=== PATIENT | male | born 1935 | race Caucasian/White ===

== ENCOUNTER 2017-05-22 08:01 | Emergency (ER) | payer MEDICARE ==
[~2017-05-22] VITALS: Ht 180.3 cm; Wt 127.0 kg
[~2017-05-22 08:01] MED LIST: AMIO200T PO; ASPI81TA11 PO; ATOR40TA49 PO; CORE25TA PO; COUM1TAB PO; COZA100T PO; DIGO0.12 PO; LASI20TA PO; LEVEMIR SQ; LYRI100C PO; PRAS10TA PO; REPA.5 OR; VICTOZA SQ; ZETI10TA5 PO
[2017-05-22 08:03] VITALS: BP 171/105; PULSE 106; RESP 16; TEMP 98.2; O2SAT 98
--- NOTE | 2017-05-22 08:24 | PD ---
HPI Chief Complaint: Cardiac Complaint Time Seen by Provider: 08:19 Travel History International Travel<30 days: No Contact w/Intl Traveler<30days: No Traveled to known affect area: No History of Present Illness HPI A 81 male presents to the emergency department for trouble breathing. It has been happening for the past 4 weeks and has become owrse. It is much worse when he lies down and not as bad when he sits up. He has to sleep on 5 pillows. He also has been coughing and has to sit up when he coughs. He gets short of breath when he has to walk from the car to the house. He has not coughed up anything, he has no chest pain, no heart palpitations, no syncope, no dizziness, no N&V, no fevers. He has a hx of an CA 7 years ago and a hx of a fib. History Past Medical History Narrative Medical Hyperlipidemia, hypertension, CAD, diabetes, A fib, CHF Past Surgical History Narrative Surgical Heart stent in 2009 Social History Alcohol Use: No Tobacco Use: No Allergies-Medications (Allergen,Severity, Reaction): Coded Allergies: pioglitazone (Unverified Allergy, Severe, 05/22/17) Reported Meds & Prescriptions Reported Meds & Active Scripts Active Reported Warfarin 2.5 Mg Tab 2.5 Mg PO DAILY ONE 2.5 MG TAB Q SAT, MON, TUES, THURS Warfarin 5 Mg Tab 5 Mg PO DAILY ONE 5 MG TAB Q MON, WED, FRI Humulin R Inj (Insulin Human Regular) 1,000 Unit/10 Ml Vial 5-25 Units SQ ACHS Max dose at bedtime:( )units; sugars < 70,(0)units; sugars 150-199,(5)units; sugars 200-249,(10)units; sugars 250-299,(15)units; sugars 300-349,(20)units; sugars more than 349,(25)units. Atorvastatin (Atorvastatin Calcium) 40 Mg Tab 40 Mg PO HS Furosemide 40 Mg Tab 40 Mg PO DAILY Victoza Inj (Liraglutide Inj) 18 Mg/3 Ml Pen 1.8 Mg SQ DAILY Carvedilol 25 Mg Tab 25 Mg PO DAILY Lyrica (Pregabalin) 200 Mg Cap 200 Mg PO BID Physical Exam Narrative GENERAL: A WDWN male presenting in no acute respiratory distress SKIN: Warm and dry. HEAD: Atraumatic. Normocephalic. EYES: Pupils equal and round. No scleral icterus. No injection or drainage. ENT: No nasal bleeding or discharge. Mucous membranes pink and moist. NECK: Trachea midline. No JVD. CARDIOVASCULAR: Regular rate and rhythm. RESPIRATORY: No accessory muscle use. Breath sounds equal bilaterally. Faint crackles bilaterally in lower lobes. GASTROINTESTINAL: Abdomen soft, non-tender, nondistended. Hepatic and splenic margins not palpable. MUSCULOSKELETAL: Extremities without clubbing, or cyanosis. No obvious deformities. +1 B/L edema in lower extremities NEUROLOGICAL: Awake and alert. No obvious cranial nerve deficits. Motor grossly within normal limits. Five out of 5 muscle strength in the arms and legs. Normal speech. PSYCHIATRIC: Appropriate mood and affect; insight and judgment normal. Data Data Last Documented VS Vital Signs Date Time Temp Pulse Resp B/P (MAP) Pulse Ox O2 Delivery O2 Flow Rate FiO2 05/22/17 10:02 89 16 188/92 (124) 99 Room Air 05/22/17 08:03 98.2 Orders Orders Electrocardiogram (05/22/17 08:32) B-Type Natriuretic Peptide (05/22/17 08:32) Ckmb (Isoenzyme) Profile (05/22/17 08:32) Complete Blood Count With Diff (05/22/17 08:32) Comprehensive Metabolic Panel (05/22/17 08:32) Magnesium (Mg) (05/22/17 08:32) Prothrombin Time / Inr (Pt) (05/22/17 08:32) Act Partial Throm Time (Ptt) (05/22/17 08:32) Troponin I (05/22/17 08:32) Chest, Single Ap (05/22/17 08:32) Ecg Monitoring (05/22/17 08:32) Bilateral Bp Monitoring (05/22/17 08:32) Iv Access Insert/Monitor (05/22/17 08:32) Oximetry (05/22/17 08:32) Oxygen Administration (05/22/17 08:32) Sodium Chloride 0.9% Flush (Ns Flush) (05/22/17 08:45) Labs Laboratory Tests Test 05/22/17 08:35 White Blood Count 10.2 TH/MM3 Red Blood Count 4.49 MIL/MM3 Hemoglobin 14.3 GM/DL Hematocrit 41.8 % Mean Corpuscular Volume 93.0 FL Mean Corpuscular Hemoglobin 31.8 PG Mean Corpuscular Hemoglobin Concent 34.2 % Red Cell Distribution Width 14.8 % Platelet Count 176 TH/MM3 Mean Platelet Volume 9.7 FL Neutrophils (%) (Auto) 79.5 % Lymphocytes (%) (Auto) 10.9 % Monocytes (%) (Auto) 7.1 % Eosinophils (%) (Auto) 2.1 % Basophils (%) (Auto) 0.4 % Neutrophils # (Auto) 8.1 TH/MM3 Lymphocytes # (Auto) 1.1 TH/MM3 Monocytes # (Auto) 0.7 TH/MM3 Eosinophils # (Auto) 0.2 TH/MM3 Basophils # (Auto) 0.0 TH/MM3 CBC Comment DIFF FINAL Differential Comment Prothrombin Time 40.6 SEC Prothromb Time International Ratio 4.0 RATIO Activated Partial Thromboplast Time 41.3 SEC Blood Urea Nitrogen 23 MG/DL Creatinine 1.45 MG/DL Random Glucose 161 MG/DL Total Protein 7.0 GM/DL Albumin 3.3 GM/DL Calcium Level 8.5 MG/DL Magnesium Level 2.0 MG/DL Alkaline Phosphatase 79 U/L Aspartate Amino Transf (AST/SGOT) 22 U/L Alanine Aminotransferase (ALT/SGPT) 33 U/L Total Bilirubin 0.8 MG/DL Sodium Level 138 MEQ/L Potassium Level 4.3 MEQ/L Chloride Level 105 MEQ/L Carbon Dioxide Level 27.3 MEQ/L Anion Gap 6 MEQ/L Estimat Glomerular Filtration Rate 47 ML/MIN Total Creatine Kinase 79 U/L Troponin I LESS THAN 0.02 NG/ML B-Type Natriuretic Peptide 140 PG/ML MDM Medical Decision Making Medical Screen Exam Complete: Yes Emergency Medical Condition: Yes Differential Diagnosis ACS versus CHF versus COPD versus metabolic derangement. Narrative Course 81-year-old male with a history of hypertension, atrial fibrillation, questionable CHF, presents here today with complaints of shortness of breath with exertion and orthopnea. The patient denies any chest pain, chest pressure. He reports holding his Lasix 2 days and then restarted it with double the dose over the last 2 days. states that his lower extremities appear to be more swollen than previous. He has no calf tenderness or palpable cords in his popliteal area. Chest x-ray shows cardiomegaly. On exam he had fine crackles at the bases. The patient's cardiac enzymes are within normal limits. He does have some renal insufficiency. Case was discussed with Dr. Orellana, his community health coordinator, who recommended not changing any medications at this point. He states he would rather see him in the office and discuss possible ablation versus over therapy. The patient will be discharged told to continue his medications except to hold his Coumadin for 2 days since his INR was 4.0. They're instructed to call Dr. Nguyen' his office. He is instructed to return of he develops any worsening symptoms, chest pain, or any other reason the concerns him. Diagnosis Primary Impression: Dyspnea on exertion Additional Impressions: Orthopnea mild fluid retention over anticoagulated Additional Instructions: Hold Coumadin 2 days. I'll up with Dr. Nguyen. Call his office for an appointment. Return if worsening symptoms, chest pain, chest pressure, or any other reason the concerns her. Disposition: 01 DISCHARGE HOME Condition: Stable Rios Stallings MD May 22, 2017 08:24
[2017-05-22] MEDS ORDERED: SODIUM CHLORIDE 0.9% FLUSH 10 ML FLUSH IVF PRN (08:45)
[2017-05-22 08:46] LABS: AUTOMATED NEUTROPHIL # 8.1 TH/MM3 (1.8-7.7); BASOPHIL % 0.4 % (0.0-2.0); EOSINOPHIL # 0.2 TH/MM3 (0-0.4); EOSINOPHIL % 2.1 % (0.0-4.0); HEMATOCRIT 41.8 % (39.0-51.0); HEMOGLOBIN 14.3 GM/DL (13.0-17.0); LYMPH % 10.9 % (9.0-44.0); LYMPHOCYTE # 1.1 TH/MM3 (1.0-4.8); MEAN CORPUSCULAR HEMOGLOBIN 31.8 PG (27.0-34.0); MEAN CORPUSCULAR HGB CONC 34.2 % (32.0-36.0); MEAN PLATELET VOLUME 9.7 FL (7.0-11.0); MONO % 7.1 % (0.0-8.0); MONOCYTE # 0.7 TH/MM3 (0-0.9); NEUT % 79.5 % (16.0-70.0); PLATELET COUNT 176 TH/MM3 (150-450); RED BLOOD COUNT 4.49 MIL/MM3 (4.50-5.90); RED CELL DISTRIBUTION WIDTH 14.8 % (11.6-17.2); WHITE BLOOD COUNT 10.2 TH/MM3 (4.0-11.0)
[2017-05-22 08:50] VITALS: O2SAT 97
[2017-05-22 08:56] LABS: PROTHROMBIN TIME - PATIENT 40.6 SEC (9.8-11.6)
[2017-05-22 09:10] LABS: ALBUMIN 3.3 GM/DL (3.4-5.0); ALT (GPT) 33 U/L (12-78); AST (GOT) 22 U/L (15-37); BICARBONATE 27.3 MEQ/L (21.0-32.0); BLOOD UREA NITROGEN 23 MG/DL (7-18); CALCIUM 8.5 MG/DL (8.5-10.1); CHLORIDE 105 MEQ/L (98-107); CREATININE 1.45 MG/DL (0.60-1.30); GLOMERULAR FILTRATION RATE 47 ML/MIN (>89); GLUCOSE,RANDOM 161 MG/DL (74-106); SODIUM (NA) 138 MEQ/L (136-145)
[2017-05-22 09:14] LABS: ALKALINE PHOSPHATASE 79 U/L (45-117); TOTAL BILIRUBIN ADULT 0.8 MG/DL (0.2-1.0); TROPONIN I LESS THAN 0.02 NG/ML (0.02-0.05)
--- NOTE | 2017-05-22 09:24 | RADRPT ---
EXAM DATE/TIME: 05/22/2017 08:42 [facility] COMPARISON: CHEST SINGLE AP, June 11, 2012, 8:53. INDICATIONS : Chest discomfort. Palpitations. Cough when lying down. MEDICAL HISTORY : Cardiovascular disease. SURGICAL HISTORY : Caridac stent. ENCOUNTER: Initial ACUITY: 1 day PAIN SCORE: 1/10 LOCATION: Bilateral chest FINDINGS: No significant new focal pleural or parenchymal opacities. Cardiac silhouette remains mildly enlarged . Bony thorax is intact. CONCLUSION: 1. Stable mild cardiomegaly. 2. No significant interval change or acute abnormality. Tre Diaz MD on May 22, 2017 at 9:20 Board Certified Radiologist. This report was verified electronically.
[2017-05-22] MEDS ORDERED: CARV25TA PO (09:50)
[2017-05-22] MEDS ORDERED: LYRI200C PO (09:50)
[2017-05-22] MEDS ORDERED: WARF-23 PO (09:50)
[2017-05-22] MEDS ORDERED: FURO40TA PO (09:50)
[2017-05-22] MEDS ORDERED: WARF-18 PO (09:50)
[2017-05-22] MEDS ORDERED: ATOR40TA16 PO (09:50)
[2017-05-22] MEDS ORDERED: VICT18IN SQ (09:50)
[2017-05-22] MEDS ORDERED: INSU100V2 SQ (09:50)
[2017-05-22 10:02] VITALS: BP 188/92; PULSE 89; RESP 16; O2SAT 99
--- NOTE | 2017-05-22 19:12 | EKG ---
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
== END 2017-05-22 11:44 | disposition home or self-care (01) ==
LOC: NEPC 08:01
DX: R06.00 Dyspnea, unspecified (principal); R60.9 Edema, unspecified; I48.91 Unspecified atrial fibrillation; I25.2 Old myocardial infarction; R94.31 Abnormal electrocardiogram [ECG] [EKG]; I51.7 Cardiomegaly; I25.10 Atherosclerotic heart disease of native coronary artery without angina pectoris; I11.0 Hypertensive heart disease with heart failure; I50.9 Heart failure, unspecified
CPT/HCPCS: 71045; 80053; 82550; 83735; 83880; 84484; 85025; 85610; 85730; 93005; 99285

== ENCOUNTER 2017-06-05 14:56 | Day surgery (SDC) | payer MEDICARE ==
[~2017-06-05] VITALS: Ht 177.8 cm; Wt 131.8 kg
[~2017-06-05 14:56] MED LIST changes: -AMIO200T PO; -ASPI81TA11 PO; +ATOR40TA16 PO; -ATOR40TA49 PO; +CARV25TA PO; -CORE25TA PO; -COUM1TAB PO; -COZA100T PO; +DEXAMETHASONE SOD PHOS 4 MG/ML VIAL IV ONE; -DIGO0.12 PO; +ESMOLOL HCL 100 MG/10 ML VIAL IV ONE; +FURO40TA PO; +GLYCOPYRROLATE 1 MG/5 ML SYRINGE IV PUSH ONE; +INSU100V2 SQ; +LABETALOL HCL 100 MG/20 ML VIAL IV ONE; -LASI20TA PO; -LEVEMIR SQ; +LIDOCAINE HCL 1% PF 5 ML SYRINGE OTHER ONE; -LYRI100C PO; +LYRI200C PO; +NEOSTIGMINE 5 MG/5 ML SYRINGE IV PUSH ONE; +ONDANSETRON HCL 4 MG/2 ML VIAL IV ONE; +PHENYLEPH/NS 1000 MCG/10 ML SYR IV ONE; -PRAS10TA PO; +PROPOFOL 200 MG/20 ML AMP IV ONE; -REPA.5 OR; +ROCURONIUM INJ 50 MG/5 ML SYRINGE IV PUSH ONE; +VICT18IN SQ; -VICTOZA SQ; +WARF-18 PO; +WARF-23 PO; -ZETI10TA5 PO; +ePHEDrine/NS 25 MG/5 ML SYRINGE IV ONE; +hydrALAZINE HCL 20 MG/ML VIAL IV ONE
[2017-06-05] MEDS ORDERED: PROPOFOL 200 MG/20 ML AMP OTHER ONE (14:57)
[2017-06-05] MEDS ORDERED: ONDANSETRON HCL 4 MG/2 ML VIAL IV PUSH ONE (14:57)
[2017-06-05 15:40] VITALS: BP 149/123; PULSE 84; RESP 20; TEMP 98.2; O2SAT 97
[2017-06-05] MEDS ORDERED: LACTATED RINGER'S 1000 ML IV PRN (15:45)
[2017-06-05] MEDS ORDERED: SODIUM CHLORID 0.9% 500 ML IV PRN (15:45)
[2017-06-05] MEDS ORDERED: POVIDONE IODINE 5% (ANTISEPSIS KIT) 4 APPLICATIONS EACH NARE PRN (15:45)
[2017-06-05] MEDS ORDERED: SODIUM CHLORID 0.9% 500 ML INJ 500 ML IV SCH (15:45)
[2017-06-05] MEDS ORDERED: LORazepam 1 MG TAB SL SCH (15:45)
[2017-06-05] MEDS ORDERED: CHLORHEXIDINE GLUCONATE 2 % 1 PACK (2 CLOTHS) TOPICAL PRN (15:45)
[2017-06-05] MEDS ORDERED: METOPROLOL TARTRATE 25 MG TAB PO PRN (15:45)
[2017-06-05 16:23] LABS: AUTOMATED NEUTROPHIL # 5.5 TH/MM3 (1.8-7.7); BASOPHIL % 0.4 % (0.0-2.0); EOSINOPHIL # 0.2 TH/MM3 (0-0.4); HEMATOCRIT 41.4 % (39.0-51.0); HEMOGLOBIN 13.8 GM/DL (13.0-17.0); LYMPH % 18.6 % (9.0-44.0); LYMPHOCYTE # 1.5 TH/MM3 (1.0-4.8); MEAN CELL VOLUME 93.9 FL (80.0-100.0); MEAN CORPUSCULAR HEMOGLOBIN 31.4 PG (27.0-34.0); MEAN CORPUSCULAR HGB CONC 33.4 % (32.0-36.0); MEAN PLATELET VOLUME 9.5 FL (7.0-11.0); MONO % 8.8 % (0.0-8.0); MONOCYTE # 0.7 TH/MM3 (0-0.9); NEUT % 69.2 % (16.0-70.0); PLATELET COUNT 187 TH/MM3 (150-450); RED BLOOD COUNT 4.41 MIL/MM3 (4.50-5.90); RED CELL DISTRIBUTION WIDTH 14.5 % (11.6-17.2)
[2017-06-05] MEDS ORDERED: HEPARIN-NS/PF INJ 2,000 ML ONE (16:36)
[2017-06-05 16:42] LABS: INTERNATIONAL NORMALIZED RATIO 2.5 RATIO; PROTHROMBIN TIME - PATIENT 24.8 SEC (9.8-11.6)
[2017-06-05] MEDS ORDERED: HEPARIN-D5W 25,000 U/250 ML 250 ML ONE (16:46)
[2017-06-05] MEDS ORDERED: PROTAMINE SULFATE 50 MG/5 ML VIAL ONE (16:46)
[2017-06-05] MEDS ORDERED: ISOPROTERENOL HCL 1 MG/5 ML AMP ONE ×2 (16:47→16:50)
[2017-06-05] MEDS ORDERED: HEPARIN SODIUM - IV 10,000 UNITS/10 ML VIAL ONE (16:47)
[2017-06-05] MEDS ORDERED: LEVOFLOXACIN 500 MG PREMIX INJ 100 ML IV ONE (16:55)
[2017-06-05 16:58] LABS: BICARBONATE 27.9 MEQ/L (21.0-32.0); CALCIUM 8.7 MG/DL (8.5-10.1); CREATININE 1.42 MG/DL (0.60-1.30)
[2017-06-05] MEDS ORDERED: FUROSEMIDE 40 MG/4 ML VIAL ONE (19:23)
[2017-06-05] MEDS ORDERED: BACITRACIN OINT 0.9 GM PKT TOP ONE (19:30)
[2017-06-05] MEDS ORDERED: oxyCODONE/ACETAMINOPHEN 5 MG/325 MG TAB PO PRN ×2 (19:30)
[2017-06-05] MEDS ORDERED: SODIUM CHLOR 0.9% 250 ML INJ 250 ML IV PRN (19:30)
[2017-06-05] MEDS ORDERED: ATROPINE SULFATE 1 MG/ML VIAL IV PUSH PRN (19:30)
[2017-06-05] MEDS ORDERED: LIDOCAINE HCL 1% 50 ML VIAL INFIL PRN (19:30)
[2017-06-05] MEDS ORDERED: LORazepam 2 MG/ML VIAL IV PUSH PRN (19:30)
[2017-06-05] MEDS ORDERED: ONDANSETRON HCL 4 MG/2 ML VIAL IV PUSH PRN (19:30)
[2017-06-05] MEDS ORDERED: SUGAMMADEX SODIUM 200 MG/2 ML VIAL IV PUSH ONE (19:38)
--- NOTE | 2017-06-05 19:52 | CATHPROC ---
Patient Name: ELIECER GORDON Study #: [id number] Initial MD: Natalie Washburn Date of : 1935 Study Date: 06/05/2017 Cardiac Catheterization Report 06/05/2017 7:52:16 PM Financial #: [id number] 1 of 11 Patient Name: ELIECER GORDON Study #: [id number] Initial MD: Natalie Washburn Date of : 1935 Study Date: 06/05/2017 Entire Case Report Patient Information Patient Name ELIECER GORDON Date of 1935 Age 81 years Financial # [id number] Gender M AlternateID Lab Number 2 Room Number DC06 Height (in) 70.0 Height (cm) 177.8 BSA 2.43 Weight (lbs) 286.7 Weight (kg) 130.3 Patient Address/Phone Number Home Address [facility] Home Phone Number [phone] [facility] [address] Study Information Study Number Admission Scheduled Start Study Start [id number] Jun 05 2017 2:56PM 06/05/2017 Jun 05 2017 4:30PM [place] Electrophysiology Study Admit Source Facility Department Other [facility] Physician and Clinical Staff Initial Natalie Weiss Small Stock Facer Shawn Mancia,RT(R) Other Anesthesia, MANUFACTURING ENGINEERING TECHNICIAN Recorder Heavenly Sy,ANTOINETTE Scrub Luciana Waldrop RCIS Procedures Performed Procedure Location (Site) Vessel Name Ablation Procedure Cardioversion ICE CATHETER INSERT RA Atruim RF Ablation LT. ATRIUM LT. ATRIUM 06/05/2017 7:52:16 PM Financial #: [id number] 2 of 11 Patient Name: ELIECER GORDON Study #: [id number] Initial MD: Natalie Washburn Date of : 1935 Study Date: 06/05/2017 Equipment Time Film Or Tape Librarian Description Size Mfg Part Number Used/Scraped NEEDLE, TRANSSEPTAL NRG 98 [id number] 16:34 [facility] Used C1 *[id number] [employer]/ EP [id number] 16:34 KIT, TRANSDUCER / AFIB Used PACER *[id number]- CATHETER, TACTICATH ABLAT BUNDLE 16:34 [employer] [facility] Used 65 BUNDLE *[id number]- BUNDLE [id number] CATHETER, FR7 OPTIMA SPIRAL 16:34 [employer] FR7 *[id number]- Used BUNDLE BUNDLE [id number] 16:34 [employer] CATHETER, JSN, QUAD BUNDLE FR 5 *[id number]- Used BUNDLE [id number] 16:34 [employer] CATHETER, JSN, QUAD BUNDLE FR 5 *[id number]- Used BUNDLE 46410-[id number] SET, COOL POINT TUBING 16:34 [employer]UND[employer] *[id number]- Used BUNDLE BUNDLE SHEATH, FR8.5 STEERABLE SM 16:34 [employer]UN[facility] 71CM [id number] Used 71CM BUNDLE COVER, TRANSDUCER CABLE 612-113 16:34 [employer] Used ACUNAV *[id number] 16:34 CORDIS/PACER SHEATH, FR10 BRANDAN 11CM FR 10 Used *[id number] 16:34 CORDIS/PACER SHEATH, FR9 BRANDAN 11CM FR 9 [id number] Used [id number] 16:34 [employer] PACK, CCL CUSTOM * Used *[id number] 16:34 [employer] PACER CHU, LIMB * 2530 *[id number] Used [id number] 16:34 [employer] MEDICAL SHEATH, FR4.5 PRELUDE 11CM FR 4.5 Used [id number] [id number] 16:34 NAMIC TUBING, HIGH PRESSURE 48" 48" Used *[id number] 16:34 NAMIC TUBING, HIGH PRESSURE 48" 48" Used *[id number] [id number] 16:34 [employer] BLANKET,WARM AIR CCL * Used *[id number] [id number] 16:34 [facility] MEDICAL ELECTRODE KIT, RICCO X SURFACE * Used *[id number] 187780 16:34 [facility] MEDICAL SHEATH, EPS, FR6 FAST CATH FR 6 Used *[id number] 16:34 [facility] MEDICAL SHEATH, EPS, FR7 FAST CATH FR 7 [id number] Used 667772 16:34 [facility] MEDICAL SHEATH, EPS, FR8 FAST CATH FR 8 Used *[id number] [facility] PAD, ELECTROSURGICAL 16:34 * [id number] *[id number] Used SURGICAL GROUNDING (BLUE) 06/05/2017 7:52:16 PM Financial #: [id number] 3 of 11 Patient Name: ELIECER GORDON Study #: [id number] Initial MD: Natalie Washburn Date of : 1935 Study Date: 06/05/2017 Insurance Information Insurance Payor Medicare Third Constitution Party Third Constitution Party Number MEDICARE A B MCRAB History: Allergies Allergy Reaction pioglitazone History: Risk Factors Hypertension Dyslipidemia Previous Heart Failure Yes Yes Yes Diabetes Labs Hgb (g/dl) Hct (%) RBC (MIL/MM3) WBC (l/cumm) Platelets (thousands) 11.60-17.00 35.00-51.00 4.00-5.90 4.00-11.00 150.00-450.00 15.0 44 5 10 184 Glucose (mg/dl) BUN (mg/dl) Creatinine (mg/dl) BUN:Creatinine (1:x) 74.00-106.00 7.00-18.00 0.50-1.30 10.00-20.00 122 17 0.9 18.9 Na (meq/l) K (meq/l) 136.00-145.00 3.50-5.10 142 4 INR (PTT:PT) 0.90-1.10 1 Medication Medication Total Dose (Bolus/Oral) Medication Total Dosage/Unit 1% XYLOCAINE 40 mL HEPARIN 32376 units LASIX 40 mg PROTAMINE 40 mg 06/05/2017 7:52:16 PM Financial #: [id number] 4 of 11 Patient Name: ELIECER GORDON Study #: [id number] Initial MD: Natalie Washburn Date of : 1935 Study Date: 06/05/2017 Medications (Bolus/Oral) Medication Time Given Dosage/Unit Administered By Reason 1% XYLOCAINE 06/05/2017 5:25:10 PM 20 mL Natalie Washburn 20 mL 1% XYLOCAINE given in lab by Natalie Washburn in Left Groin via Subcutaneous. 1% XYLOCAINE 06/05/2017 5:29:54 PM 20 mL Natalie Washburn 20 mL 1% XYLOCAINE given in lab by Natalie Washburn in Right Groin via Subcutaneous. HEPARIN 06/05/2017 5:39:54 PM 19896 units Anesthesia, MANUFACTURING ENGINEERING TECHNICIAN As per physicians v erbal order 71892 units HEPARIN given in lab by Anesthesia, MANUFACTURING ENGINEERING TECHNICIAN via Peripheral IV. Ordered by Natalie Washburn. Debora son: As per physicians verbal order. PROTAMINE 06/05/2017 7:20:57 PM 40 mg Anesthesia, MANUFACTURING ENGINEERING TECHNICIAN As per physicians yolie bal order 40 mg PROTAMINE given in lab by Anesthesia, MANUFACTURING ENGINEERING TECHNICIAN via Peripheral IV. Ordered by Natalie Washburn. Reason: As per physicians verbal order. LASIX 06/05/2017 7:23:15 PM 40 mg Anesthesia, MANUFACTURING ENGINEERING TECHNICIAN As per physicians verba l order 40 mg LASIX given in lab by Anesthesia, MANUFACTURING ENGINEERING TECHNICIAN via Peripheral IV. Ordered by Natalie Washburn. Reason: As per physicians verbal order. Medication (Drip) Medication Time Given Dosage/Unit Concentration/Unit Diluent (ml) Solution HEPARIN DRIP 06/05/2017 5:57:44 PM 1000 units/hr 77352 units 250 D5W 1000 units/hr HEPARIN DRIP given in lab by Anesthesia, MANUFACTURING ENGINEERING TECHNICIAN via Peripheral IV. Pump/Drip Flow = 10 ml /hr [place] D5[place] [address] units in 250 ml. Ordered by Natalie Washburn. Reason: As per physicians verbal order. ISUPREL 06/05/2017 7:03:38 PM 10 mcg/min 1 mg 250 NaCl .9 10 mcg/min ISUPREL given in lab by Anesthesia, MANUFACTURING ENGINEERING TECHNICIAN via Peripheral IV. Pump/Drip Flow = 150 ml/hr usi ng NaCl .9 with a concentration of 1 mg in 250 ml. Ordered by Natalie Washburn. Reason: As per physicians verbal order. LEVAQUIN 06/05/2017 5:17:52 PM 100 mL/hr 500 100 NaCl .9 100 mL/hr LEVAQUIN given in lab by Anesthesia, MANUFACTURING ENGINEERING TECHNICIAN via Peripheral IV. Pump/Drip Flow = 0 ml/hr using NaCl .9 with a concentration of 500 in 100 ml. Ordered by Natalie Washburn. Reason: As per physicians verbal order. 06/05/2017 7:52:16 PM Financial #: [id number] 5 of 11 Patient Name: ELIECER GORDON Study #: [id number] Initial MD: Natalie Washburn Date of : 1935 Study Date: 06/05/2017 Initial Case Assessment Cardiovascular HR Rhythm NIBP Chest Pain 117 af 206/101 0 Edema Present Skin color Skin None Normal Warm Dry Circulatory - Right Pulses Dorsalis Pedis 2 Scale (0,1,2,3,4,d) Circulatory - Left Pulses Dorsalis Pedis 2 Scale (0,1,2,3,4,d) Circulatory - Lower Extremities Color Lower Right Color Lower Left Normal Normal Neurological State Oriented to time-place- Alert Moves all extremities person Respiration - General Respiration Rate SpO2 (%) (B/min) 20 94 06/05/2017 7:52:16 PM Financial #: [id number] 6 of 11 Patient Name: ELIECER GORDON Study #: [id number] Initial MD: Natalie Washburn Date of : 1935 Study Date: 06/05/2017 Final Case Assessment Cardiovascular HR Rhythm NIBP Chest Pain 81 sr 97/54 0 Edema Present Skin color Skin None Normal Warm Dry Circulatory - Right Pulses Dorsalis Pedis 2 Scale (0,1,2,3,4,d) Circulatory - Left Pulses Dorsalis Pedis 2 Scale (0,1,2,3,4,d) Circulatory - Lower Extremities Color Lower Right Color Lower Left Normal Normal Neurological State Unresponsive Comment: under anesthesia Respiration - General Respiration Rate SpO2 (%) (B/min) 14 92 Respiration - Ventilator Type Intubation Type ET(oral) Respiration - Ventilator Settings FIO2 (%) 50 Chronological Log Time Study Chronological Log 16:43:59 Patient arrived via Bed. 16:44:00 Patient Name, D.O.B, / Armband Verified By R.N. 16:44:01 Consent signed by the physician and the patient and verified by the Suspender Cutter staff. 06/05/2017 7:52:16 PM Financial #: [id number] 7 of 11 Patient Name: ELIECER GORDON Study #: [id number] Initial MD: Natalie Washburn Date of : 1935 Study Date: 06/05/2017 16:44:02 Pre-op and post- op instructions given; patient acknowledges understanding of instructions. 16:44:04 History and physical on the chart. 16:44:04 Verbal Stimulation=2 Physical Stimulation=2 Airway=2 Respiration=2 TOTAL=8. (0=absent, 1=li mited, 2=present) 16:44:12 Anesthesia at bedside. Assumes care of patient. Josue 16:44:14 Patient has been NPO for More than 6Hrs. 16:44:16 Skin Breakdown- skin cancer left nare, generalizd scabs and bruised areas. 16:44:41 A # 20 IV was noted in the Hand (right). Grade = 0 0.9%NaCl @ KVO 16:44:42 A # 20 IV was noted in the Forearm (left). Grade = 0 0.9%NaCl @ KVO 16:46:21 Patient Warmer Placed on the Table. 16:46:36 Disposable Defibrillator Pads Placed On Patient. 16:47:34 Rut Prominences Protected 16:53:38 Table restraints applied according to hospital policy Assessment: Initial Case, LC=226 BPM, Rhythm=af, CARW=558/101 mmhg, Chest Pain=0, Edema=None, Color=Normal, Skin = Warm, Dry Right Pulses: Sebastian Ped=2 Left Pulses: Sebastian Ped=2 16:55:00 Lower Right Extremities: Color=Normal Lower Left Extremities: Color=Normal Neurological: State=Alert, Ox3, BELLO Respiration: Resp=20 B/min, SpO2=94 % 17:00:35 Anesthesiologist present for intubation. 14 fr Hall inserted w/o difficulty. Clear yellow urine obtained. 17:07:35 Right groin prepped with 2% chlorhexidine, and draped after a 3 min. waiting time. 17:14:23 MD paged Time Out. Correct patient, procedure, procedure equipment, site and side verified with physicia n present. Time 17:17:00 concurred by MD, individual staff and MANUFACTURING ENGINEERING TECHNICIAN. Time Out #2 - Consents verified, patient in correct position, all results are labled and displa yed, safety precautions 17:17:20 taken, antibiotics administered. Time out concurred by MD, individual staff and MANUFACTURING ENGINEERING TECHNICIAN in procedu re 17:17:23 MD arrived. 100 mL/hr LEVAQUIN given in lab by Anesthesia, MANUFACTURING ENGINEERING TECHNICIAN via Peripheral IV. Pump/Drip Flow = 0 ml/hr using NaCl .9 with 17:17:52 a concentration of 500 in 100 ml. Ordered by Natalie Washburn. Reason: As per physicians verbal or mar. 17:17:55 Case Start 17:17:59 Eladio in progress. 17:24:38 Eladio complete 17:25:10 20 mL 1% XYLOCAINE given in lab by Natalie Washburn in Left Groin via Subcutaneous. 17:25:56 Vascular access was obtained in the Fem Vein (left). 17:26:01 Vascular access was obtained in the Fem Vein (left). 17:26:08 Vascular access was obtained in the Fem Vein (left). 17:26:16 Vascular access was obtained in the Fem Art (left). A SHEATH, FR4.5 PRELUDE 11CM FR 4.5 was advanced into the Fem Art (left) using the Modified Megan abi technique. 17:27:57 0.9ns pressure bag connected for anesthesia A SHEATH, EPS, FR6 FAST CATH FR 6 was advanced into the Fem Vein (left) using the Modified Seld zuly technique. 17:28:30 0.9ns pressure bag connected for ACT draws. 17:28:42 A SHEATH, EPS, FR7 FAST CATH FR 7 was advanced into the Fem Vein (left) using the Modified Seldinger technique. 06/05/2017 7:52:16 PM Financial #: [id number] 8 of 11 Patient Name: ELIECER GORDON Study #: [id number] Initial MD: Natalie Washburn Date of : 1935 Study Date: 06/05/2017 17:28:54 A SHEATH, FR10 BRANDAN 11CM FR 10 was advanced into the Fem Vein (left) using the Modified S eldinger technique. 17:29:54 20 mL 1% XYLOCAINE given in lab by Natalie Washburn in Right Groin via Subcutaneous. 17:31:07 Vascular access was obtained in the Fem Vein (right). 17:31:30 A SHEATH, EPS, FR8 FAST CATH FR 8 was advanced into the Fem Vein (right) using the Modified Seldinger technique. A CATHETER, JSN, QUAD BUNDLE FR 5 was advanced vis Fem Vein (left) and placed in the CS. Placem ent was visually 17:32:28 confirmed under fluoroscopy. A CATHETER, JSN, QUAD BUNDLE FR 5 was advanced vis Fem Vein (left) and placed in the HIS. Place ment was 17:32:54 visually confirmed under fluoroscopy. 17:35:33 ice catheter Was Postioned. A SHEATH, FR8.5 STEERABLE SM 71CM BUNDLE 71CM was exchanged in the Fem Vein (right). This was n ecessary in 17:37:17 order for catheter support. 17:37:58 [place] [address] units HEPARIN given in lab by Anesthesia, MANUFACTURING ENGINEERING TECHNICIAN via Peripheral IV. Ordered by Willi Washburn Reason: As per 17:39:54 physicians verbal order. 17:41:00 A eps was advanced to the right atrium and passed through the septal wall to the left atriu m. 17:41:13 [place] out A CATHETER, FR7 OPTIMA SPIRAL BUNDLE FR7 was advanced vis Fem Vein (right) and placed in the LA . Placement 17:41:44 was visually confirmed under fluoroscopy. Mapping in progress. 17:44:44 Reference ECG taken 17:45:16 Activated Clotting Time Drawn 17:48:00 Mapping complete. Catheter was removed A CATHETER, TACTICATH ABLAT 65 BUNDLE was advanced vis Fem Vein (right) and placed in the LA. P lacement was 17:50:00 visually confirmed under fluoroscopy. 17:54:13 ACT (Normal Range 90-180) = 391 1000 units/hr HEPARIN DRIP given in lab by Anesthesia, MANUFACTURING ENGINEERING TECHNICIAN via Peripheral IV. Pump/Drip Flow = 10 ml/hr using 17:57:44 D5[place] [address] units in 250 ml. Ordered by Hanscy. Wu Reason: As per kanika paredes verbal order. 17:58:06 RF Ablation of the LT. ATRIUM with a CATHETER, TACTICATH ABLAT 65 BUNDLE. 18:30:09 Activated Clotting Time Drawn. Ablation continues. 18:37:47 ACT (Normal Range 90-180) = 376 18:52:00 Ablation Catheter was removed A CATHETER, FR7 OPTIMA SPIRAL BUNDLE FR7 was advanced vis Fem Vein (right) and placed in the LA . Placement 18:52:13 was visually confirmed under fluoroscopy. 18:55:59 Mapping Catheter was removed A CATHETER, TACTICATH ABLAT 65 BUNDLE was advanced vis Fem Vein (right) and placed in the LA. P lacement was 18:56:15 visually confirmed under fluoroscopy. 18:56:28 RF Ablation of the LT. ATRIUM with a eps. 18:59:36 Ablation Catheter was removed 19:00:59 ECG rhythm of AF noted. Patient cardioverted at 200 joules. Success synch 19:01:50 EPS in progress. 10 mcg/min ISUPREL given in lab by Anesthesia, MANUFACTURING ENGINEERING TECHNICIAN via Peripheral IV. Pump/Drip Flow = 150 ml/ hr using NaCl .9 19:03:38 with a concentration of 1 mg in 250 ml. Ordered by Natalie Washburn. Reason: As per physicians yolie bal order. 19:05:45 Sheath(s) left in place, sutured, 0.9ns will be connected and will be removed in Holding Ar ea 19:13:30 Isuprel off. 19:15:48 All Catheter(s) removed without difficulty. 06/05/2017 7:52:16 PM Financial #: [id number] Patient Name: ELIECER GORDON Study #: [id number] Initial MD: Natalie Washburn Date of : 1935 Study Date: 06/05/2017 19:16:06 Ablation procedure performed: AFIB. 19:16:14 EP Procedure was performed. 19:18:41 Sterile dressing applied to site Assessment: Final Case, HR=81 BPM, Rhythm=sr, NIBP=97/54 mmhg, Chest Pain=0, Edema=None, Color =Normal, Skin = Warm, Dry Right Pulses: Sebastian Ped=2 Left Pulses: Sebastian Ped=2 19:18:48 Lower Right Extremities: Color=Normal Lower Left Extremities: Color=Normal Neurological: State=Unresponsive, Comment=under anesthesia Respiration: Resp=14 B/min, SpO2=92 %, Type=ET(Oral), FIO2=50 % 40 mg PROTAMINE given in lab by Anesthesia, MANUFACTURING ENGINEERING TECHNICIAN via Peripheral IV. Ordered by Natalie Washburn. Reason: As per 19:20:57 physicians verbal order. 19:23:09 PACU called. Spoke to Evan 40 mg LASIX given in lab by Anesthesia, MANUFACTURING ENGINEERING TECHNICIAN via Peripheral IV. Ordered by Natalie Washburn. Reas on: As per physicians 19:23:15 verbal order. 19:23:18 Bedside Report will be given. 19:30:04 Case End 19:40:06 Pt waking up from anesthesia pushing against arm guards, bending knees, biting ett, non co mpliant. 19:42:38 Activated Clotting Time Drawn 19:43:42 ACT (Normal Range 90-180) = 144 19:46:10 Portia Palma and cristina Russo notified of ACT result. 19:48:38 Patient moved to stretcher 19:50:56 Defibrillator and ground pads removed. Skin intact. 19:51:47 Pt to pacu w anesthesia, monitor, o2. End Study - Contrast Media Used In Study Contrast Total Opened (mL) Total Used (mL) Total Wasted (mL) Unspecified 0 0 0 End Study - Maximum Contrast Load Max Contrast Load (mL) 724.0 End Study - Radiation Exposure Fluoro Time (minutes) 1.7 06/05/2017 7:52:16 PM Financial #: [id number] Patient Name: ELIECER GORDON Study #: [id number] Initial MD: Natalie Washburn Date of : 1935 Study Date: 06/05/2017 End Study - Patient Disposition Complications Transferred To Interventional Outcome No Telemetry Bed successful 06/05/2017 7:52:16 PM Financial #: [id number]
[2017-06-05] MEDS ORDERED: *RESP: ALBUTEROL 2.5 MG/3 ML NEB (PRN) PERIprocedural Use ONLY NEB ONE (20:57)
[2017-06-05] MEDS ORDERED: DO NOT ADM ANY ANTICOAGULANT DRUGS PRN (21:00)
[2017-06-05] MEDS ORDERED: ATORVASTATIN 40 MG TAB PO SCH (21:00)
[2017-06-05 22:00] VITALS: BP 145/65; PULSE 89; PULSE 91; RESP 20; TEMP 97.5; O2SAT 96
[2017-06-05] MEDS: PREGABALIN 100 MG CAP PO SCH (22:54)
[2017-06-05 23:00] VITALS: PULSE 95
[2017-06-05 23:30] VITALS: BP 158/68; PULSE 93; RESP 20; TEMP 97.9; O2SAT 95
[2017-06-05] MEDS ORDERED: GLUCAGON 1 MG/ML VIAL OTHER PRN (23:45)
[2017-06-05] MEDS ORDERED: DEXTROSE 50% IN WATER 50 ML VIAL(D50) IV PUSH PRN (23:45)
[2017-06-06] VITALS (18 sets, daily range): BP systolic 132–150; BP diastolic 61–67; PULSE 74–95; RESP 18–20; TEMP 97.6–98.4; O2SAT 92–98
[2017-06-06] MEDS ORDERED: MEDIUM DOSE INSULIN NOVOLIN REGULAR SUPPLEMENTAL SCALE SQ SCH (00:15)
[2017-06-06 04:35] LABS: PROTHROMBIN TIME - PATIENT 30.2 SEC (9.8-11.6)
[2017-06-06] MEDS: MEDIUM DOSE INSULIN NOVOLIN REGULAR SUPPLEMENTAL SCALE SQ SCH ×2 (08:00→12:00)
[2017-06-06] MEDS: PREGABALIN 100 MG CAP PO SCH (08:09)
[2017-06-06] MEDS ORDERED: NON-FORMULARY DRUG (Liraglutide Inj (Victoza Inj) 1.8 MG) SQ SCH (09:00)
[2017-06-06] MEDS ORDERED: FUROSEMIDE 40 MG TAB PO SCH (09:00)
[2017-06-06] MEDS ORDERED: LIRAGLUTIDE SQ SCH (09:00)
[2017-06-06] MEDS ORDERED: CARVEDILOL 12.5 MG TAB PO SCH (09:00)
--- NOTE | 2017-06-06 14:14 | PD.CARD ---
Atrial Fibrillation Ablation PROCEDURE DATE: Jun 06, 2017 PROCEDURES PERFORMED: 1. Electrophysiology study on Isuprel infusion 2. CS cannulation 3. 3-D mapping 4. Transseptal approach 5. Right and left heart catheterization 6. Intracardiac echo 7. Radiofrequency ablation of atrial fibrillation 8. Pulmonary vein isolation 9. Posterior wall ablation 10. Mitral valve isolation 11. Mitral line creation 12. Left atrial tachycardia ablation 13. Roof line creation 14. Floor line creation 15. Anterior wall ablation 16. Cardioversion INDICATIONS FOR THE PROCEDURE Mr. Puenet is a 81-year-old male with atrial fibrillation, very symptomatic, on anticoagulation referred for electrophysiology study and ablation. The risks, the nature and the benefits of the procedure were clearly stated to him. The risks include pneumothorax, cardiac perforation, stroke, need for open heart surgery and even . The patient understood and agreed to proceed. DESCRIPTION OF THE PROCEDURE IN DETAIL As written informed consent was obtained prior to esophageal echocardiogram, the patient was kept on the table where he was prepped and draped in the usual sterile fashion. Conscious sedation was initiated and maintained throughout the procedure by the anesthesiologist. Once sedation was verified, the right and left inguinal areas were anesthetized with 2% Xylocaine. Using modified Seldinger technique, the left femoral vein was cannulated on three occasions, three guidewires were advanced. Over the wire a 6, 7 and a 10-Mosotho Hemaquet were advanced. Then the left femoral artery was cannulated on one occasion, one guidewire was advanced. Over the wire a 4-Mosotho Hemaquet was advanced. Then the right femoral vein was cannulated on one occasion, one guidewire was advanced. Over the wire a 8-Mosotho Hemaquet was advanced. Then under fluoroscopic guidance through the 6 and 7-Mosotho Hemaquet, two 5-Mosotho Lisa curved quadripolar electrophysiology catheters were advanced and placed around the His as well as coronary sinus. Basic interval was measured. The patient was in atrial fibrillation. Through the 10-Mosotho Hemaquet, a Cordis Thompson AcuNav intracardiac echo catheter was advanced and placed at the right atrium. Multiple view was obtained. There was no pericardial effusion, pulmonary vein was seen, atrial septal was visualized. Then the 8-Mosotho Hemaquet in the right femoral vein was exchanged for Agilis transseptal sheath that was placed all the way to the superior vena cava. Through the sheath a Wanda needle was advanced, then the sheath, the dilator and the needle were progressed until foci engaged. Once engaged, the needle was advanced. RF was delivered for 2 seconds. I was able to cross into the left atrium. Once the needle crossed, the dilator was advanced. Once the dilator crossed, the sheath was advanced. Once the sheath crossed, the dilator and the needle were removed. At this point I did flood the system and fluid movement was seen in the left atrium the indicates the sheath is in good position. The patient already received 10,000 units of heparin. The goal is to keep an ACT around 350 during ablation. Then through the sheath a [place]. Rhett 20 pulse circumferential catheter was advanced. Using The Skimm endocardial solution mapping system, a two-dimensional configuration of the left atrium was obtained. Points were taken at the left superior and inferior veins, right superior and inferior veins, mitral valve, and appendages. Then through the sheath a [employer]. Rhett TactiCath 65cm 3.5mm irrigated tipped mapping and radiofrequency ablation catheter was advanced. Esophageal probe was placed temperature monitoring during ablation. When it increased to 0.5 degrees Celsius above baseline, I moved to a different area of the atrium. First I did isolate the left superior and inferior vein. I did make a [place] around the veins. Posterior was ablated. Then a roof line was created, a floor line was created, a mitral line was isolated, then the mitral valve was isolated. At that point the patient was in left atrial tachycardia. Left atrial tach was mapped. Anterior wall was ablated. I did create a line from the floor to the roof area, passing by the left atrial appendage. Then the right superior and inferior veins were isolated. I did remap the atrium. I did ablated around the left atrial appendage. At this point I decided to proceed with cardioversion. A 200 sync biphasic joule was delivered that converted the patient into sinus rhythm. At that point I did advance the circumferential catheter again into the vein. There was no signal into the vein, pacing from the vein showed no conduction to the atrium. Isuprel infusion was initiated at 10 mcg for over 10 minutes. No tachyarrhythmia was induced, post Isuprel no tachyarrhythmia was induced. At that point the procedure was complete. All catheters were removed, atrial septal sheath was exchanged for 9-Mosotho Hemaquet, intracardiac echo showed no pericardial effusion. There is still good flow in the pulmonary vein. The patient is going to be transferred to the recovery room. No incident report. The patient tolerated the procedure. Blood loss was minimal. FINDINGS 1. Electrocardiogram: At baseline the patient was in atrial fibrillation, post procedure the patient was in sinus rhythm. 2. Basic interval: Base cycle length was around 480. Post ablation she was around 980 milliseconds. AH at 78 and HV at 62 milliseconds. 3. Tachyarrhythmia: Atrial fibrillation was mapped and ablated. Atrial tachycardia was ablated. The ablation was successful. CONCLUSION Successful electrophysiology study, mapping, radiofrequency ablation of atrial fibrillation, left atrial tachycardia, pulmonary vein isolation, posterior ablation, mitral valve isolation, mitral line creation, roof line creation, floor line creation, left atrial tachycardia,left atrial appendage ablation and cardioversion. COMMENTS AND RECOMMENDATIONS The patient is going to be transferred to the telemetry unit. Will be observed and when stable can be discharged home. Natalie Washburn MD Jun 06, 2017 14:14
--- NOTE | 2017-06-06 14:20 | HHI.PR ---
Subjective Remarks Feeling better Objective Vital Signs Date Time Temp Pulse Resp B/P (MAP) Pulse Ox O2 Delivery O2 Flow Rate FiO2 06/06/17 12:01 81 06/06/17 11:01 97.7 79 18 134/61 (85) 94 06/06/17 11:01 75 06/06/17 11:01 94 Room Air 06/06/17 10:00 82 06/06/17 09:00 84 06/06/17 08:56 92 21 06/06/17 08:01 97.6 89 18 132/63 (86) 96 06/06/17 08:01 96 Nasal Cannula 2.00 06/06/17 08:00 80 06/06/17 07:01 84 06/06/17 06:00 84 06/06/17 05:00 84 06/06/17 04:00 90 06/06/17 03:25 93 Nasal Cannula 2.00 06/06/17 03:20 88 Room Air 06/06/17 03:10 95 Nasal Cannula 3.00 06/06/17 03:00 85 06/06/17 03:00 98 Nasal Cannula 4.00 06/06/17 03:00 98.4 95 20 150/67 (94) 98 06/06/17 02:00 92 06/06/17 01:00 94 06/06/17 00:00 91 06/05/17 23:30 97.9 93 20 158/68 (98) 95 06/05/17 23:30 95 Nasal Cannula 4.00 06/05/17 23:00 95 06/05/17 22:20 Nasal Cannula 4.00 06/05/17 22:00 89 06/05/17 22:00 97.5 91 20 145/65 (91) 96 06/05/17 22:00 96 Nasal Cannula 4.00 06/05/17 22:00 96 Nasal Cannula 4.00 06/05/17 21:45 98.0 88 21 148/65 (92) 93 Nasal Cannula 4 06/05/17 21:30 88 22 137/63 (87) 92 Nasal Cannula 4 06/05/17 21:15 88 21 145/65 (91) 93 Nasal Cannula 4 06/05/17 21:00 86 22 139/63 (88) 93 Nasal Cannula 4 06/05/17 20:45 87 25 150/58 (88) 94 Simple Mask 8 06/05/17 20:30 90 23 151/71 (97) 95 Simple Mask 8 06/05/17 20:15 87 22 146/74 (98) 94 Simple Mask 8 06/05/17 20:00 91 22 141/76 (97) 92 Simple Mask 8 06/05/17 19:59 97.6 91 22 136/68 (90) 92 Simple Mask 8 06/05/17 15:40 98.2 84 20 149/123 (132) 97 I/O 06/05/17 06/05/17 06/05/17 06/06/17 06/06/17 06/06/17 06:59 14:59 22:59 06:59 14:59 22:59 Intake Total 100 ml 720 ml Output Total 950 ml 300 ml Balance -850 ml 420 ml Intake Oral 100 ml 720 ml Output Urine Total 950 ml 300 ml # Voids 0 # Bowel Movements 0 Result Diagram: 06/05/17 1550 06/05/17 1550 Imaging Alert, fully oriented lungs: ventilated Heart: S1, S2 regular Abdomen: soft, no mass Ext: no edema Current Medications Medications (Trade) Dose Ordered Sig/Chato Route Start Time Stop Time Status Last Admin Sodium Chloride 500 ml @ 30 mls/hr [id number] IV 06/05/17 15:45 (Ativan) 1 mg JOY OPERATOR HELPER SL 06/05/17 15:45 06/08/17 15:44 Lactated Ringer's 1,000 ml @ 30 mls/hr Q24H PRN IV 06/05/17 15:45 06/08/17 15:44 Sodium Chloride 500 ml @ 30 mls/hr [id number] PRN IV 06/05/17 15:45 06/08/17 15:44 (Lopressor) 25 mg JOY OPERATOR HELPER PRN PO 06/05/17 15:45 06/08/17 15:44 (Betadine 5% Antisepsis Kit) 1 applic JOY OPERATOR HELPER PRN EACH NARE 06/05/17 15:45 06/08/17 15:44 (Chlorhexidine 2% Cloth) 3 pack JOY OPERATOR HELPER PRN TOPICAL 06/05/17 15:45 06/08/17 15:44 (Percocet 5-325 Mg) 1 tab Q4H PRN PO 06/05/17 19:30 (Percocet 5-325 Mg) 2 tab Q4H PRN PO 06/05/17 19:30 (Ativan Inj) 0.5 mg UNSCH PRN IV PUSH 06/05/17 19:30 06/06/17 19:29 (Atropine Inj) 0.5 mg UNSCH PRN IV PUSH 06/05/17 19:30 Sodium Chloride 250 ml @ 500 mls/hr ONCE PRN IV 06/05/17 19:30 06/06/17 19:29 (Zofran Inj) 4 mg Q4H PRN IV PUSH 06/05/17 19:30 (Xylocaine 1% Inj (50 ml)) 10 ml UNSCH PRN INFIL 06/05/17 19:30 06/06/17 19:29 (Lipitor) 40 mg HS PO 06/05/17 21:00 06/05/17 22:53 (Coreg) 25 mg DAILY PO 06/06/17 09:00 06/06/17 08:08 (Lasix) 40 mg DAILY PO 06/06/17 09:00 06/06/17 08:09 (Lyrica) 200 mg BID PO 06/05/17 21:00 06/06/17 08:09 (Coumadin) 2.5 mg DAILY@1600 PO 06/06/17 16:00 Future Hold (Coumadin) 5 mg DAILY@1600 PO 06/06/17 16:00 Future Hold Patient Own Medication PT OWN MED: VICOTZA(LIRAGLUTIDE) 1.8 MG SQ DAILY DAILY SQ 06/06/17 09:00 Future Hold Miscellaneous Information ALL NURSING DEPARTME... UNSCH PRN .XX 06/05/17 21:00 06/06/17 20:59 (D50w (Vial) Inj) 50 ml UNSCH PRN IV PUSH 06/05/17 23:45 (Glucagon Inj) 1 mg UNSCH PRN OTHER 06/05/17 23:45 (NovoLIN R SUPPLEMENTAL SCALE) 1 ACHS SLIDING SCALE SQ 06/06/17 08:00 06/06/17 12:00 Assessment and Plan Problem List: (1) Atrial fibrillation ICD Codes: I48.91 - Unspecified atrial fibrillation Plan: In sinus rhythm SP ablation Feeling better (2) Palpitations ICD Codes: R00.2 - Palpitations Plan: No episode reported since ablation (3) Shortness of breath ICD Codes: R06.02 - Shortness of breath Plan: Feeling better Natalie Washburn MD Jun 06, 2017 14:20
[2017-06-06] MEDS ORDERED: WARFARIN SOD 5 MG TAB PO SCH (16:00)
[2017-06-06] MEDS ORDERED: WARFARIN SOD 2.5 MG TAB PO SCH (16:00)
--- NOTE | 2017-06-06 17:36 | EKG ---
Date Performed: 06/05/2017 Time Performed: 20:47:45 PTAGE: 81 years EKG: Sinus rhythm WITH FIRST DEGREE AV BLOCK LOW QRS VOLTAGE IN EXTREMITY LEADS ABNORMAL ECG PREVIOUS TRACING : 06/05/2017 16.30 DOCTOR: Natalie Washburn Interpretating Date/Time 06/06/2017 17:28:48
--- NOTE | 2017-06-06 17:41 | EKG ---
Date Performed: 06/05/2017 Time Performed: 16:30:12 PTAGE: 81 years EKG: Atrial fibrillation. Low QRS voltages in limb leads Abnormal ECG NO PREVIOUS TRACING DOCTOR: Natalie Washburn Interpretating Date/Time 06/06/2017 17:34:09
== END 2017-06-06 15:50 | disposition home or self-care (01) ==
LOC: HCAT 14:56 → HDIC 14:57 → HCPC 22:00 → HCAT 06-06 15:50
PROVIDERS: ATTEND Internal Medicine Interventional Cardiology
DX: I48.0 Paroxysmal atrial fibrillation (principal); I47.1 Supraventricular tachycardia; I25.10 Atherosclerotic heart disease of native coronary artery without angina pectoris; I10 Essential (primary) hypertension; I50.9 Heart failure, unspecified; E78.5 Hyperlipidemia, unspecified; E11.9 Type 2 diabetes mellitus without complications; Z79.4 Long term (current) use of insulin; Z95.1 Presence of aortocoronary bypass graft; Z79.01 Long term (current) use of anticoagulants
CPT/HCPCS: 00537; 80048; 82948; 85002; 85025; 85610; 85730; 86850; 86900; 86901; 88300; 92960; 93005; 93312; 93320; 93325; 93613; 93623; 93656; 93662; 94664; C1730; C1731; C1732; C1759; C1766; C2630; J0360; J1100; J1644; J1940; J1956; J2370; J2405; J2710; J2720; J3010; J7613

== ENCOUNTER 2017-06-07 23:25 | Inpatient (IN) | payer MEDICARE ==
[~2017-06-07] VITALS: Ht 177.8 cm; Wt 130.2 kg
[~2017-06-07 23:25] MED LIST changes: -DEXAMETHASONE SOD PHOS 4 MG/ML VIAL IV ONE; -ESMOLOL HCL 100 MG/10 ML VIAL IV ONE; -GLYCOPYRROLATE 1 MG/5 ML SYRINGE IV PUSH ONE; -LABETALOL HCL 100 MG/20 ML VIAL IV ONE; -LIDOCAINE HCL 1% PF 5 ML SYRINGE OTHER ONE; -NEOSTIGMINE 5 MG/5 ML SYRINGE IV PUSH ONE; -ONDANSETRON HCL 4 MG/2 ML VIAL IV ONE; -PHENYLEPH/NS 1000 MCG/10 ML SYR IV ONE; -PROPOFOL 200 MG/20 ML AMP IV ONE; -ROCURONIUM INJ 50 MG/5 ML SYRINGE IV PUSH ONE; -ePHEDrine/NS 25 MG/5 ML SYRINGE IV ONE; -hydrALAZINE HCL 20 MG/ML VIAL IV ONE
[2017-06-07 23:27] VITALS: BP 186/79; PULSE 92; RESP 28; TEMP 98.4; O2SAT 89
[2017-06-07 23:40] VITALS: BP 191/78; PULSE 89; RESP 30; O2SAT 96
[2017-06-07 23:44] VITALS: BP_SYST 155; BP_SYST 191; BP_DIAS 70; BP_DIAS 78; PULSE 84; O2SAT 98
[2017-06-07] MEDS ORDERED: SODIUM CHLORIDE 0.9% FLUSH 10 ML FLUSH IVF PRN (23:45)
[2017-06-07] MEDS ORDERED: FUROSEMIDE 40 MG/4 ML VIAL IV PUSH ONE (23:45)
[2017-06-07] MEDS ORDERED: NITROGLYCERIN 2% OINT 1 GM PACKET TOP ONE (23:45)
[2017-06-07 23:52] LABS: AUTOMATED NEUTROPHIL # 10.4 TH/MM3 (1.8-7.7); BASOPHIL % 0.3 % (0.0-2.0); EOSINOPHIL # 0.1 TH/MM3 (0-0.4); EOSINOPHIL % 0.6 % (0.0-4.0); HEMATOCRIT 36.3 % (39.0-51.0); HEMOGLOBIN 12.5 GM/DL (13.0-17.0); LYMPH % 8.1 % (9.0-44.0); MEAN CELL VOLUME 92.6 FL (80.0-100.0); MEAN CORPUSCULAR HGB CONC 34.5 % (32.0-36.0); MONO % 7.9 % (0.0-8.0); NEUT % 83.1 % (16.0-70.0); PLATELET COUNT 160 TH/MM3 (150-450); RED BLOOD COUNT 3.92 MIL/MM3 (4.50-5.90); RED CELL DISTRIBUTION WIDTH 14.8 % (11.6-17.2); WHITE BLOOD COUNT 12.5 TH/MM3 (4.0-11.0)
[2017-06-08] VITALS (13 sets, daily range): BP systolic 105–161; BP diastolic 60–87; PULSE 80–102; RESP 16–27; TEMP 96.5–97; O2SAT 94–99
[2017-06-08 00:04] LABS: INTERNATIONAL NORMALIZED RATIO 2.4 RATIO; PROTHROMBIN TIME - PATIENT 23.8 SEC (9.8-11.6)
[2017-06-08 00:14] LABS: ALBUMIN 3.1 GM/DL (3.4-5.0); ALKALINE PHOSPHATASE 109 U/L (45-117); ALT (GPT) 40 U/L (12-78); AST (GOT) 28 U/L (15-37); BICARBONATE 25.5 MEQ/L (21.0-32.0); BLOOD UREA NITROGEN 55 MG/DL (7-18); CALCIUM 7.7 MG/DL (8.5-10.1); CHLORIDE 102 MEQ/L (98-107); CREATININE 1.94 MG/DL (0.60-1.30); GLOMERULAR FILTRATION RATE 33 ML/MIN (>89); GLUCOSE,RANDOM 264 MG/DL (74-106); MAGNESIUM 2.1 MG/DL (1.5-2.5); SODIUM (NA) 136 MEQ/L (136-145); TOTAL BILIRUBIN ADULT 0.6 MG/DL (0.2-1.0); TOTAL PROTEIN 6.5 GM/DL (6.4-8.2)
[2017-06-08 00:18] LABS: TROPONIN I 1.62 NG/ML (0.02-0.05)
--- NOTE | 2017-06-08 00:23 | RADRPT ---
EXAM DATE/TIME: 06/07/2017 23:46 [facility] COMPARISON: CHEST SINGLE AP, May 22, 2017, 8:42. INDICATIONS : Shortness of breath, difficulty breathing MEDICAL HISTORY : Cardiovascular disease SURGICAL HISTORY : Caridac stent. ENCOUNTER: Initial ACUITY: 1 day PAIN SCORE: 0/10 LOCATION: Bilateral chest FINDINGS: Interval development of fullness and indistinctness of the central bronchopulmonary markings bilatera lly and partially consolidated infiltrate of the left lung base. Portions of both hemidiaphragms are still discernible. There is thickening of the lateral pleura on the right side suggesting coexisten t pleural effusion. The heart is enlarged, similar to prior. CONCLUSION: Interval development of fullness and indistinctness of the central bronchopulmonary markings, right p leural effusion, and patchy infiltrates in the left lower lobe. Mckinley Villegas MD on June 08, 2017 at 0:21 Board Certified Radiologist. This report was verified electronically.
[2017-06-08] MEDS ORDERED: PIPERACIL-TAZO 3.375 GM PREMIX 50 ML IV ONE (00:45)
[2017-06-08] MEDS ORDERED: VANCOMYCIN 1 GM/200 ML INJ 200 ML IV ONE (03:45)
--- NOTE | 2017-06-08 04:28 | PD ---
HPI . Acute respiratory distress Chief Complaint: Respiratory Distress Time Seen by Provider: 23:36 Travel History International Travel<30 days: No Contact w/Intl Traveler<30days: No Traveled to known affect area: No History of Present Illness HPI 81-year-old male status post cardiac radioablation via right femoral approach 2 days ago, presents with having relatively sudden onset shortness of breath and orthopnea this evening. Patient denies having fever chills sweats, cough, chest pain. PFSH Past Medical History Narrative Medical Past medical history reviewed Autoimmune Disease: No Heart Rhythm Problems: Yes Cancer: No Cardiac Catheterization: Yes (stents) Cardiovascular Problems: Yes High Cholesterol: Yes Chest Pain: Yes Congestive Heart Failure: Yes Diabetes: Yes Patient Takes Glucophage: No Diminished Hearing: No Endocrine: No Hypertension: Yes Immune Disorder: No Musculoskeletal: No Neurologic: No Respiratory: No Past Surgical History Abdominal Surgery: No Cardiac Surgery: Yes Ear Surgery: No Endocrine Surgery: No Eye Surgery: Yes (cataracts) Genitourinary Surgery: No Oral Surgery: No Thoracic Surgery: No Other Surgery: Yes (hemorrhoidectomy) Social History Alcohol Use: No Tobacco Use: No Substance Use: No Allergies-Medications (Allergen,Severity, Reaction): Coded Allergies: pioglitazone (Unverified Allergy, Severe, 06/07/17) Reported Meds & Prescriptions Reported Meds & Active Scripts Active Reported Warfarin 2.5 Mg Tab 2.5 Mg PO DAILY ONE 2.5 MG TAB Q SAT, SUN, TUES, THURS Warfarin 5 Mg Tab 5 Mg PO DAILY ONE 5 MG TAB Q MON, WED, FRI Humulin R Inj (Insulin Human Regular) 1,000 Unit/10 Ml Vial 5-25 Units SQ ACHS Max dose at bedtime:( )units; sugars < 70,(0)units; sugars 150-199,(5)units; sugars 200-249,(10)units; sugars 250-299,(15)units; sugars 300-349,(20)units; sugars more than 349,(25)units. Atorvastatin (Atorvastatin Calcium) 40 Mg Tab 40 Mg PO HS Furosemide 40 Mg Tab 40 Mg PO DAILY Victoza Inj (Liraglutide Inj) 18 Mg/3 Ml Pen 1.8 Mg SQ DAILY Carvedilol 25 Mg Tab 25 Mg PO DAILY Lyrica (Pregabalin) 200 Mg Cap 200 Mg PO BID Narrative Medication Allergies and medications reviewed Review of Systems Except as stated in HPI: all other systems reviewed are Neg General / Constitutional: No: Fever Eyes: No: Visual changes HENT: No: Headaches Cardiovascular: Positive: Dyspnea on exertion, No: Chest Pain or Discomfort, Syncope Respiratory: Positive: Shortness of Breath, Orthopnea, No: Hemoptysis, Stridor , Night Sweats, Pleuritic Pain Gastrointestinal: No: Abdominal Pain Genitourinary: No: Dysuria Musculoskeletal: No: Pain Skin: No Rash Neurologic: No: Weakness Psychiatric: No: Depression Endocrine: No: Polydipsia Hematologic/Lymphatic: No: Easy Bruising Physical Exam Narrative GENERAL: Awake and alert, in acute respiratory distress. Patient is to keep neck with labored breathing SKIN: Diaphoretic, cool, slightly pale HEAD: Atraumatic. Normocephalic. EYES: Pupils equal and round. No scleral icterus. No injection or drainage. ENT: No nasal bleeding or discharge. Mucous membranes pink and moist. NECK: Trachea midline. No JVD. Supple CARDIOVASCULAR: Regular rate and rhythm. S1-S2 no murmurs rubs gallop RESPIRATORY: No accessory muscle use. Clear to auscultation. Breath sounds equal bilaterally. GASTROINTESTINAL: Abdomen soft, non-tender, nondistended. Hepatic and splenic margins not palpable. MUSCULOSKELETAL: Right lower extremity edema, right groin. Right upper extremity ecchymosis from prior IV insertion site NEUROLOGICAL: Awake and alert. No obvious cranial nerve deficits. Motor grossly within normal limits. Five out of 5 muscle strength in the arms and legs. Normal speech. PSYCHIATRIC: Appropriate mood and affect; insight and judgment normal. Data Data Last Documented VS Vital Signs Date Time Temp Pulse Resp B/P (MAP) Pulse Ox O2 Delivery O2 Flow Rate FiO2 06/08/17 01:25 99 Nasal Cannula 3.00 06/07/17 23:44 40 06/07/17 23:44 84 191/78 (115) 155/70 (98) 06/07/17 23:44 30 06/07/17 23:27 98.4 Orders Orders Electrocardiogram (06/07/17 23:36) B-Type Natriuretic Peptide (06/07/17 23:36) Ckmb (Isoenzyme) Profile (06/07/17 23:36) Complete Blood Count With Diff (06/07/17 23:36) Comprehensive Metabolic Panel (06/07/17 23:36) Magnesium (Mg) (06/07/17 23:36) Prothrombin Time / Inr (Pt) (06/07/17 23:36) Act Partial Throm Time (Ptt) (06/07/17 23:36) Troponin I (06/07/17 23:36) Chest, Single Ap (06/07/17 23:36) Ecg Monitoring (06/07/17 23:36) Bilateral Bp Monitoring (06/07/17 23:36) Iv Access Insert/Monitor (06/07/17 23:36) Oximetry (06/07/17 23:36) Oxygen Administration (06/07/17 23:36) Nitroglycerin 2% Oint (Nitroglycerin 2% (06/07/17 23:45) Sodium Chloride 0.9% Flush (Ns Flush) (06/07/17 23:45) Furosemide Inj (Lasix Inj) (06/07/17 23:45) CKMB (06/07/17 23:41) CKMB% (06/07/17 23:41) Piperacil-Tazo 3.375 Gm Premix (Zosyn 3. (06/08/17 00:45) Blood Culture (06/08/17 00:42) Troponin I (06/08/17 02:07) Vancomycin Inj (Vancomycin Inj) (06/08/17 03:45) Admit Order (Ed Use Only) (06/08/17 03:44) Labs Laboratory Tests Test 06/07/17 23:41 06/08/17 02:40 White Blood Count 12.5 TH/MM3 Red Blood Count 3.92 MIL/MM3 Hemoglobin 12.5 GM/DL Hematocrit 36.3 % Mean Corpuscular Volume 92.6 FL Mean Corpuscular Hemoglobin 32.0 PG Mean Corpuscular Hemoglobin Concent 34.5 % Red Cell Distribution Width 14.8 % Platelet Count 160 TH/MM3 Mean Platelet Volume 9.0 FL Neutrophils (%) (Auto) 83.1 % Lymphocytes (%) (Auto) 8.1 % Monocytes (%) (Auto) 7.9 % Eosinophils (%) (Auto) 0.6 % Basophils (%) (Auto) 0.3 % Neutrophils # (Auto) 10.4 TH/MM3 Lymphocytes # (Auto) 1.0 TH/MM3 Monocytes # (Auto) 1.0 TH/MM3 Eosinophils # (Auto) 0.1 TH/MM3 Basophils # (Auto) 0.0 TH/MM3 CBC Comment DIFF FINAL Differential Comment Prothrombin Time 23.8 SEC Prothromb Time International Ratio 2.4 RATIO Activated Partial Thromboplast Time 35.2 SEC Blood Urea Nitrogen 55 MG/DL Creatinine 1.94 MG/DL Random Glucose 264 MG/DL Total Protein 6.5 GM/DL Albumin 3.1 GM/DL Calcium Level 7.7 MG/DL Magnesium Level 2.1 MG/DL Alkaline Phosphatase 109 U/L Aspartate Amino Transf (AST/SGOT) 28 U/L Alanine Aminotransferase (ALT/SGPT) 40 U/L Total Bilirubin 0.6 MG/DL Sodium Level 136 MEQ/L Potassium Level 4.0 MEQ/L Chloride Level 102 MEQ/L Carbon Dioxide Level 25.5 MEQ/L Anion Gap 9 MEQ/L Estimat Glomerular Filtration Rate 33 ML/MIN Total Creatine Kinase 162 U/L Creatine Kinase MB 3.5 NG/ML Troponin I 1.62 NG/ML 1.33 NG/ML B-Type Natriuretic Peptide 50 PG/ML MDM Medical Decision Making Medical Screen Exam Complete: Yes Emergency Medical Condition: Yes Medical Record Reviewed: Yes Differential Diagnosis Acute pulmonary edema, acute myocardial infarction, pneumonia Narrative Course Patient improved dramatically with CPAP, nitroglycerin topically and Lasix IV. Chest x-ray reviewed, acute primary edema with cardiomegaly, as well as possible underlying patchy infiltrate Laboratory examinations reviewed, patient is mildly elevated white blood cell count, elevated troponin, trending down from 1.6-1.33 after 3 hours. EKG normal sinus rhythm at 90 bpm, no ischemic changes Case discussed with Dr. Brown from hospital service, admitted Diagnosis Primary Impression: Congestive heart failure Qualified Codes: I50.9 - Heart failure, unspecified Additional Impression: Pneumonia Qualified Codes: J18.9 - Pneumonia, unspecified organism Admitting Information Admitting Physician Requests: Admit Markus Greene MD Jun 08, 2017 04:28
--- NOTE | 2017-06-08 04:52 | HHI.HP ---
[facility] Admission Diagnosis Pneumonia, CHF Diagnoses: Travel History International Travel<30 Days: No Contact w/Intl Traveler <30 Da: No Traveled to Known Affected Are: No History of Present Illness 81-year-old male with a past medical history significant for CAD, CHF (no previous echo for comparison), diabetes mellitus, hyperlipidemia, neuropathy and a history of atrial fibrillation status post ablation on Monday currently anticoagulated on warfarin presents to the emergency department for evaluation of progressively worsening shortness of breath. The patient reports that the shortness of breath began around the time of his ablation and has persisted for the past 4 days. He endorses a cough that is nonproductive for the past 3 days. Denies fever/chills. Vital signs: Temperature 98.4, pulse 92, respiratory rate 28, BP 186/79, pulse ox 89% on room air. Review of Systems Denies fever or chills Denies blurry vision, otorrhea, rhinorrhea Denies sore throat, positive nonproductive cough No chest pain, palpitations Positive shortness of breath, No wheezing No abdominal pain Denies constipation/diarrhea/nausea/vomiting Denies muscle pain Denies focal weakness No rashes Past Family Social History Past Medical History CAD status post stent placement 1 Diabetes mellitus Hyperlipidemia Neuropathy History of atrial fibrillation anticoagulated on warfarin status post ablation on Monday Past Surgical History Cardiac catheterization 4 years ago Ablation 06/05/17 Hemorrhoidectomy Reported Medications Reported Meds & Active Scripts Active Reported Warfarin 2.5 Mg Tab 2.5 Mg PO DAILY ONE 2.5 MG TAB Q MON, MON, , TH Warfarin 5 Mg Tab 5 Mg PO DAILY ONE 5 MG TAB Q MON, WED, MON Humulin R Inj (Insulin Human Regular) 1,000 Unit/10 Ml Vial 5-25 Units SQ ACHS Max dose at bedtime:( )units; sugars < 70,(0)units; sugars 150-199,(5)units; sugars 200-249,(10)units; sugars 250-299,(15)units; sugars 300-349,(20)units; sugars more than 349,(25)units. Atorvastatin (Atorvastatin Calcium) 40 Mg Tab 40 Mg PO HS Furosemide 40 Mg Tab 40 Mg PO DAILY Victoza Inj (Liraglutide Inj) 18 Mg/3 Ml Pen 1.8 Mg SQ DAILY Carvedilol 25 Mg Tab 25 Mg PO DAILY Lyrica (Pregabalin) 200 Mg Cap 200 Mg PO BID Allergies: Coded Allergies: pioglitazone (Unverified Allergy, Severe, 06/07/17) Family History Patient does not know Social History Quit smoking and alcohol 35 years ago. Denies illicit drugs. Physical Exam Vital Signs Vital Signs Date Time Temp Pulse Resp B/P (MAP) Pulse Ox O2 Delivery O2 Flow Rate FiO2 06/08/17 01:25 99 Nasal Cannula 3.00 06/07/17 23:44 98 40 06/07/17 23:44 84 191/78 (115) 155/70 (98) 06/07/17 23:44 80 30 96 Nasal Cannula 5.00 06/07/17 23:40 89 30 191/78 (115) 96 06/07/17 23:27 98.4 92 28 186/79 (114) 89 Room Air Physical Exam GENERAL: Obese, male sitting up in bed in moderate distress SKIN: No rashes, ecchymoses or lesions. Cool and dry. HEAD: Atraumatic. Normocephalic. No temporal or scalp tenderness. EYES: Pupils equal round and reactive. Extraocular motions intact. No scleral icterus. No injection or drainage. ENT: Nose without bleeding, purulent drainage or septal hematoma. Throat without erythema, tonsillar hypertrophy or exudate. Uvula midline. Airway patent. NECK: Trachea midline. No JVD or lymphadenopathy. Supple, nontender, no meningeal signs. CARDIOVASCULAR: Regular rate and rhythm without murmurs, gallops, or rubs. RESPIRATORY: Clear to auscultation. Breath sounds equal bilaterally. No wheezes , rales, or rhonchi. Use of accessory muscles. GASTROINTESTINAL: Abdomen soft, non-tender, nondistended. No hepato-splenomegaly , or palpable masses. No guarding. MUSCULOSKELETAL: 2+ pitting edema to the knees NEUROLOGICAL: Awake and alert. Cranial nerves II through XII intact. Motor and sensory grossly within normal limits. Five out of 5 muscle strength in all muscle groups. Normal speech. Laboratory Laboratory Tests Test 06/07/17 23:41 06/08/17 02:40 White Blood Count 12.5 Red Blood Count 3.92 Hemoglobin 12.5 Hematocrit 36.3 Mean Corpuscular Volume 92.6 Mean Corpuscular Hemoglobin 32.0 Mean Corpuscular Hemoglobin Concent 34.5 Red Cell Distribution Width 14.8 Platelet Count 160 Mean Platelet Volume 9.0 Neutrophils (%) (Auto) 83.1 Lymphocytes (%) (Auto) 8.1 Monocytes (%) (Auto) 7.9 Eosinophils (%) (Auto) 0.6 Basophils (%) (Auto) 0.3 Neutrophils # (Auto) 10.4 Lymphocytes # (Auto) 1.0 Monocytes # (Auto) 1.0 Eosinophils # (Auto) 0.1 Basophils # (Auto) 0.0 CBC Comment DIFF FINAL Differential Comment Prothrombin Time 23.8 Prothromb Time International Ratio 2.4 Activated Partial Thromboplast Time 35.2 Blood Urea Nitrogen 55 Creatinine 1.94 Random Glucose 264 Total Protein 6.5 Albumin 3.1 Calcium Level 7.7 Magnesium Level 2.1 Alkaline Phosphatase 109 Aspartate Amino Transf (AST/SGOT) 28 Alanine Aminotransferase (ALT/SGPT) 40 Total Bilirubin 0.6 Sodium Level 136 Potassium Level 4.0 Chloride Level 102 Carbon Dioxide Level 25.5 Anion Gap 9 Estimat Glomerular Filtration Rate 33 Total Creatine Kinase 162 Creatine Kinase MB 3.5 Troponin I 1.62 1.33 B-Type Natriuretic Peptide 50 Date/Time Source Procedure Growth Status 06/08/17 01:10 Blood Peripheral Aerobic Blood Culture Pending Received 06/08/17 01:10 Blood Peripheral Anaerobic Blood Culture Pending Received Result Diagram: 06/07/17 2341 06/07/17 2341 Caprini VTE Risk Assessment Caprini VTE Risk Assessment: Mod/High Risk (score >= 2) Caprini Risk Assessment Model Point Value = 1 Point Value = 2 Point Value = 3 Point Value = 5 Age 41-60 Minor surgery BMI > 25 kg/m2 Swollen legs Varicose veins or History of unexplained or recurrent spontaneous Oral contraceptives or hormone replacement Sepsis (< 1 month) Serious lung disease, including pneumonia (< 1 month) Abnormal pulmonary function Acute myocardial infarction Congestive heart failure (< 1 month) History of inflammatory bowel disease Medical patient at bed rest Age 61-74 Arthroscopic surgery Major open surgery (> 45 min) Laparoscopic surgery (> 45 min) Malignancy Confined to bed (> 72 hours) Immobilizing plaster cast Central venous access Age >= 75 History of VTE Family history of VTE Factor V Leiden Prothrombin [id number] Lupus anticoagulant Anticardiolipin antibodies Elevated serum homocysteine Heparin-induced thrombocytopenia Other congenital or acquired thrombophilia Stroke (< 1 month) Elective arthroplasty Hip, pelvis, or leg fracture Acute spinal cord injury (< 1 month) Prophylaxis Regimen Total Risk Factor Score Risk Level Prophylaxis Regimen 0-1 Low Early ambulation 2 Moderate Order ONE of the following: *Sequential Compression Device (SCD) *Heparin 5000 units SQ BID 3-4 Higher Order ONE of the following medications: *Heparin 5000 units SQ TID *Enoxaparin/Lovenox 40 mg SQ daily (WT < 150 kg, CrCl > 30 mL/min) *Enoxaparin/Lovenox 30 mg SQ daily (WT < 150 kg, CrCl > 10-29 mL/min) *Enoxaparin/Lovenox 30 mg SQ BID (WT < 150 kg, CrCl > 30 mL/min) AND/OR *Sequential Compression Device (SCD) 5 or more Highest Order ONE of the following medications: *Heparin 5000 units SQ TID (Preferred with Epidurals) *Enoxaparin/Lovenox 40 mg SQ daily (WT < 150 kg, CrCl > 30 mL/min) *Enoxaparin/Lovenox 30 mg SQ daily (WT < 150 kg, CrCl > 10-29 mL/min) *Enoxaparin/Lovenox 30 mg SQ BID (WT < 150 kg, CrCl > 30 mL/min) AND *Sequential Compression Device (SCD) Assessment and Plan Assessment and Plan Assessment/plan: 1. Hospital-acquired pneumonia Chest x-ray significant for patchy infiltrates in the left lower lobe, personally reviewed Patient with leukocytosis and left shift, nonproductive cough, hypoxia Discharged from [facility] 06/05/17 Vancomycin/Zosyn Supplemental oxygen as needed Duo nebs 2. CHF exacerbation Chest x-ray shows pulmonary edema and right pleural effusion, personally reviewed IV Lasix 3. Acute on chronic renal insufficiency Creatinine 1.94, was 1.42 06/05/17 Monitor renal function Renally dose medications 4. Atrial fibrillation Currently on Coumadin, INR therapeutic at 2.4 Status post ablation on Monday EKG significant for NSR, HR 90, no ST segment elevations or depressions Sample Maker is Dr. Nguyen 5. Elevated troponin Initial troponin 1.62, repeat 1.33 Patient denies any chest pain, epigastric pain or nausea/vomiting Likely secondary to elevated creatinine and recent ablation Repeat if patient develops signs/symptoms ACS 6. Diabetes mellitus SSI Monitor BG 7. CAD Continue Coreg 8. Diabetic neuropathy Continue Lyrica FEN Heart healthy diet Electrolytes: monitor and replete prn Coumadin Physician Certification 2 Midnight Certification Type: Admission for Inpatient Services Order for Inpatient Services The services are ordered in accordance with Medicare regulations or non- Medicare payer requirements, as applicable. In the case of services not specified as inpatient-only, they are appropriately provided as inpatient services in accordance with the 2-midnight benchmark. Estimated LOS (days): 2 2 days is the estimated time the patient will need to remain in the hospital, assuming treatment plan goals are met and no additional complications. Post-Hospital Plan: Not yet determined Sherri Brown MD Jun 08, 2017 04:52
[2017-06-08] MEDS ORDERED: GLUCAGON 1 MG/ML VIAL OTHER PRN (05:00)
[2017-06-08] MEDS ORDERED: ACETAMINOPHEN 325 MG TAB PO PRN (05:00)
[2017-06-08] MEDS ORDERED: SODIUM CHLORIDE 0.9% FLUSH 10 ML FLUSH IV FLUSH PRN (05:00)
[2017-06-08] MEDS ORDERED: ONDANSETRON HCL 4 MG/2 ML VIAL IV PUSH PRN (05:00)
[2017-06-08] MEDS ORDERED: DEXTROSE 50% IN WATER 50 ML VIAL(D50) IV PUSH PRN (05:00)
[2017-06-08] MEDS ORDERED: Vancomycin Consult Pharmacy 1 EA OTHER SCH (05:00)
[2017-06-08] MEDS ORDERED: VANCOMYCIN INJ 1,800 MG in SODIUM CHLORID 0.9% 500 ML INJ 500 ML IV SCH (06:00)
[2017-06-08] MEDS ORDERED: VANCOMYCIN INJ 1,800 MG in SODIUM CHLORID 0.9% 500 ML INJ 500 ML IV ONE (06:00)
[2017-06-08] MEDS ORDERED: PIPERACIL-TAZO 4.5 GM PREMIX 100 ML IV SCH (07:00)
--- NOTE | 2017-06-08 08:01 | HHI.PR ---
Subjective Remarks in no acute distress. but on oxygen via N/C. has occasional cough. no fever or chest pain. Objective Vitals Vital Signs Date Time Temp Pulse Resp B/P (MAP) Pulse Ox O2 Delivery O2 Flow Rate FiO2 06/08/17 07:37 06/08/17 05:00 82 24 132/65 (87) 95 Nasal Cannula 3.00 06/08/17 04:00 82 24 133/62 (85) 94 Nasal Cannula 3.00 06/08/17 03:00 88 26 143/67 (92) 94 Nasal Cannula 3.00 06/08/17 02:00 80 27 156/65 (95) 94 Nasal Cannula 4.00 06/08/17 01:25 99 Nasal Cannula 3.00 06/08/17 01:00 80 25 161/65 (97) 99 BiPAP 40 06/08/17 00:00 80 24 157/75 (102) 99 BiPAP 40 06/07/17 23:44 98 40 06/07/17 23:44 84 191/78 (115) 155/70 (98) 06/07/17 23:44 80 30 96 Nasal Cannula 5.00 06/07/17 23:40 89 30 191/78 (115) 96 06/07/17 23:27 98.4 92 28 186/79 (114) 89 Room Air I/O 06/07/17 06/07/17 06/07/17 06/08/17 06/08/17 06/08/17 07:00 15:00 23:00 07:00 15:00 23:00 Intake Total 50 ml Output Total 1000 ml Balance -950 ml Intake IV Total 50 ml Output Urine Total 1000 ml Result Diagram: 06/07/17 2341 06/07/17 2341 Imaging Last Impressions Chest X-Ray 06/07/17 2336 Signed Impressions: Service Date/Time: Wednesday, June 07, 2017 23:46 - CONCLUSION: Interval development of fullness and indistinctness of the central bronchopulmonary markings, right pleural effusion, and patchy infiltrates in the left lower lobe. Mckinley Villegas MD Objective Remarks GENERAL: with some sob. CARDIOVASCULAR: Regular rate and regular rhythm without murmurs, gallops, or rubs. RESPIRATORY: Clear to auscultation. Breath sounds equal bilaterally. No wheezes , rales, or rhonchi. GASTROINTESTINAL: Abdomen soft, non-tender, nondistended. Normal, active bowel sounds MUSCULOSKELETAL: Extremities with bilateral pedal edema NEURO: Alert & Oriented x4 to person, place, time, situation. Moves all ext x4 Medications and IVs Inpatient Medications Acetaminophen (Tylenol) 650 mg Q4H PRN PO TEMPERATURE > 101 F; Start 06/08/17 at 05:00 Albuterol/ Ipratropium (Duoneb Neb) 1 ampule Q4HR NEB PRN INH SHORTNESS OF BREATH; Start 06/08/17 at 05:00 Atorvastatin Calcium (Lipitor) 40 mg HS PO ; Start 06/08/17 at 21:00 Carvedilol (Coreg) 25 mg DAILY PO ; Start 06/08/17 at 09:00 Dextrose (D50w (Vial) Inj) 50 ml UNSCH PRN IV PUSH HYPOGLYCEMIA-SEE COMMENTS; Start 06/08/17 at 05:00 Furosemide (Lasix Inj) 40 mg BID@09,18 IV PUSH ; Start 06/08/17 at 09:00 Glucagon (Glucagon Inj) 1 mg UNSCH PRN OTHER HYPOGLYCEMIA-SEE COMMENTS; Start 06/08/17 at 05:00 Insulin Aspart (NovoLOG SUPPLEMENTAL SCALE) 1 ACHS SLIDING SCALE SQ ; Start at 08:00 Nitroglycerin (Nitroglycerin 2% Oint) 1 inch ONCE ONCE TOP Last administered on 06/07/17at 23:58; Start 06/07/17 at 23:45; Stop 06/07/17 at 23:46; Status DC Ondansetron HCl (Zofran Inj) 4 mg Q6H PRN IV PUSH NAUSEA; Start 06/08/17 at 05: 00 Pharmacy Profile Note 0 ml @ 0 mls/hr UNSCH OTHER ; Start 06/08/17 at 05:00 Piperacillin Sod/ Tazobactam Sod 50 ml @ 100 mls/hr Q6H IV ; Start 06/08/17 at 08:00 Pregabalin (Lyrica) 200 mg BID PO ; Start 06/08/17 at 09:00 Sodium Chloride (NS Flush) 2 ml BID IV FLUSH ; Start 06/08/17 at 09:00 Vancomycin HCl 1800 mg/Sodium Chloride 518 ml @ 250 mls/hr ONCE ONCE IV Last administered on 06/08/17at 07:15; Start 06/08/17 at 06:00; Stop 06/08/17 at 08:04 Warfarin Sodium (Coumadin) 2.5 mg SuTuThSa PO ; Start 06/08/17 at 16:00 A/P Assessment and Plan 1. Hospital-acquired pneumonia Chest x-ray significant for patchy infiltrates in the left lower lobe. Patient with leukocytosis and left shift, nonproductive cough, hypoxia Discharged from [facility] on 06/05/17 Vancomycin/Zosyn Supplemental oxygen as needed Duo nebs 2. CHF exacerbation Chest x-ray shows pulmonary edema and right pleural effusion. check echo and consult cardiology. IV Lasix 3. Acute on chronic renal insufficiency Creatinine 1.94, was 1.42 06/05/17 Monitor renal function Renally dose medications 4. Atrial fibrillation Currently on Coumadin, INR therapeutic at 2.4 Status post ablation on Monday EKG significant for NSR, HR 90, no ST segment elevations or depressions Catalyst Operator is Dr. Nguyen 5. Elevated troponin Initial troponin 1.62, repeat 1.33 Patient denies any chest pain, epigastric pain or nausea/vomiting Likely secondary to elevated creatinine and recent ablation cardiology evaluation as noted above. 6. Diabetes mellitus SSI Monitor BG 7. CAD Continue Coreg 8. Diabetic neuropathy Continue Lyrica FEN Heart healthy diet Electrolytes: monitor and replete prn Coumadin Dk Smith MD Jun 08, 2017 08:01
[2017-06-08] MEDS: FUROSEMIDE 40 MG/4 ML VIAL IV PUSH SCH ×2 (08:52→17:15)
[2017-06-08] MEDS: PREGABALIN 100 MG CAP PO SCH ×2 (08:53→21:53)
[2017-06-08] MEDS: CARVEDILOL 12.5 MG TAB PO SCH (08:53)
[2017-06-08] MEDS: SODIUM CHLORIDE 0.9% FLUSH 10 ML FLUSH IV FLUSH SCH ×2 (08:53→21:53)
[2017-06-08] MEDS: PIPERACIL-TAZO 3.375 GM PREMIX 50 ML IV SCH ×3 (08:54→21:53)
[2017-06-08 09:10] LABS: BILIRUBIN, URINE NEG (NEG); BLOOD, URINE NEG (NEG); GLUCOSE,URINE NEG (NEG); KETONE, URINE NEG (NEG); MUCUS URINE FEW /lpf (OCC); NITRITE,URINE NEG (NEG); URINE COLOR LIGHT-YELLOW (YELLW/STRAW); URINE LEUKOCYTE ESTERASE NEG (NEG)
[2017-06-08] MEDS: INSULIN ASPART SUPPLEMENTAL SCALE SQ SCH ×4 (10:14→21:00)
[2017-06-08 12:18] LABS: INTERNATIONAL NORMALIZED RATIO 2.3 RATIO; PROTHROMBIN TIME - PATIENT 23.4 SEC (9.8-11.6)
[2017-06-08] MEDS ORDERED: WARFARIN SOD 2.5 MG TAB PO SCH ×2 (16:00)
[2017-06-08] MEDS ORDERED: VANCOMYCIN INJ 1,000 MG in SODIUM CHLOR 0.9% 250 ML INJ 250 ML IV ONE (16:00)
--- NOTE | 2017-06-08 18:06 | ECHRPT ---
Indication: HEART FAILURE CONCLUSIONS Normal left ventricular size. Wall thickness is normal. The left ventricular systolic function is mildly reduced with an estimated ejection fraction in the range of 45- 50%. The left atrial size is upper limits of normal. There is a trivial pericardial effusion present. BP: 140 / 69 HR: 90 Rhythm: Technical Quality:Fair FINDINGS LEFT VENTRICLE Normal left ventricular size. Wall thickness is normal. The left ventricular systolic function is mildly reduced with an estimated ejection fraction in the range of 45- 50%. RIGHT VENTRICLE Normal right ventricular size and systolic function. LEFT ATRIUM The left atrial size is upper limits of normal. RIGHT ATRIUM The right atrial size is normal. ATRIAL SEPTUM Normal atrial septal thickness without atrial level shunting by limited color doppler interrogation. AORTA The aortic root and proximal ascending aorta are normal in size on limited imaging. MITRAL VALVE Structurally normal mitral valve. No mitral valve stenosis or regurgitation. AORTIC VALVE Trileaflet aortic valve. No aortic valve stenosis or regurgitation. TRICUSPID VALVE Structurally normal tricuspid valve. No tricuspid valve stenosis or regurgitation. PULMONARY VALVE The pulmonary valve is not well visualized. VESSELS The inferior vena cava is normal in size. PERICARDIUM There is a trivial pericardial effusion present. Grady Olmos MD (Electronically Signed) Final Date:08 June 2017 18:05
[2017-06-08] MEDS ORDERED: BISACODYL 10 MG SUPP RECTAL PRN (21:30)
[2017-06-08] MEDS ORDERED: SENNOSIDES 8.6 MG TAB PO PRN (21:30)
[2017-06-08] MEDS: DOCUSATE SODIUM 50 MG/SENNA 8.6 MG TAB PO SCH (21:53)
[2017-06-08] MEDS: ATORVASTATIN 40 MG TAB PO SCH (21:53)
--- NOTE | 2017-06-08 23:48 | EKG ---
Date Performed: 06/07/2017 Time Performed: 23:36:41 PTAGE: 81 years EKG: Sinus rhythm WITH FIRST DEGREE AV BLOCK LOW QRS VOLTAGE IN EXTREMITY LEADS ABNORMAL ECG PREVIOUS TRACING : 06/05/2017 20.47 Since the prior tracing, there has been no significant castillo DOCTOR: Michael Wick Interpretating Date/Time 06/08/2017 23:48:07
[2017-06-09] MEDS ORDERED: diphenhydrAMINE HCL 25 MG CAP PO ONE (00:30)
[2017-06-09] MEDS: PIPERACIL-TAZO 3.375 GM PREMIX 50 ML IV SCH ×4 (01:06→21:26)
[2017-06-09 05:10] LABS: AUTOMATED NEUTROPHIL # 7.5 TH/MM3 (1.8-7.7); BASOPHIL % 0.3 % (0.0-2.0); EOSINOPHIL # 0.1 TH/MM3 (0-0.4); EOSINOPHIL % 1.2 % (0.0-4.0); HEMATOCRIT 35.8 % (39.0-51.0); HEMOGLOBIN 12.2 GM/DL (13.0-17.0); LYMPH % 11.9 % (9.0-44.0); LYMPHOCYTE # 1.1 TH/MM3 (1.0-4.8); MEAN CELL VOLUME 92.2 FL (80.0-100.0); MEAN CORPUSCULAR HEMOGLOBIN 31.4 PG (27.0-34.0); MEAN CORPUSCULAR HGB CONC 34.1 % (32.0-36.0); MEAN PLATELET VOLUME 8.8 FL (7.0-11.0); MONO % 8.5 % (0.0-8.0); MONOCYTE # 0.8 TH/MM3 (0-0.9); NEUT % 78.1 % (16.0-70.0); PLATELET COUNT 150 TH/MM3 (150-450); RED BLOOD COUNT 3.88 MIL/MM3 (4.50-5.90); RED CELL DISTRIBUTION WIDTH 14.4 % (11.6-17.2); WHITE BLOOD COUNT 9.6 TH/MM3 (4.0-11.0)
[2017-06-09 05:36] LABS: BICARBONATE 27.9 MEQ/L (21.0-32.0); CALCIUM 8.3 MG/DL (8.5-10.1); CREATININE 1.81 MG/DL (0.60-1.30)
[2017-06-09 05:37] LABS: RANDOM VANCOMYCIN 11.5 COMMENT
[2017-06-09 07:39] VITALS: BP 120/72; PULSE 110
[2017-06-09] MEDS: PREGABALIN 100 MG CAP PO SCH ×2 (07:44→21:25)
[2017-06-09] MEDS: INSULIN ASPART SUPPLEMENTAL SCALE SQ SCH ×4 (07:44→21:27)
[2017-06-09] MEDS: FUROSEMIDE 40 MG/4 ML VIAL IV PUSH SCH ×2 (07:45→17:10)
[2017-06-09] MEDS: DOCUSATE SODIUM 50 MG/SENNA 8.6 MG TAB PO SCH ×2 (07:45→21:00)
[2017-06-09] MEDS: SODIUM CHLORIDE 0.9% FLUSH 10 ML FLUSH IV FLUSH SCH ×2 (07:46→21:26)
[2017-06-09] MEDS: CARVEDILOL 12.5 MG TAB PO SCH (07:50)
[2017-06-09 08:00] VITALS: BP 137/85; PULSE 103; RESP 18; TEMP 97.1; O2SAT 91
[2017-06-09 08:31] LABS: INTERNATIONAL NORMALIZED RATIO 1.9 RATIO
[2017-06-09 11:49] VITALS: O2SAT 97
[2017-06-09] MEDS ORDERED: VANCOMYCIN INJ 1,750 MG in SODIUM CHLORID 0.9% 500 ML INJ 500 ML IV ONE (12:00)
--- NOTE | 2017-06-09 13:05 | HHI.PR ---
Subjective Remarks in no acute distress. denies chest pain. sob has improved to some extent. afebrile. family at the bedside. Objective Vitals Vital Signs Date Time Temp Pulse Resp B/P (MAP) Pulse Ox O2 Delivery O2 Flow Rate FiO2 06/09/17 08:00 97.1 103 18 137/85 (102) 91 06/09/17 07:39 110 06/09/17 07:39 120/72 (88) 06/08/17 21:16 94 Nasal Cannula 3.00 06/08/17 20:00 97.0 102 16 119/60 (79) 97 06/08/17 19:21 Nasal Cannula 3.00 06/08/17 17:59 89 06/08/17 16:00 97.0 90 18 105/81 (89) 97 I/O 06/08/17 06/08/17 06/08/17 06/09/17 06/09/17 06/09/17 07:00 15:00 23:00 07:00 15:00 23:00 Intake Total 50 ml 1288 ml 50 ml 50 ml Output Total 1000 ml 2650 ml 250 ml Balance -950 ml -1362 ml -200 ml 50 ml Intake Oral 720 ml IV Total 50 ml 568 ml 50 ml 50 ml Output Urine Total 1000 ml 2650 ml 250 ml # Bowel Movements 0 Result Diagram: 06/09/17 0455 06/09/17 0455 Imaging Last Impressions Chest X-Ray 06/07/17 2336 Signed Impressions: Service Date/Time: Wednesday, June 07, 2017 23:46 - CONCLUSION: Interval development of fullness and indistinctness of the central bronchopulmonary markings, right pleural effusion, and patchy infiltrates in the left lower lobe. Mckinley Villegas MD Objective Remarks GENERAL: with some sob but looks better today. CARDIOVASCULAR: Regular rate and regular rhythm without murmurs, gallops, or rubs. RESPIRATORY: Clear to auscultation. Breath sounds equal bilaterally. No wheezes , rales, or rhonchi. GASTROINTESTINAL: Abdomen soft, non-tender, nondistended. Normal, active bowel sounds MUSCULOSKELETAL: Extremities with bilateral pedal edema NEURO: Alert & Oriented x4 to person, place, time, situation. Moves all ext x4 Medications and IVs Inpatient Medications Acetaminophen (Tylenol) 650 mg Q4H PRN PO TEMPERATURE > 101 F; Start 06/08/17 at 05:00 Albuterol/ Ipratropium (Duoneb Neb) 1 ampule Q4HR NEB PRN INH SHORTNESS OF BREATH; Start 06/08/17 at 05:00 Atorvastatin Calcium (Lipitor) 40 mg HS PO Last administered on 06/08/17at 21:53 ; Start 06/08/17 at 21:00 Bisacodyl (Dulcolax Supp) 10 mg DAILY PRN RECTAL SEVERE CONSITIPATION; Start at 21:30 Carvedilol (Coreg) 25 mg DAILY PO Last administered on 06/09/17at 07:50; Start 06/08/17 at 09:00 Dextrose (D50w (Vial) Inj) 50 ml UNSCH PRN IV PUSH HYPOGLYCEMIA-SEE COMMENTS; Start 06/08/17 at 05:00 Diphenhydramine HCl (Benadryl) 25 mg ONCE ONCE PO Last administered on at 00:56; Start 06/09/17 at 00:30; Stop 06/09/17 at 00:41; Status DC Furosemide (Lasix Inj) 40 mg BID@09,18 IV PUSH Last administered on 06/09/17at 07:45; Start 06/08/17 at 09:00 Glucagon (Glucagon Inj) 1 mg UNSCH PRN OTHER HYPOGLYCEMIA-SEE COMMENTS; Start 06/08/17 at 05:00 Insulin Aspart (NovoLOG SUPPLEMENTAL SCALE) 1 ACHS SLIDING SCALE SQ Last administered on 06/09/17at 12:00; Start 06/08/17 at 08:00 Nitroglycerin (Nitroglycerin 2% Oint) 1 inch ONCE ONCE TOP Last administered on 06/07/17at 23:58; Start 06/07/17 at 23:45; Stop 06/07/17 at 23:46; Status DC Ondansetron HCl (Zofran Inj) 4 mg Q6H PRN IV PUSH NAUSEA; Start 06/08/17 at 05: 00 Pharmacy Profile Note 0 ml @ 0 mls/hr UNSCH OTHER ; Start 06/08/17 at 08:00 Piperacillin Sod/ Tazobactam Sod 50 ml @ 100 mls/hr Q6H IV Last administered on 06/09/17at 07:43; Start 06/08/17 at 08:00 Pregabalin (Lyrica) 200 mg BID PO Last administered on 06/09/17at 07:44; Start 06/08/17 at 09:00 Senna/Docusate Sodium (Tayler-Colace) 1 tab BID PO Last administered on at 07:45; Start 06/08/17 at 21:30 Sennosides (Senokot) 17.2 mg Q12H PRN PO Moderate constipation Last administered on 06/08/17at 21:53; Start 06/08/17 at 21:30 Sodium Chloride (NS Flush) 2 ml BID IV FLUSH Last administered on 06/09/17at 07: 46; Start 06/08/17 at 09:00 Vancomycin HCl 1750 mg/Sodium Chloride 517.5 ml @ 250 mls/hr ONCE ONCE IV Last administered on 06/09/17at 12:01; Start 06/09/17 at 12:00; Stop 06/09/17 at 14:04 Vancomycin HCl 1800 mg/Sodium Chloride 518 ml @ 250 mls/hr ONCE ONCE IV Last administered on 06/08/17at 07:15; Start 06/08/17 at 06:00; Stop 06/08/17 at 08:04 ; Status DC Warfarin Sodium (Coumadin) 2.5 mg SuTuThSa PO Last administered on 06/08/17at 17 :13; Start 06/08/17 at 16:00 A/P Assessment and Plan 1. Hospital-acquired pneumonia Chest x-ray significant for patchy infiltrates in the left lower lobe. Patient with leukocytosis and left shift, nonproductive cough, hypoxia Discharged from [facility] on 06/05/17 Vancomycin/Zosyn will deescalate the antibiotic regimen soon if stable and cultures remain negative. Supplemental oxygen as needed Duo nebs 2. acute on chronic systolic CHF Chest x-ray shows pulmonary edema and right pleural effusion. continue IV lasix and coreg will consider adding NICOLE-inhibitor if renal function remains stable. cardiology consulted. might need walk test before discharge. 3. Acute on chronic renal insufficiency Creatinine 1.94, was 1.42 06/05/17 Monitor renal function Renally dose medications 4. Atrial fibrillation Currently on Coumadin Status post recent ablation Popcorn Attendant is Dr. Nguyen 5. Elevated troponin Initial troponin 1.62, repeat 1.33 Patient denies any chest pain, epigastric pain or nausea/vomiting Likely secondary to elevated creatinine and recent ablation cardiology evaluation as noted above. 6. Diabetes mellitus SSI Monitor BG 7. CAD Continue Coreg 8. Diabetic neuropathy Continue Lyrica FEN Heart healthy diet Electrolytes: monitor and replete prn Coumadin Discharge Planning dc home within the next 48 hrs if continues to improve- awaiting cardiology evaluation. case management for [facility]. Dk Smith MD Jun 09, 2017 13:05
--- NOTE | 2017-06-09 13:05 | HHI.FF ---
Face to Face Verification Diagnosis: (1) Pneumonia (2) Congestive heart failure Physical Therapy Order: Evaluate and Treat Home Health Nursing Order: Medical education Signs/symptoms of disease process CHF education Medication education-adverse effect Nursing assessment with vital signs I have seen patient Jeanmarie Puente on 06/09/17. My clinical findings support the need for the requested home health care services because: Ltd mobility - disease progression I certify that my clinical findings support that this patient is homebound because: Poor cardiac reserve Dk Smith MD Jun 09, 2017 13:05
[2017-06-09 16:00] VITALS: BP 141/80; PULSE 101; RESP 20; TEMP 96.2; O2SAT 96
[2017-06-09] MEDS ORDERED: WARFARIN SOD 5 MG TAB PO SCH (16:00)
[2017-06-09 17:52] VITALS: O2SAT 96
[2017-06-09 20:00] VITALS: BP 140/78; PULSE 87; RESP 17; TEMP 96; O2SAT 96
[2017-06-09] MEDS ORDERED: diphenhydrAMINE HCL 25 MG CAP PO PRN (21:00)
[2017-06-09] MEDS: ATORVASTATIN 40 MG TAB PO SCH (21:25)
[2017-06-10] VITALS (18 sets, daily range): BP systolic 118–176; BP diastolic 50–91; PULSE 88–150; RESP 16–30; TEMP 96.4–99.5; O2SAT 93–97
[2017-06-10] MEDS: PIPERACIL-TAZO 3.375 GM PREMIX 50 ML IV SCH ×4 (02:46→21:41)
[2017-06-10] MEDS: RESP: ALBUTEROL 2.5 MG/IPRATROPIUM 0.5 MG NEB (PRN) INH ×2 (03:16→13:11)
[2017-06-10] MEDS: FUROSEMIDE 40 MG/4 ML VIAL IV PUSH SCH ×2 (08:20→17:08)
[2017-06-10] MEDS: SODIUM CHLORIDE 0.9% FLUSH 10 ML FLUSH IV FLUSH SCH ×2 (08:21→21:42)
[2017-06-10] MEDS: PREGABALIN 100 MG CAP PO SCH ×2 (08:21→21:42)
[2017-06-10] MEDS: CARVEDILOL 12.5 MG TAB PO SCH ×2 (08:21→21:41)
[2017-06-10 08:32] LABS: INTERNATIONAL NORMALIZED RATIO 1.9 RATIO; PROTHROMBIN TIME - PATIENT 19.1 SEC (9.8-11.6)
[2017-06-10] MEDS: INSULIN ASPART SUPPLEMENTAL SCALE SQ SCH ×4 (08:37→21:00)
[2017-06-10] MEDS: DOCUSATE SODIUM 50 MG/SENNA 8.6 MG TAB PO SCH ×2 (09:00→21:00)
--- NOTE | 2017-06-10 09:06 | MB ---
cc: DANI ARTEAGA M.D. DATE OF CONSULTATION: 06/09/2017. REASON FOR CONSULTATION: HISTORY OF PRESENT ILLNESS: Mr. Puente is an 81-year-old gentleman with shortness of breath, COPD, congestive heart failure, atrial fibrillation, recent ablation readmitted due to shortness of breath. There was edema of extremity. Lasix given. The condition continued to improve. I was consulted for evaluation and management. The chart was reviewed. The patient was evaluated. ALLERGIES: Glitazone p.o. SOCIAL HISTORY: Negative for smoking and drinking. FAMILY HISTORY: Noncontributory to his current medical condition. MEDICATIONS: He is on: 1. Piperacillin / tazobactam. 2. Vancomycin. 3. Coumadin. 4. Coreg 25 milligrams twice a day. 5. Lasix 40 milligrams IV twice a day. 6. Lyrica. 7. Senokot. 8. Coumadin. REVIEW OF SYSTEMS: He refers feeling better but continues with shortness of breath. PHYSICAL EXAMINATION: GENERAL: Alert, fully oriented. VITAL SIGNS: Blood pressure 140/80, pulse 101, respiratory rate 18. LUNGS: Ventilated. CARDIOVASCULAR: S1-S2. Irregular. Tachycardic. ABDOMEN: Obese, no mass. No bruits. EXTREMITIES: Edema +1. EKGs: Electrocardiogram shows atrial fibrillation with fast ventricular response. LABS: INR is 1.9 today. Potassium is 3.6, creatinine is 1.81. Troponin is high at 1.33. Hemoglobin 12.2. ASSESSMENT AND RECOMMENDATIONS: Mr. Puente has a recent ablation. Troponin high because of ablation of left atrial fibrillation. He has shortness of breath. He may have fluid overload. He received Lasix. That is improving. He is in atrial fibrillation, atrial tachycardia. This may be acute phase. I am going to add amiodarone 400 milligrams twice a day for seven days and then 200 milligrams a day. Also, the patient is on Coumadin. INR today is 1.9. He is taking 7.5 milligrams a day. I am going to cut it to 5 milligrams a day. The patient is going to need daily INR until stabilized. When the patient is stable, he can be discharged home. I discussed the case with him and his son. Follow up this weekend by Dr. Wick. MD DEZ Varela /6:29 PM /8:50 AM
[2017-06-10 09:18] LABS: BICARBONATE 29.9 MEQ/L (21.0-32.0); CALCIUM 8.7 MG/DL (8.5-10.1); CREATININE 1.58 MG/DL (0.60-1.30)
--- NOTE | 2017-06-10 09:58 | HHI.PR ---
Subjective Remarks 81-year-old male with a past medical history significant for CAD, CHF (no previous echo for comparison), diabetes mellitus, hyperlipidemia, neuropathy and a history of atrial fibrillation status post ablation on Monday currently anticoagulated on warfarin presents to the emergency department for evaluation of progressively worsening shortness of breath. The patient reports that the shortness of breath began around the time of his ablation and has persisted for the past 4 days. He endorses a cough that is nonproductive for the past 3 days. Denies fever/chills. Vital signs: Temperature 98.4, pulse 92, respiratory rate 28, BP 186/79, pulse ox 89% on room air. 06-10 states he is breathing better has been seen by cardiology started on amiodarone dw RN AND PT AND FAMILY PT AND OT EVAL AND TREAT DC PLANNING NEXT 24-48 HOURS MUCINEX INCENTIVE SPIROMETRY Objective Vitals Vital Signs Date Time Temp Pulse Resp B/P (MAP) Pulse Ox O2 Delivery O2 Flow Rate FiO2 06/10/17 09:21 18 06/10/17 08:00 98.1 101 17 118/81 (93) 93 06/10/17 03:46 96.9 109 17 127/85 (99) 95 06/10/17 00:00 96.4 95 16 157/79 (105) 97 06/09/17 20:00 96.0 87 17 140/78 (98) 96 06/09/17 18:53 Room Air 06/09/17 17:52 96 21 06/09/17 16:00 96.2 101 20 141/80 (100) 96 06/09/17 11:49 97 I/O 06/09/17 06/09/17 06/09/17 06/10/17 06/10/17 06/10/17 07:00 15:00 23:00 07:00 15:00 23:00 Intake Total 50 ml 200 ml 800 ml 410 ml Output Total 500 ml 600 ml 650 ml Balance 50 ml -300 ml 200 ml -240 ml Intake Oral 200 ml 750 ml 360 ml IV Total 50 ml 50 ml 50 ml Output Urine Total 500 ml 600 ml 650 ml # Bowel Movements 1 Result Diagram: 06/09/17 0455 06/10/17 0713 Other Results Laboratory Tests Test 06/07/17 23:41 06/08/17 02:40 06/08/17 08:30 06/08/17 12:02 White Blood Count 12.5 TH/MM3 Red Blood Count 3.92 MIL/MM3 Hemoglobin 12.5 GM/DL Hematocrit 36.3 % Mean Corpuscular Volume 92.6 FL Mean Corpuscular Hemoglobin 32.0 PG Mean Corpuscular Hemoglobin Concent 34.5 % Red Cell Distribution Width 14.8 % Platelet Count 160 TH/MM3 Mean Platelet Volume 9.0 FL Neutrophils (%) (Auto) 83.1 % Lymphocytes (%) (Auto) 8.1 % Monocytes (%) (Auto) 7.9 % Eosinophils (%) (Auto) 0.6 % Basophils (%) (Auto) 0.3 % Neutrophils # (Auto) 10.4 TH/MM3 Lymphocytes # (Auto) 1.0 TH/MM3 Monocytes # (Auto) 1.0 TH/MM3 Eosinophils # (Auto) 0.1 TH/MM3 Basophils # (Auto) 0.0 TH/MM3 CBC Comment DIFF FINAL Differential Comment Prothrombin Time 23.8 SEC 23.4 SEC Prothromb Time International Ratio 2.4 RATIO 2.3 RATIO Activated Partial Thromboplast Time 35.2 SEC Blood Urea Nitrogen 55 MG/DL Creatinine 1.94 MG/DL Random Glucose 264 MG/DL Total Protein 6.5 GM/DL Albumin 3.1 GM/DL Calcium Level 7.7 MG/DL Magnesium Level 2.1 MG/DL Alkaline Phosphatase 109 U/L Aspartate Amino Transf (AST/SGOT) 28 U/L Alanine Aminotransferase (ALT/SGPT) 40 U/L Total Bilirubin 0.6 MG/DL Sodium Level 136 MEQ/L Potassium Level 4.0 MEQ/L Chloride Level 102 MEQ/L Carbon Dioxide Level 25.5 MEQ/L Anion Gap 9 MEQ/L Estimat Glomerular Filtration Rate 33 ML/MIN Total Creatine Kinase 162 U/L Creatine Kinase MB 3.5 NG/ML Troponin I 1.62 NG/ML 1.33 NG/ML B-Type Natriuretic Peptide 50 PG/ML Urine Color LIGHT-YELLOW Urine Turbidity CLEAR Urine pH 5.0 Urine Specific Lena 1.011 Urine Protein NEG mg/dL Urine Glucose (UA) NEG mg/dL Urine Ketones NEG mg/dL Urine Occult Blood NEG Urine Nitrite NEG Urine Bilirubin NEG Urine Urobilinogen LESS THAN 2.0 MG/DL Urine Leukocyte Esterase NEG Urine RBC 1 /hpf Urine WBC LESS THAN 1 /hpf Urine Mucus FEW /lpf Microscopic Urinalysis Comment CULT NOT INDICATED Test 06/09/17 04:55 06/09/17 07:20 06/10/17 07:13 White Blood Count 9.6 TH/MM3 Red Blood Count 3.88 MIL/MM3 Hemoglobin 12.2 GM/DL Hematocrit 35.8 % Mean Corpuscular Volume 92.2 FL Mean Corpuscular Hemoglobin 31.4 PG Mean Corpuscular Hemoglobin Concent 34.1 % Red Cell Distribution Width 14.4 % Platelet Count 150 TH/MM3 Mean Platelet Volume 8.8 FL Neutrophils (%) (Auto) 78.1 % Lymphocytes (%) (Auto) 11.9 % Monocytes (%) (Auto) 8.5 % Eosinophils (%) (Auto) 1.2 % Basophils (%) (Auto) 0.3 % Neutrophils # (Auto) 7.5 TH/MM3 Lymphocytes # (Auto) 1.1 TH/MM3 Monocytes # (Auto) 0.8 TH/MM3 Eosinophils # (Auto) 0.1 TH/MM3 Basophils # (Auto) 0.0 TH/MM3 CBC Comment DIFF FINAL Differential Comment Blood Urea Nitrogen 46 MG/DL 32 MG/DL Creatinine 1.81 MG/DL 1.58 MG/DL Random Glucose 196 MG/DL 198 MG/DL Calcium Level 8.3 MG/DL 8.7 MG/DL Sodium Level 140 MEQ/L 139 MEQ/L Potassium Level 3.6 MEQ/L 3.4 MEQ/L Chloride Level 103 MEQ/L 100 MEQ/L Carbon Dioxide Level 27.9 MEQ/L 29.9 MEQ/L Anion Gap 9 MEQ/L 9 MEQ/L Estimat Glomerular Filtration Rate 36 ML/MIN 42 ML/MIN Random Vancomycin Level 11.5 COMMENT Prothrombin Time 19.0 SEC 19.1 SEC Prothromb Time International Ratio 1.9 RATIO 1.9 RATIO Imaging Last Impressions Chest X-Ray 06/07/17 9316 Signed Impressions: Service Date/Time: Wednesday, June 07, 2017 23:46 - CONCLUSION: Interval development of fullness and indistinctness of the central bronchopulmonary markings, right pleural effusion, and patchy infiltrates in the left lower lobe. Mckinley Villegas MD Objective Remarks GENERAL: Awake alert oriented talkative and cooperative SKIN: Warm and dry. HEAD: Atraumatic. Normocephalic. EYES: Pupils equal and round. No scleral icterus. No injection or drainage. Extraocular muscles intact ENT: No nasal bleeding or discharge. Mucous membranes pink and moist. Tongue is midline NECK: Trachea midline. No JVD. Supple CARDIOVASCULAR: Regular rate and rhythm. S1 and S2 no S3 or S4 no heave or thrill or rub or gallop RESPIRATORY: No accessory muscle use. Clear to auscultation. Breath sounds equal bilaterally. Decreased breath sounds bilaterally GASTROINTESTINAL: Abdomen soft, non-tender, nondistended. Hepatic and splenic margins not palpable. MUSCULOSKELETAL: Extremities without clubbing, cyanosis, or edema. No obvious deformities. NEUROLOGICAL: Awake and alert. No obvious cranial nerve deficits. Motor grossly within normal limits. Five out of 5 muscle strength in the arms and legs. Normal speech. PSYCHIATRIC: Appropriate mood and affect; insight and judgment normal. Medications and IVs Current Medications Nitroglycerin (Nitroglycerin 2% Oint) 1 inch ONCE ONCE TOP Last administered on 06/07/17at 23:58; Start 06/07/17 at 23:45; Stop 06/07/17 at 23:46; Status DC Sodium Chloride (NS Flush) 2 ml UNSCH PRN IVF FLUSH AFTER USING IV ACCESS; Start 06/07/17 at 23:45; Stop 06/08/17 at 05:22; Status DC Furosemide (Lasix Inj) 40 mg ONCE ONCE IV PUSH Last administered on 06/07/17at 23:58; Start 06/07/17 at 23:45; Stop 06/07/17 at 23:46; Status DC Piperacillin Sod/ Tazobactam Sod 50 ml @ 100 mls/hr ONCE ONCE IV Last administered on 06/08/17at 01:25; Start 06/08/17 at 00:45; Stop 06/08/17 at 01:14 ; Status DC Vancomycin/Sodium Chloride 200 ml @ 200 mls/hr ONCE ONCE IV ; Start 06/08/17 at 03:45; Stop 06/08/17 at 04:44; Status Cancel Atorvastatin Calcium (Lipitor) 40 mg HS PO Last administered on 06/09/17at 21:25 ; Start 06/08/17 at 21:00 Carvedilol (Coreg) 25 mg DAILY PO Last administered on 06/10/17at 08:21; Start 06/08/17 at 09:00 Pregabalin (Lyrica) 200 mg BID PO Last administered on 06/10/17at 08:21; Start 06/08/17 at 09:00 Warfarin Sodium (Coumadin) 2.5 mg DAILY@1600 PO ; Start 06/08/17 at 16:00; Stop 06/08/17 at 16:00; Status DC Warfarin Sodium (Coumadin) 5 mg MoWeFr PO Last administered on 06/09/17at 15:11 ; Start 06/09/17 at 16:00 Sodium Chloride (NS Flush) 2 ml UNSCH PRN IV FLUSH FLUSH AFTER USING IV ACCESS ; Start 06/08/17 at 05:00 Sodium Chloride (NS Flush) 2 ml BID IV FLUSH Last administered on 06/10/17at 08: 21; Start 06/08/17 at 09:00 Piperacillin Sod/ Tazobactam Sod 100 ml @ 200 mls/hr Q6H IV ; Start 06/08/17 at 07:00; Status UNV Vancomycin HCl 1000 mg/Sodium Chloride 250 ml @ 250 mls/hr ONCE ONCE IV ; Start 06/08/17 at 16:00; Stop 06/08/17 at 16:59; Status UNV Pharmacy Profile Note 0 ml @ 0 mls/hr UNSCH OTHER ; Start 06/08/17 at 05:00 Albuterol/ Ipratropium (Duoneb Neb) 1 ampule Q4HR NEB PRN INH SHORTNESS OF BREATH Last administered on 06/10/17at 03:16; Start 06/08/17 at 05:00 Acetaminophen (Tylenol) 650 mg Q4H PRN PO TEMPERATURE > 101 F; Start 06/08/17 at 05:00 Ondansetron HCl (Zofran Inj) 4 mg Q6H PRN IV PUSH NAUSEA; Start 06/08/17 at 05: 00 Furosemide (Lasix Inj) 40 mg BID@09,18 IV PUSH Last administered on 06/10/17at 08:20; Start 06/08/17 at 09:00 Dextrose (D50w (Vial) Inj) 50 ml UNSCH PRN IV PUSH HYPOGLYCEMIA-SEE COMMENTS; Start 06/08/17 at 05:00 Glucagon (Glucagon Inj) 1 mg UNSCH PRN OTHER HYPOGLYCEMIA-SEE COMMENTS; Start 06/08/17 at 05:00 Insulin Aspart (NovoLOG SUPPLEMENTAL SCALE) 1 ACHS SLIDING SCALE SQ Last administered on 06/10/17at 08:37; Start 06/08/17 at 08:00 Piperacillin Sod/ Tazobactam Sod 50 ml @ 100 mls/hr Q6H IV Last administered on 06/10/17at 08:21; Start 06/08/17 at 08:00 Warfarin Sodium (Coumadin) 2.5 mg SuTuThSa PO Last administered on 06/08/17at 17 :13; Start 06/08/17 at 16:00 Vancomycin HCl 1800 mg/Sodium Chloride 518 ml @ 250 mls/hr Q12H IV ; Start at 06:00; Stop 06/08/17 at 06:00; Status DC Vancomycin HCl 1800 mg/Sodium Chloride 518 ml @ 250 mls/hr ONCE ONCE IV Last administered on 06/08/17at 07:15; Start 06/08/17 at 06:00; Stop 06/08/17 at 08:04 ; Status DC Pharmacy Profile Note 0 ml @ 0 mls/hr UNSCH OTHER ; Start 06/08/17 at 08:00 Senna/Docusate Sodium (Tayler-Colace) 1 tab BID PO Last administered on at 07:45; Start 06/08/17 at 21:30 Sennosides (Senokot) 17.2 mg Q12H PRN PO Moderate constipation Last administered on 06/08/17at 21:53; Start 06/08/17 at 21:30 Bisacodyl (Dulcolax Supp) 10 mg DAILY PRN RECTAL SEVERE CONSITIPATION; Start at 21:30 Diphenhydramine HCl (Benadryl) 25 mg ONCE ONCE PO Last administered on at 00:56; Start 06/09/17 at 00:30; Stop 06/09/17 at 00:41; Status DC Vancomycin HCl 1750 mg/Sodium Chloride 517.5 ml @ 250 mls/hr ONCE ONCE IV Last administered on 06/09/17at 12:01; Start 06/09/17 at 12:00; Stop 06/09/17 at 14:04; Status DC Diphenhydramine HCl (Benadryl) 25 mg HS PRN PO INSOMNIA Last administered on at 23:33; Start 06/09/17 at 21:00 A/P Assessment and Plan Assessment and Plan 1. Hospital-acquired pneumonia Chest x-ray significant for patchy infiltrates in the left lower lobe. Patient with leukocytosis and left shift, nonproductive cough, hypoxia Discharged from [facility] 06/05/17 Vancomycin/Zosyn will deescalate the antibiotic regimen soon if stable and cultures remain negative. Supplemental oxygen as needed Duo nebs ADD MUCINEX 2. acute on chronic systolic CHF Chest x-ray shows pulmonary edema and right pleural effusion. continue IV lasix and coreg will consider adding NICOLE-inhibitor if renal function remains stable. cardiology consulted. might need walk test before discharge. 3. Acute on chronic renal insufficiency Creatinine 1.94, was 1.42 06/05/17 Monitor renal function Renally dose medications 4. Atrial fibrillation Currently on Coumadin Status post recent ablation Comprehensive Advisor is Dr. Nguyen AMIODARONE STARTED PER CARDIO 400MG BID COUMADIN 5MG DAILY AM INR 5. Elevated troponin Initial troponin 1.62, repeat 1.33 Patient denies any chest pain, epigastric pain or nausea/vomiting Likely secondary to elevated creatinine and recent ablation cardiology evaluation as noted above. 6. Diabetes mellitus SSI Monitor BG 7. CAD Continue Coreg 8. Diabetic neuropathy Continue Lyrica FEN Heart healthy diet Electrolytes: monitor and replete prn Coumadin Discharge Planning NEXT 24-48 HOURS Simón Jurado DO Jun 10, 2017 09:58
[2017-06-10] MEDS: guaiFENesin E.R. 600 MG TAB PO SCH ×2 (11:46→21:42)
[2017-06-10] MEDS: POTASSIUM CHLORIDE 20 MEQ CONTROLLED RELEASE TAB PO SCH ×2 (11:46→21:42)
[2017-06-10] MEDS: AMIODARONE 200 MG TAB PO SCH ×2 (11:47→21:42)
[2017-06-10] MEDS ORDERED: METOPROLOL TARTRATE 50 MG TAB PO ONE (14:45)
[2017-06-10] MEDS ORDERED: DILTIAZEM HCL 25 MG/5 ML VIAL IV PUSH ONE (15:15)
[2017-06-10] MEDS ORDERED: RESP: IPRATROPIUM 0.5 MG/2.5 ML NEB INH PRN (15:15)
[2017-06-10] MEDS: RESP: ALBUTEROL 2.5 MG/IPRATROPIUM 0.5 MG NEB (SCH) INH ×2 (16:00→21:04)
[2017-06-10] MEDS ORDERED: WARFARIN SOD 5 MG TAB PO SCH (16:00)
[2017-06-10] MEDS: DILTIAZEM INJ 125 MG in SODIUM CHLORIDE 0.9% INJ 100 ML IV PRN (16:01)
--- NOTE | 2017-06-10 17:20 | PD.CARD.PN ---
Subjective Subjective Remarks Follow up for Dr. Washburn Patient was seen earlier in the day and doing fairly well, although most likely have some pleural type chest pain I was called after leaving the floor, patient went into Afib with RVR and was symptomatic with SOB Once his heart rate was brought down to the 100-110 range he felt better Objective Medications Current Medications Medications (Trade) Dose Ordered Sig/Chato Route Start Time Stop Time Status Last Admin (Lipitor) 40 mg HS PO 06/08/17 21:00 06/09/17 21:25 (Lyrica) 200 mg BID PO 06/08/17 09:00 06/10/17 08:21 (NS Flush) 2 ml UNSCH PRN IV FLUSH 06/08/17 05:00 (NS Flush) 2 ml BID IV FLUSH 06/08/17 09:00 06/10/17 08:21 Pharmacy Profile Note 0 ml @ 0 mls/hr UNSCH OTHER 06/08/17 05:00 (Tylenol) 650 mg Q4H PRN PO 06/08/17 05:00 (Zofran Inj) 4 mg Q6H PRN IV PUSH 06/08/17 05:00 (Lasix Inj) 40 mg BID@09,18 IV PUSH 06/08/17 09:00 06/10/17 17:08 (D50w (Vial) Inj) 50 ml UNSCH PRN IV PUSH 06/08/17 05:00 (Glucagon Inj) 1 mg UNSCH PRN OTHER 06/08/17 05:00 (NovoLOG SUPPLEMENTAL SCALE) 1 ACHS SLIDING SCALE SQ 06/08/17 08:00 06/10/17 17:09 Piperacillin Sod/ Tazobactam Sod 50 ml @ 100 mls/hr Q6H IV 06/08/17 08:00 06/10/17 15:09 Pharmacy Profile Note 0 ml @ 0 mls/hr UNSCH OTHER 06/08/17 08:00 (Tayler-Colace) 1 tab BID PO 06/08/17 21:30 06/09/17 07:45 (Senokot) 17.2 mg Q12H PRN PO 06/08/17 21:30 06/08/17 21:53 (Dulcolax Supp) 10 mg DAILY PRN RECTAL 06/08/17 21:30 (Benadryl) 25 mg HS PRN PO 06/09/17 21:00 06/09/17 23:33 (Cordarone) 400 mg Q12HR PO 06/10/17 11:00 06/10/17 11:47 (Coumadin) 5 mg DAILY@1600 PO 06/10/17 16:00 06/10/17 15:09 (Mucinex Er) 600 mg BID PO 06/10/17 11:00 06/10/17 11:46 (KCl) 20 meq Q12HR PO 06/10/17 11:00 06/10/17 11:46 (Coreg) 25 mg BID PO 06/10/17 21:00 Diltiazem HCl 125 mg/Sodium Chloride 125 ml @ 5 mls/hr TITRATE PRN IV 06/10/17 15:15 06/10/17 16:01 (Duoneb Neb) 1 ampule Q6HR NEB INH 06/10/17 16:00 (Atrovent Neb) 0.5 mg Q6HR NEB PRN INH 06/10/17 15:15 (Symbicort 160-4.5 Mcg Inh) 2 puff Q12HR INH 06/10/17 21:00 Vital Signs / I&O Vital Signs Date Time Temp Pulse Resp B/P (MAP) Pulse Ox O2 Delivery O2 Flow Rate FiO2 06/10/17 16:42 99.5 106 18 148/50 (82) 96 06/10/17 16:01 120 130/72 06/10/17 12:55 93 06/10/17 12:23 97.9 110 19 152/84 (106) 93 06/10/17 09:21 18 06/10/17 08:00 98.1 101 17 118/81 (93) 93 06/10/17 03:46 96.9 109 17 127/85 (99) 95 06/10/17 00:00 96.4 95 16 157/79 (105) 97 06/09/17 20:00 96.0 87 17 140/78 (98) 96 06/09/17 18:53 Room Air 06/09/17 17:52 96 21 I/O 06/09/17 06/09/17 06/09/17 06/10/17 06/10/17 06/10/17 07:00 15:00 23:00 07:00 15:00 23:00 Intake Total 50 ml 200 ml 800 ml 410 ml 600 ml Output Total 500 ml 600 ml 650 ml 450 ml Balance 50 ml -300 ml 200 ml -240 ml 150 ml Intake Oral 200 ml 750 ml 360 ml 600 ml IV Total 50 ml 50 ml 50 ml Output Urine Total 500 ml 600 ml 650 ml 450 ml # Bowel Movements 1 Physical Exam GENERAL: NAD, AAOx3 SKIN: Warm and dry. HEAD: Atraumatic. Normocephalic. EYES: Pupils equal and round. No scleral icterus. No injection or drainage. ENT: No nasal bleeding or discharge. Mucous membranes pink and moist. NECK: Trachea midline. No JVD. CARDIOVASCULAR: Irregularly irregular. RESPIRATORY: No accessory muscle use. Decreased breath sounds bilaterally GASTROINTESTINAL: Abdomen soft, non-tender, nondistended. Hepatic and splenic margins not palpable. MUSCULOSKELETAL: Extremities without clubbing, cyanosis, or edema. No obvious deformities. NEUROLOGICAL: Awake and alert. No obvious cranial nerve deficits. Motor grossly within normal limits. Five out of 5 muscle strength in the arms and legs. Normal speech. PSYCHIATRIC: Appropriate mood and affect; insight and judgment normal. Laboratory Laboratory Tests Test 06/10/17 07:13 Prothrombin Time 19.1 SEC Prothromb Time International Ratio 1.9 RATIO Blood Urea Nitrogen 32 MG/DL Creatinine 1.58 MG/DL Random Glucose 198 MG/DL Calcium Level 8.7 MG/DL Sodium Level 139 MEQ/L Potassium Level 3.4 MEQ/L Chloride Level 100 MEQ/L Carbon Dioxide Level 29.9 MEQ/L Anion Gap 9 MEQ/L Estimat Glomerular Filtration Rate 42 ML/MIN Assessment and Plan Problem List: (1) Pneumonia ICD Codes: J18.9 - Pneumonia, unspecified organism Status: Acute (2) Congestive heart failure ICD Codes: I50.9 - Heart failure, unspecified Status: Acute (3) Atrial fibrillation ICD Codes: I48.91 - Unspecified atrial fibrillation (4) Shortness of breath ICD Codes: R06.02 - Shortness of breath (5) Palpitations ICD Codes: R00.2 - Palpitations Assessment and Plan 1) Afib with RVR Recent Afib ablation Cardizem drip for rate control Con't Coumadin Con't Amio/Coreg 2) PNA Per the primary team 3) Previous chest pain appears to be pleuritic most likely due to ablation EKG with no elevations Anti-inflammatories as needed Problem Qualifiers (1) Pneumonia: Qualified Codes: J18.9 - Pneumonia, unspecified organism (2) Congestive heart failure: Qualified Codes: I50.9 - Heart failure, unspecified Michael Wick DO Jun 10, 2017 17:20
--- NOTE | 2017-06-10 18:38 | RADRPT ---
EXAM DATE/TIME: 06/10/2017 18:23 [place] COMPARISON: No previous studies available for comparison. INDICATIONS : Altered mental status. RADIATION DOSE: 55.20 CTDIvol (mGy) MEDICAL HISTORY : Congestive heart failure. Hypertension. diabetes SURGICAL HISTORY : None. ENCOUNTER: Initial ACUITY: 1 day PAIN SCALE: Non-responsive LOCATION: Bilateral head TECHNIQUE: Multiple contiguous axial images were obtained of the head. Using automated exposure control and adj ustment of the mA and/or kV according to patient size, radiation dose was kept as low as reasonably a chievable to obtain optimal diagnostic quality images. DICOM format image data is available electro nically for review and comparison. FINDINGS: CEREBRUM: The ventricles are normal for age. No evidence of midline shift, mass lesion, hemorrhage or acute in farction. No extra-axial fluid collections are seen. POSTERIOR FOSSA: The cerebellum and brainstem are intact. The 4th ventricle is midline. The cerebellopontine angle i s unremarkable. EXTRACRANIAL: The visualized portion of the orbits is intact. SKULL: The calvaria is intact. No evidence of skull fracture. CONCLUSION: Negative noncontrast head CT. Rajeev Madrid MD on June 10, 2017 at 18:36 Board Certified Radiologist. This report was verified electronically.
[2017-06-10 18:47] LABS: TROPONIN I 0.25 NG/ML (0.02-0.05)
[2017-06-10] MEDS: BUDESONIDE-FORMOTEROL 160/4.5 MCG INHALER INH SCH (21:00)
[2017-06-10] MEDS: ATORVASTATIN 40 MG TAB PO SCH (21:41)
[2017-06-11] VITALS (24 sets, daily range): BP systolic 107–158; BP diastolic 58–76; PULSE 68–101; RESP 18–22; TEMP 97.5–98.9; O2SAT 92–100
[2017-06-11] MEDS: PIPERACIL-TAZO 3.375 GM PREMIX 50 ML IV SCH ×5 (01:57→13:42)
[2017-06-11 02:09] LABS: ALBUMIN 2.5 GM/DL (3.4-5.0); ALKALINE PHOSPHATASE 56 U/L (45-117); ALT (GPT) 24 U/L (12-78); AST (GOT) 19 U/L (15-37); BICARBONATE 29.5 MEQ/L (21.0-32.0); BLOOD UREA NITROGEN 35 MG/DL (7-18); CALCIUM 8.2 MG/DL (8.5-10.1); CHLORIDE 101 MEQ/L (98-107); CREATININE 1.73 MG/DL (0.60-1.30); GLOMERULAR FILTRATION RATE 38 ML/MIN (>89); GLUCOSE,RANDOM 155 MG/DL (74-106); MAGNESIUM 2.1 MG/DL (1.5-2.5); PHOSPHORUS 3.3 MG/DL (2.5-4.9); RANDOM VANCOMYCIN 8.9 COMMENT; SODIUM (NA) 137 MEQ/L (136-145); TOTAL BILIRUBIN ADULT 1.1 MG/DL (0.2-1.0); TOTAL PROTEIN 6.1 GM/DL (6.4-8.2); TROPONIN I 0.19 NG/ML (0.02-0.05)
[2017-06-11] MEDS: RESP: ALBUTEROL 2.5 MG/IPRATROPIUM 0.5 MG NEB (SCH) INH ×4 (03:29→21:38)
[2017-06-11 07:04] LABS: AUTOMATED NEUTROPHIL # 9.2 TH/MM3 (1.8-7.7); BASOPHIL % 0.2 % (0.0-2.0); EOSINOPHIL # 0.1 TH/MM3 (0-0.4); EOSINOPHIL % 1.2 % (0.0-4.0); HEMATOCRIT 34.7 % (39.0-51.0); HEMOGLOBIN 11.9 GM/DL (13.0-17.0); LYMPHOCYTE # 1.2 TH/MM3 (1.0-4.8); MEAN CELL VOLUME 91.8 FL (80.0-100.0); MEAN CORPUSCULAR HEMOGLOBIN 31.5 PG (27.0-34.0); MEAN CORPUSCULAR HGB CONC 34.3 % (32.0-36.0); MEAN PLATELET VOLUME 9.4 FL (7.0-11.0); MONO % 9.7 % (0.0-8.0); MONOCYTE # 1.1 TH/MM3 (0-0.9); NEUT % 78.9 % (16.0-70.0); PLATELET COUNT 176 TH/MM3 (150-450); RED BLOOD COUNT 3.78 MIL/MM3 (4.50-5.90); RED CELL DISTRIBUTION WIDTH 14.2 % (11.6-17.2); WHITE BLOOD COUNT 11.6 TH/MM3 (4.0-11.0)
[2017-06-11 07:09] LABS: INTERNATIONAL NORMALIZED RATIO 2.4 RATIO; PROTHROMBIN TIME - PATIENT 24.4 SEC (9.8-11.6)
[2017-06-11 07:48] LABS: TROPONIN I 0.18 NG/ML (0.02-0.05)
[2017-06-11] MEDS: guaiFENesin E.R. 600 MG TAB PO SCH ×2 (08:06→21:31)
[2017-06-11] MEDS: CARVEDILOL 12.5 MG TAB PO SCH ×2 (08:07→21:31)
[2017-06-11] MEDS: AMIODARONE 200 MG TAB PO SCH ×2 (08:07→21:29)
[2017-06-11] MEDS: PREGABALIN 100 MG CAP PO SCH ×2 (08:07→21:31)
[2017-06-11] MEDS: FUROSEMIDE 40 MG/4 ML VIAL IV PUSH SCH ×2 (08:07→17:50)
[2017-06-11] MEDS: POTASSIUM CHLORIDE 20 MEQ CONTROLLED RELEASE TAB PO SCH ×2 (08:07→21:31)
[2017-06-11] MEDS: DOCUSATE SODIUM 50 MG/SENNA 8.6 MG TAB PO SCH ×2 (08:08→21:00)
[2017-06-11] MEDS: SODIUM CHLORIDE 0.9% FLUSH 10 ML FLUSH IV FLUSH SCH ×2 (08:08→21:29)
[2017-06-11] MEDS: INSULIN ASPART SUPPLEMENTAL SCALE SQ SCH ×4 (08:19→21:34)
[2017-06-11] MEDS: BUDESONIDE-FORMOTEROL 160/4.5 MCG INHALER INH SCH ×2 (08:26→21:29)
[2017-06-11] MEDS: DILTIAZEM INJ 125 MG in SODIUM CHLORIDE 0.9% INJ 100 ML IV PRN (08:27)
--- NOTE | 2017-06-11 10:31 | PD.CARD.PN ---
Subjective Subjective Remarks Follow up for Dr. Wu Uribe called yesterday for Afib with RVR after getting up for the restroom Currently, heart rates controlled on Cardizem drip at 5mg/hr Feels well, no complaints Objective Medications Current Medications Medications (Trade) Dose Ordered Sig/Chato Route Start Time Stop Time Status Last Admin (Lipitor) 40 mg HS PO 06/08/17 21:00 06/10/17 21:41 (Lyrica) 200 mg BID PO 06/08/17 09:00 06/11/17 08:07 (NS Flush) 2 ml UNSCH PRN IV FLUSH 06/08/17 05:00 (NS Flush) 2 ml BID IV FLUSH 06/08/17 09:00 06/11/17 08:08 Pharmacy Profile Note 0 ml @ 0 mls/hr UNSCH OTHER 06/08/17 05:00 (Tylenol) 650 mg Q4H PRN PO 06/08/17 05:00 (Zofran Inj) 4 mg Q6H PRN IV PUSH 06/08/17 05:00 (Lasix Inj) 40 mg BID@09,18 IV PUSH 06/08/17 09:00 06/11/17 08:07 (D50w (Vial) Inj) 50 ml UNSCH PRN IV PUSH 06/08/17 05:00 (Glucagon Inj) 1 mg UNSCH PRN OTHER 06/08/17 05:00 (NovoLOG SUPPLEMENTAL SCALE) 1 ACHS SLIDING SCALE SQ 06/08/17 08:00 06/11/17 08:19 Piperacillin Sod/ Tazobactam Sod 50 ml @ 100 mls/hr Q6H IV 06/08/17 08:00 06/11/17 10:23 Pharmacy Profile Note 0 ml @ 0 mls/hr UNSCH OTHER 06/08/17 08:00 (Tayler-Colace) 1 tab BID PO 06/08/17 21:30 06/11/17 08:08 (Senokot) 17.2 mg Q12H PRN PO 06/08/17 21:30 06/08/17 21:53 (Dulcolax Supp) 10 mg DAILY PRN RECTAL 06/08/17 21:30 (Benadryl) 25 mg HS PRN PO 06/09/17 21:00 1/26/18 23:33 (Cordarone) 400 mg Q12HR PO 06/10/17 11:00 06/11/17 08:07 (Mucinex Er) 600 mg BID PO 06/10/17 11:00 06/11/17 08:06 (KCl) 20 meq Q12HR PO 06/10/17 11:00 06/11/17 08:07 (Coreg) 25 mg BID PO 06/10/17 21:00 06/11/17 08:07 Diltiazem HCl 125 mg/Sodium Chloride 125 ml @ 5 mls/hr TITRATE PRN IV 06/10/17 15:15 06/11/17 08:27 (Duoneb Neb) 1 ampule Q6HR NEB INH 06/10/17 16:00 06/11/17 09:05 (Atrovent Neb) 0.5 mg Q6HR NEB PRN INH 06/10/17 15:15 (Symbicort 160-4.5 Mcg Inh) 2 puff Q12HR INH 06/10/17 21:00 06/11/17 08:26 (Coumadin) 2.5 mg DAILY@1600 PO 06/12/17 16:00 Future Hold Vital Signs / I&O Vital Signs Date Time Temp Pulse Resp B/P (MAP) Pulse Ox O2 Delivery O2 Flow Rate FiO2 06/11/17 09:06 95 Nasal Cannula 1.50 06/11/17 08:27 98 158/76 06/11/17 08:00 98.0 84 20 158/76 (103) 94 06/11/17 08:00 78 06/11/17 05:00 86 06/11/17 04:00 98.9 85 22 125/64 (84) 92 06/11/17 03:00 86 06/11/17 02:00 80 06/11/17 01:00 88 06/11/17 00:00 98.8 93 22 138/65 (89) 93 06/11/17 00:00 101 06/10/17 23:00 88 06/10/17 22:00 92 06/10/17 21:10 97 Nasal Cannula 1.50 06/10/17 21:00 104 06/10/17 20:00 115 06/10/17 20:00 98.2 103 22 144/69 (94) 96 06/10/17 20:00 Nasal Cannula 2.00 06/10/17 19:00 104 06/10/17 18:55 99.0 118 18 146/91 (109) 94 06/10/17 18:00 98 06/10/17 17:00 107 06/10/17 16:42 99.5 106 18 148/50 (82) 96 06/10/17 16:01 120 130/72 06/10/17 16:00 94 06/10/17 14:49 129 30 147/77 (100) 97 06/10/17 14:33 150 24 176/78 (110) 96 06/10/17 12:55 93 06/10/17 12:23 97.9 110 19 152/84 (106) 93 I/O 06/10/17 06/10/17 06/10/17 06/11/17 06/11/17 06/11/17 07:00 15:00 23:00 07:00 15:00 23:00 Intake Total 410 ml 650 ml 600 ml Output Total 650 ml 450 ml 750 ml Balance -240 ml 200 ml -150 ml Intake Oral 360 ml 600 ml 480 ml IV Total 50 ml 50 ml 120 ml Output Urine Total 650 ml 450 ml 750 ml # Bowel Movements 2 Physical Exam GENERAL: NAD, AAOx3 SKIN: Warm and dry. HEAD: Atraumatic. Normocephalic. EYES: Pupils equal and round. No scleral icterus. No injection or drainage. ENT: No nasal bleeding or discharge. Mucous membranes pink and moist. NECK: Trachea midline. No JVD. CARDIOVASCULAR: Irregularly irregular. RESPIRATORY: No accessory muscle use. Decreased breath sounds bilaterally GASTROINTESTINAL: Abdomen soft, non-tender, nondistended. Hepatic and splenic margins not palpable. MUSCULOSKELETAL: Extremities without clubbing, cyanosis, or edema. No obvious deformities. NEUROLOGICAL: Awake and alert. No obvious cranial nerve deficits. Motor grossly within normal limits. Five out of 5 muscle strength in the arms and legs. Normal speech. PSYCHIATRIC: Appropriate mood and affect; insight and judgment normal. Laboratory Laboratory Tests Test 06/10/17 17:52 06/11/17 00:36 06/11/17 03:40 Total Creatine Kinase 57 U/L 74 U/L 56 U/L Troponin I 0.25 NG/ML 0.19 NG/ML 0.18 NG/ML Blood Urea Nitrogen 35 MG/DL Creatinine 1.73 MG/DL Random Glucose 155 MG/DL Total Protein 6.1 GM/DL Albumin 2.5 GM/DL Calcium Level 8.2 MG/DL Phosphorus Level 3.3 MG/DL Magnesium Level 2.1 MG/DL Alkaline Phosphatase 56 U/L Aspartate Amino Transf (AST/SGOT) 19 U/L Alanine Aminotransferase (ALT/SGPT) 24 U/L Total Bilirubin 1.1 MG/DL Sodium Level 137 MEQ/L Potassium Level 3.7 MEQ/L Chloride Level 101 MEQ/L Carbon Dioxide Level 29.5 MEQ/L Anion Gap 7 MEQ/L Estimat Glomerular Filtration Rate 38 ML/MIN Free Thyroxine 1.30 NG/DL Thyroid Stimulating Hormone 3rd Gen 0.253 uIU/ML Random Vancomycin Level 8.9 COMMENT White Blood Count 11.6 TH/MM3 Red Blood Count 3.78 MIL/MM3 Hemoglobin 11.9 GM/DL Hematocrit 34.7 % Mean Corpuscular Volume 91.8 FL Mean Corpuscular Hemoglobin 31.5 PG Mean Corpuscular Hemoglobin Concent 34.3 % Red Cell Distribution Width 14.2 % Platelet Count 176 TH/MM3 Mean Platelet Volume 9.4 FL Neutrophils (%) (Auto) 78.9 % Lymphocytes (%) (Auto) 10.0 % Monocytes (%) (Auto) 9.7 % Eosinophils (%) (Auto) 1.2 % Basophils (%) (Auto) 0.2 % Neutrophils # (Auto) 9.2 TH/MM3 Lymphocytes # (Auto) 1.2 TH/MM3 Monocytes # (Auto) 1.1 TH/MM3 Eosinophils # (Auto) 0.1 TH/MM3 Basophils # (Auto) 0.0 TH/MM3 CBC Comment DIFF FINAL Differential Comment Prothrombin Time 24.4 SEC Prothromb Time International Ratio 2.4 RATIO B-Type Natriuretic Peptide 191 PG/ML Assessment and Plan Problem List: (1) Pneumonia ICD Codes: J18.9 - Pneumonia, unspecified organism Status: Acute (2) Congestive heart failure ICD Codes: I50.9 - Heart failure, unspecified Status: Acute (3) Atrial fibrillation ICD Codes: I48.91 - Unspecified atrial fibrillation (4) Shortness of breath ICD Codes: R06.02 - Shortness of breath (5) Palpitations ICD Codes: R00.2 - Palpitations Assessment and Plan 1) Afib with RVR Recent Afib ablation Cardizem drip for rate control, will plan to stop, start on Cardizem PO 30 q6 , can be changed to long acting on discharge Con't Coumadin Con't Amio/Coreg 2) PNA Per the primary team 3) Previous chest pain appears to be pleuritic most likely due to ablation EKG with no elevations Anti-inflammatories as needed 4) Troponin elevation Secondary to ablation, continues to decrease No further work up Problem Qualifiers (1) Pneumonia: Qualified Codes: J18.9 - Pneumonia, unspecified organism (2) Congestive heart failure: Qualified Codes: I50.9 - Heart failure, unspecified Michael Wick DO Jun 11, 2017 10:31
[2017-06-11 11:07] LABS: HEMOGLOBIN A1C 7.4 % (4.3-6.0)
[2017-06-11] MEDS: DILTIAZEM HCL 30 MG TAB PO SCH ×2 (11:11→17:50)
--- NOTE | 2017-06-11 12:41 | EKG ---
Date Performed: 06/10/2017 Time Performed: 14:42:56 PTAGE: 81 years EKG: ATRIAL FIBRILLATION WITH RAPID VENTRICULAR RESPONSE MODERATE ST DEPRESSION Compared to prev ious tracing, atrial fibrillation is new Clinical correlation is recommended ABNORMAL ECG PREVIOUS TRACING : 06/07/2017 23.36 DOCTOR: Modesto Claros Interpretating Date/Time 06/11/2017 12:40:47
[2017-06-11] MEDS ORDERED: VANCOMYCIN INJ 1,750 MG in SODIUM CHLORID 0.9% 500 ML INJ 500 ML IV ONE (13:00)
--- NOTE | 2017-06-11 15:23 | HHI.PR ---
Subjective Remarks Follow-up for atrial fibrillation with RVR and pneumonia Patient denies any shortness of breathing, chest pain, palpitations, lightheadedness/dizziness. He also denies a cough. Patient stated that he feels like he is back to his baseline. He is very anxious to go. He is asking if I can take him off all the IV medications that he can go home tomorrow. His and son at the bedside during the interview. Objective Vitals Vital Signs Date Time Temp Pulse Resp B/P (MAP) Pulse Ox O2 Delivery O2 Flow Rate FiO2 06/11/17 14:00 81 06/11/17 13:00 68 06/11/17 12:00 74 06/11/17 11:00 82 06/11/17 11:00 98.6 85 18 107/58 (74) 95 06/11/17 11:00 94 Nasal Cannula 2.00 06/11/17 09:06 95 Nasal Cannula 1.50 06/11/17 08:27 98 158/76 06/11/17 08:00 98.0 84 20 158/76 (103) 94 06/11/17 08:00 78 06/11/17 05:00 86 06/11/17 04:00 98.9 85 22 125/64 (84) 92 06/11/17 03:00 86 06/11/17 02:00 80 06/11/17 01:00 88 06/11/17 00:00 98.8 93 22 138/65 (89) 93 06/11/17 00:00 101 06/10/17 23:00 88 06/10/17 22:00 92 06/10/17 21:10 97 Nasal Cannula 1.50 06/10/17 21:00 104 06/10/17 20:00 115 06/10/17 20:00 98.2 103 22 144/69 (94) 96 06/10/17 20:00 Nasal Cannula 2.00 06/10/17 19:00 104 06/10/17 18:55 99.0 118 18 146/91 (109) 94 06/10/17 18:00 98 06/10/17 17:00 107 06/10/17 16:42 99.5 106 18 148/50 (82) 96 06/10/17 16:01 120 130/72 06/10/17 16:00 94 I/O 06/10/17 06/10/17 06/10/17 06/11/17 06/11/17 06/11/17 07:00 15:00 23:00 07:00 15:00 23:00 Intake Total 410 ml 650 ml 600 ml Output Total 650 ml 450 ml 750 ml Balance -240 ml 200 ml -150 ml Intake Oral 360 ml 600 ml 480 ml IV Total 50 ml 50 ml 120 ml Output Urine Total 650 ml 450 ml 750 ml # Bowel Movements 2 Result Diagram: 06/11/17 0340 06/11/17 0036 Imaging Last Impressions Head CT 06/10/17 0000 Signed Impressions: Service Date/Time: Saturday, June 10, 2017 18:23 - CONCLUSION: Negative noncontrast head CT. Rajeev Madrid MD Chest X-Ray 06/07/17 2336 Signed Impressions: Service Date/Time: Wednesday, June 07, 2017 23:46 - CONCLUSION: Interval development of fullness and indistinctness of the central bronchopulmonary markings, right pleural effusion, and patchy infiltrates in the left lower lobe. Mckinley Villegas MD Objective Remarks GENERAL: in NAD CARDIOVASCULAR: Irregular rate and irregular rhythm without murmurs, gallops, or rubs. RESPIRATORY: Breath sounds equal bilaterally. No accessory muscle use. GASTROINTESTINAL: Abdomen soft, non-tender, nondistended. MUSCULOSKELETAL: Trace to +1 lower extremity edema Medications and IVs Current Medications Nitroglycerin (Nitroglycerin 2% Oint) 1 inch ONCE ONCE TOP Last administered on 06/07/17at 23:58; Start 06/07/17 at 23:45; Stop 06/07/17 at 23:46; Status DC Sodium Chloride (NS Flush) 2 ml UNSCH PRN IVF FLUSH AFTER USING IV ACCESS; Start 06/07/17 at 23:45; Stop 06/08/17 at 05:22; Status DC Furosemide (Lasix Inj) 40 mg ONCE ONCE IV PUSH Last administered on 06/07/17at 23:58; Start 06/07/17 at 23:45; Stop 06/07/17 at 23:46; Status DC Piperacillin Sod/ Tazobactam Sod 50 ml @ 100 mls/hr ONCE ONCE IV Last administered on 06/08/17at 01:25; Start 06/08/17 at 00:45; Stop 06/08/17 at 01:14 ; Status DC Vancomycin/Sodium Chloride 200 ml @ 200 mls/hr ONCE ONCE IV ; Start 06/08/17 at 03:45; Stop 06/08/17 at 04:44; Status Cancel Atorvastatin Calcium (Lipitor) 40 mg HS PO Last administered on 06/10/17at 21:41 ; Start 06/08/17 at 21:00 Carvedilol (Coreg) 25 mg DAILY PO Last administered on 06/10/17at 08:21; Start 06/08/17 at 09:00; Stop 06/10/17 at 14:40; Status DC Pregabalin (Lyrica) 200 mg BID PO Last administered on 06/11/17at 08:07; Start 06/08/17 at 09:00 Warfarin Sodium (Coumadin) 2.5 mg DAILY@1600 PO ; Start 06/08/17 at 16:00; Stop 06/08/17 at 16:00; Status DC Warfarin Sodium (Coumadin) 5 mg MoWeFr PO Last administered on 06/09/17at 15:11 ; Start 06/09/17 at 16:00; Stop 06/10/17 at 09:56; Status DC Sodium Chloride (NS Flush) 2 ml UNSCH PRN IV FLUSH FLUSH AFTER USING IV ACCESS ; Start 06/08/17 at 05:00 Sodium Chloride (NS Flush) 2 ml BID IV FLUSH Last administered on 06/11/17at 08: 08; Start 06/08/17 at 09:00 Piperacillin Sod/ Tazobactam Sod 100 ml @ 200 mls/hr Q6H IV ; Start 06/08/17 at 07:00; Status UNV Vancomycin HCl 1000 mg/Sodium Chloride 250 ml @ 250 mls/hr ONCE ONCE IV ; Start 06/08/17 at 16:00; Stop 06/08/17 at 16:59; Status UNV Pharmacy Profile Note 0 ml @ 0 mls/hr UNSCH OTHER ; Start 06/08/17 at 05:00 Albuterol/ Ipratropium (Duoneb Neb) 1 ampule Q4HR NEB PRN INH SHORTNESS OF BREATH Last administered on 06/10/17at 13:11; Start 06/08/17 at 05:00; Stop 06/10 at 15:15; Status DC Acetaminophen (Tylenol) 650 mg Q4H PRN PO TEMPERATURE > 101 F; Start 06/08/17 at 05:00 Ondansetron HCl (Zofran Inj) 4 mg Q6H PRN IV PUSH NAUSEA; Start 06/08/17 at 05: 00 Furosemide (Lasix Inj) 40 mg BID@09,18 IV PUSH Last administered on 06/11/17at 08:07; Start 06/08/17 at 09:00 Dextrose (D50w (Vial) Inj) 50 ml UNSCH PRN IV PUSH HYPOGLYCEMIA-SEE COMMENTS; Start 06/08/17 at 05:00 Glucagon (Glucagon Inj) 1 mg UNSCH PRN OTHER HYPOGLYCEMIA-SEE COMMENTS; Start 06/08/17 at 05:00 Insulin Aspart (NovoLOG SUPPLEMENTAL SCALE) 1 ACHS SLIDING SCALE SQ Last administered on 06/11/17at 13:42; Start 06/08/17 at 08:00 Piperacillin Sod/ Tazobactam Sod 50 ml @ 100 mls/hr Q6H IV Last administered on 06/11/17at 13:42; Start 06/08/17 at 08:00 Warfarin Sodium (Coumadin) 2.5 mg SuTuThSa PO Last administered on 06/08/17at 17 :13; Start 06/08/17 at 16:00; Stop 06/10/17 at 09:56; Status DC Vancomycin HCl 1800 mg/Sodium Chloride 518 ml @ 250 mls/hr Q12H IV ; Start at 06:00; Stop 06/08/17 at 06:00; Status DC Vancomycin HCl 1800 mg/Sodium Chloride 518 ml @ 250 mls/hr ONCE ONCE IV Last administered on 06/08/17at 07:15; Start 06/08/17 at 06:00; Stop 06/08/17 at 08:04 ; Status DC Pharmacy Profile Note 0 ml @ 0 mls/hr UNSCH OTHER ; Start 06/08/17 at 08:00 Senna/Docusate Sodium (Tayler-Colace) 1 tab BID PO Last administered on at 08:08; Start 06/08/17 at 21:30 Sennosides (Senokot) 17.2 mg Q12H PRN PO Moderate constipation Last administered on 06/08/17at 21:53; Start 06/08/17 at 21:30 Bisacodyl (Dulcolax Supp) 10 mg DAILY PRN RECTAL SEVERE CONSITIPATION; Start at 21:30 Diphenhydramine HCl (Benadryl) 25 mg ONCE ONCE PO Last administered on at 00:56; Start 06/09/17 at 00:30; Stop 06/09/17 at 00:41; Status DC Vancomycin HCl 1750 mg/Sodium Chloride 517.5 ml @ 250 mls/hr ONCE ONCE IV Last administered on 06/09/17at 12:01; Start 06/09/17 at 12:00; Stop 06/09/17 at 14:04; Status DC Diphenhydramine HCl (Benadryl) 25 mg HS PRN PO INSOMNIA Last administered on at 23:33; Start 06/09/17 at 21:00 Amiodarone HCl (Cordarone) 400 mg Q12HR PO Last administered on 06/11/17at 08:07 ; Start 06/10/17 at 11:00 Warfarin Sodium (Coumadin) 5 mg DAILY@1600 PO Last administered on 06/10/17at 15 :09; Start 06/10/17 at 16:00; Stop 06/11/17 at 08:46; Status DC Guaifenesin (Mucinex Er) 600 mg BID PO Last administered on 06/11/17at 08:06; Start 06/10/17 at 11:00 Potassium Chloride (KCl) 20 meq Q12HR PO Last administered on 06/11/17at 08:07; Start 06/10/17 at 11:00 Carvedilol (Coreg) 25 mg BID PO Last administered on 06/11/17at 08:07; Start at 21:00 Metoprolol Tartrate (Lopressor) 50 mg ONCE ONCE PO Last administered on at 15:09; Start 06/10/17 at 14:45; Stop 06/10/17 at 14:56; Status DC Diltiazem HCl (Cardizem Inj) 20 mg ONCE ONCE IV PUSH Last administered on 06/10at 15:45; Start 06/10/17 at 15:15; Stop 06/10/17 at 15:16; Status DC Diltiazem HCl 125 mg/Sodium Chloride 125 ml @ 5 mls/hr TITRATE PRN IV Tachycardia Last administered on 06/11/17at 08:27; Start 06/10/17 at 15:15 Albuterol/ Ipratropium (Duoneb Neb) 1 ampule Q6HR NEB INH Last administered on 06/11/17at 09:05; Start 06/10/17 at 16:00 Ipratropium [place] (Atrovent Neb) 0.5 mg Q6HR NEB PRN INH SHORTNESS OF BREATH ; Start 06/10/17 at 15:15 Budesonide/ Formoterol Fumarate (Symbicort 160-4.5 Mcg Inh) 2 puff Q12HR INH Last administered on 06/11/17at 08:26; Start 06/10/17 at 21:00 Warfarin Sodium (Coumadin) 2.5 mg DAILY@1600 PO ; Start 06/12/17 at 16:00; Status Future Hold Diltiazem HCl (Cardizem) 30 mg Q6HR PO Last administered on 06/11/17at 11:11; Start 06/11/17 at 12:00 Vancomycin HCl 1750 mg/Sodium Chloride 517.5 ml @ 257.5 mls/ hr ONCE ONCE IV Last administered on 06/11/17at 13:43; Start 06/11/17 at 13:00; Stop 06/11/17 at 15:00; Status DC A/P Assessment and Plan This is an 81-year-old male presented with shortness of breathing Hospital-acquired pneumonia versus community-acquired pneumonia -Chest x-ray significant for patchy infiltrates in the left lower lobe. Patient with leukocytosis and left shift, nonproductive cough, hypoxia -Improving rapidly. -Currently on vancomycin and Zosyn. Patient back to baseline. We will discontinue vancomycin and Zosyn and start him on oral Levaquin. -Wean oxygen as tolerated. Will order walk test. Acute on chronic systolic CHF -Chest x-ray shows pulmonary edema and right pleural effusion. -On IV Lasix and Coreg. -adding NICOLE-inhibitor if renal function remains stable. -Continue with strict ins and outs. Monitor creatinine. Acute on chronic renal insufficiency -Creatinine initially at 1.94, yesterday 1.42 to 1.73 today. This seems to be her baseline. -Monitor renal function -Renally dose medications Atrial fibrillation with RVR on chronic anticoagulation -Currently on Coumadin and therapeutic. Being managed by pharmacist. -Status post recent ablation -[employer] following. -Cardizem drip was stopped this morning. Patient on Cardizem 30 mg 4 times a day. Upon discharge can DC on long-acting Cardizem. Patient also on amiodarone 400 mg by mouth twice a day and carvedilol. Elevated troponin -Initial troponin 1.62, repeat 1.33 -Treated down. As likely secondary to ablation. Diabetes mellitus -SSI -Monitor BG CAD -Continue Coreg Diabetic neuropathy -Continue Lyrica DVT prophylaxis -On Coumadin and therapeutic. Discharge Planning Walk test ordered. Patient may need oxygen upon discharge. Anticipating discharge tomorrow if he continues to do well. Alaina Mayen MD Jun 11, 2017 15:23
[2017-06-11] MEDS: LEVOFLOXACIN 750 MG TAB PO SCH (16:21)
[2017-06-11] MEDS: ATORVASTATIN 40 MG TAB PO SCH (21:31)
[2017-06-12] VITALS (21 sets, daily range): BP systolic 119–164; BP diastolic 68–97; PULSE 60–92; RESP 16–20; TEMP 97.3–98.3; O2SAT 92–99
[2017-06-12] MEDS: DILTIAZEM HCL 30 MG TAB PO SCH ×4 (00:31→17:02)
[2017-06-12] MEDS ORDERED: BENZONATATE 100 MG CAP PO PRN (03:15)
[2017-06-12] MEDS: RESP: ALBUTEROL 2.5 MG/IPRATROPIUM 0.5 MG NEB (SCH) INH ×3 (03:35→15:08)
[2017-06-12 06:47] LABS: INTERNATIONAL NORMALIZED RATIO 3.2 RATIO; PROTHROMBIN TIME - PATIENT 32.3 SEC (9.8-11.6)
[2017-06-12 06:55] LABS: BICARBONATE 28.3 MEQ/L (21.0-32.0); CALCIUM 8.1 MG/DL (8.5-10.1); CREATININE 1.74 MG/DL (0.60-1.30); MAGNESIUM 2.3 MG/DL (1.5-2.5)
[2017-06-12 06:58] LABS: HEMATOCRIT 34.3 % (39.0-51.0); HEMOGLOBIN 11.9 GM/DL (13.0-17.0); MEAN CELL VOLUME 92.4 FL (80.0-100.0); MEAN CORPUSCULAR HEMOGLOBIN 32.1 PG (27.0-34.0); MEAN CORPUSCULAR HGB CONC 34.8 % (32.0-36.0); MEAN PLATELET VOLUME 8.9 FL (7.0-11.0); PLATELET COUNT 164 TH/MM3 (150-450); RED BLOOD COUNT 3.71 MIL/MM3 (4.50-5.90); RED CELL DISTRIBUTION WIDTH 14.2 % (11.6-17.2); WHITE BLOOD COUNT 9.5 TH/MM3 (4.0-11.0)
[2017-06-12] MEDS: INSULIN ASPART SUPPLEMENTAL SCALE SQ SCH ×4 (08:00→20:27)
--- NOTE | 2017-06-12 08:29 | HHI.PR ---
Subjective Remarks Feels better today. No n/v/d/c. Denies chest pain or sob. No palpitations. Patient is considering and will think to do ablation. He wants to go home. Cleared by Dr Washburn for dc later today. Objective Vitals Vital Signs Date Time Temp Pulse Resp B/P (MAP) Pulse Ox O2 Delivery O2 Flow Rate FiO2 06/12/17 06:00 78 06/12/17 05:00 78 06/12/17 04:00 74 06/12/17 03:00 97.8 82 16 119/68 (85) 93 06/12/17 03:00 90 06/12/17 02:00 76 06/12/17 01:00 82 06/12/17 00:00 82 06/11/17 23:00 79 06/11/17 23:00 83 18 132/72 (92) 95 06/11/17 22:00 82 06/11/17 21:39 97 06/11/17 21:00 80 06/11/17 20:00 74 06/11/17 19:45 97.5 79 20 125/69 (87) 94 06/11/17 19:45 94 Room Air 06/11/17 19:00 87 06/11/17 18:00 99 06/11/17 17:09 94 21 06/11/17 17:00 86 06/11/17 16:00 74 06/11/17 15:00 89 06/11/17 15:00 98.0 89 18 117/62 (80) 100 06/11/17 14:00 81 06/11/17 13:00 68 06/11/17 12:00 74 06/11/17 11:00 82 06/11/17 11:00 98.6 85 18 107/58 (74) 95 06/11/17 11:00 94 Nasal Cannula 2.00 06/11/17 09:06 95 Nasal Cannula 1.50 06/11/17 08:27 98 158/76 I/O 06/11/17 06/11/17 06/11/17 06/12/17 06/12/17 06/12/17 07:00 15:00 23:00 07:00 15:00 23:00 Intake Total 600 ml 517.5 ml 890 ml 480 ml Output Total 750 ml 475 ml 1650 ml Balance -150 ml 517.5 ml 415 ml -1170 ml Intake Oral 480 ml 840 ml 480 ml IV Total 120 ml 517.5 ml 50 ml Output Urine Total 750 ml 475 ml 1650 ml # Bowel Movements 2 0 Result Diagram: 06/12/1718 06/12/1718 Imaging Last Impressions Head CT 06/10/17 0000 Signed Impressions: Service Date/Time: Saturday, June 10, 2017 18:23 - CONCLUSION: Negative noncontrast head CT. Rajeev Madrid MD Chest X-Ray 06/07/17 2336 Signed Impressions: Service Date/Time: Wednesday, June 07, 2017 23:46 - CONCLUSION: Interval development of fullness and indistinctness of the central bronchopulmonary markings, right pleural effusion, and patchy infiltrates in the left lower lobe. Mckinley Villegas MD Objective Remarks GENERAL: in NAD CARDIOVASCULAR: Irregular rate and irregular rhythm without murmurs, gallops, or rubs. RESPIRATORY: Breath sounds equal bilaterally. No accessory muscle use. GASTROINTESTINAL: Abdomen soft, non-tender, nondistended. MUSCULOSKELETAL: Trace to +1 lower extremity edema A/P Assessment and Plan This is an 81-year-old male presented with shortness of breathing Hospital-acquired pneumonia versus community-acquired pneumonia -Chest x-ray significant for patchy infiltrates in the left lower lobe. Patient with leukocytosis and left shift, nonproductive cough, hypoxia -Improving rapidly. -Currently on vancomycin and Zosyn. Patient back to baseline. We will discontinue vancomycin and Zosyn and start him on oral Levaquin. -Wean oxygen as tolerated. Will order walk test. Acute on chronic systolic CHF -Chest x-ray shows pulmonary edema and right pleural effusion. -On IV Lasix and Coreg. -adding NICOLE-inhibitor if renal function remains stable. -Continue with strict ins and outs. Monitor creatinine. Acute on chronic renal insufficiency -Creatinine initially at 1.94, yesterday 1.42 to 1.73 today. This seems to be her baseline. -Monitor renal function -Renally dose medications Atrial fibrillation with RVR on chronic anticoagulation -Currently on Coumadin and therapeutic. Being managed by pharmacist. -Status post recent ablation -[employer] following. -Cardizem drip was stopped. Patient on Cardizem 30 mg 4 times a day. Upon discharge can DC on long-acting Cardizem. Patient also on amiodarone 400 mg by mouth twice a day for 7 days total then to have 200m mg po daily, also continue carvedilol. To follow up as OP with cardiology Dr Washburn Elevated troponin -Initial troponin 1.62, repeat 1.33 -Treated down. As likely secondary to ablation. Diabetes mellitus 2 -SSI -Monitor BG CAD -Continue Coreg Diabetic neuropathy -Continue Lyrica DVT prophylaxis -On Coumadin and therapeutic. Discharge Planning Passed O2 Walk test. Poss DC today Mya Ugarte MD Jun 12, 2017 08:29
--- NOTE | 2017-06-12 08:51 | HHI.DS ---
Discharge Summary Admission Date Jun 08, 2017 at 03:46 Discharge Date: Jun 12, 2017 Admitting Diagnosis Pneumonia, CHF (1) Congestive heart failure ICD Code: I50.9 - Heart failure, unspecified Status: Acute (2) Pneumonia ICD Code: J18.9 - Pneumonia, unspecified organism Status: Acute (3) Anticoagulated on Coumadin ICD Code: Z51.81 - Encounter for therapeutic drug level monitoring; Z79.01 - residential (current) use of anticoagulants (4) Atrial fibrillation ICD Code: I48.91 - Unspecified atrial fibrillation (5) Shortness of breath ICD Code: R06.02 - Shortness of breath (6) Palpitations ICD Code: R00.2 - Palpitations Procedures none Brief History - From Admission 81-year-old male with a past medical history significant for CAD, CHF (no previous echo for comparison), diabetes mellitus, hyperlipidemia, neuropathy and a history of atrial fibrillation status post ablation on Monday currently anticoagulated on warfarin presents to the emergency department for evaluation of progressively worsening shortness of breath. The patient reports that the shortness of breath began around the time of his ablation and has persisted for the past 4 days. He endorses a cough that is nonproductive for the past 3 days. Denies fever/chills. Vital signs: Temperature 98.4, pulse 92, respiratory rate 28, BP 186/79, pulse ox 89% on room air. CBC/BMP: 06/12/17 0618 06/12/17 0618 Significant Findings Laboratory Tests Test 06/10/17 07:13 06/10/17 17:52 06/11/17 00:36 06/11/17 03:40 Prothrombin Time 19.1 SEC (9.8-11.6) 24.4 SEC (9.8-11.6) Blood Urea Nitrogen 32 MG/DL (7-18) 35 MG/DL (7-18) Creatinine 1.58 MG/DL (0.60-1.30) 1.73 MG/DL (0.60-1.30) Random Glucose 198 MG/DL (74-106) 155 MG/DL (74-106) Potassium Level 3.4 MEQ/L (3.5-5.1) Estimat Glomerular Filtration Rate 42 ML/MIN (>89) 38 ML/MIN (>89) Troponin I 0.25 NG/ML (0.02-0.05) 0.19 NG/ML (0.02-0.05) 0.18 NG/ML (0.02-0.05) Total Protein 6.1 GM/DL (6.4-8.2) Albumin 2.5 GM/DL (3.4-5.0) Calcium Level 8.2 MG/DL (8.5-10.1) Total Bilirubin 1.1 MG/DL (0.2-1.0) Thyroid Stimulating Hormone 3rd Gen 0.253 uIU/ML (0.358-3.740) White Blood Count 11.6 TH/MM3 (4.0-11.0) Red Blood Count 3.78 MIL/MM3 (4.50-5.90) Hemoglobin 11.9 GM/DL (13.0-17.0) Hematocrit 34.7 % (39.0-51.0) Neutrophils (%) (Auto) 78.9 % (16.0-70.0) Monocytes (%) (Auto) 9.7 % (0.0-8.0) Neutrophils # (Auto) 9.2 TH/MM3 (1.8-7.7) Monocytes # (Auto) 1.1 TH/MM3 (0-0.9) Hemoglobin A1c 7.4 % (4.3-6.0) B-Type Natriuretic Peptide 191 PG/ML (0-100) Test 06/12/17 06:18 Red Blood Count 3.71 MIL/MM3 (4.50-5.90) Hemoglobin 11.9 GM/DL (13.0-17.0) Hematocrit 34.3 % (39.0-51.0) Prothrombin Time 32.3 SEC (9.8-11.6) Blood Urea Nitrogen 42 MG/DL (7-18) Creatinine 1.74 MG/DL (0.60-1.30) Random Glucose 175 MG/DL (74-106) Calcium Level 8.1 MG/DL (8.5-10.1) Estimat Glomerular Filtration Rate 38 ML/MIN (>89) Imaging Last Impressions Head CT 06/10/17 0000 Signed Impressions: Service Date/Time: Saturday, June 10, 2017 18:23 - CONCLUSION: Negative noncontrast head CT. Rajeev Madrid MD Chest X-Ray 06/07/17 2336 Signed Impressions: Service Date/Time: Wednesday, June 07, 2017 23:46 - CONCLUSION: Interval development of fullness and indistinctness of the central bronchopulmonary markings, right pleural effusion, and patchy infiltrates in the left lower lobe. Mckinley Villegas MD PE at Discharge GENERAL: in NAD CARDIOVASCULAR: Irregular rate and irregular rhythm without murmurs, gallops, or rubs. RESPIRATORY: Breath sounds equal bilaterally. No accessory muscle use. GASTROINTESTINAL: Abdomen soft, non-tender, nondistended. MUSCULOSKELETAL: Trace to +1 lower extremity edema Hospital Course This is an 81-year-old male presented with shortness of breathing Hospital-acquired pneumonia versus community-acquired pneumonia -Chest x-ray significant for patchy infiltrates in the left lower lobe. Patient with leukocytosis and left shift, nonproductive cough, hypoxia -Improving rapidly. -Currently on vancomycin and Zosyn. Patient back to baseline. We will discontinue vancomycin and Zosyn and start him on oral Levaquin. -Wean oxygen as tolerated. Will order walk test. Acute on chronic systolic CHF -Chest x-ray shows pulmonary edema and right pleural effusion. -On IV Lasix and Coreg. -adding NICOLE-inhibitor if renal function remains stable. -Continue with strict ins and outs. Monitor creatinine. Acute on chronic renal insufficiency -Creatinine initially at 1.94, yesterday 1.42 to 1.73 today. This seems to be her baseline. -Monitor renal function -Renally dose medications Atrial fibrillation with RVR on chronic anticoagulation -Currently on Coumadin and therapeutic. Being managed by pharmacist. -Status post recent ablation -Visualization Developer following. -Cardizem drip was stopped. Patient on Cardizem 30 mg 4 times a day. Upon discharge can DC on long-acting Cardizem. Patient also on amiodarone 400 mg by mouth twice a day for 7 days total then to have 200m mg po daily, also continue carvedilol. To follow up as OP with cardiology Dr Washburn Elevated troponin -Initial troponin 1.62, repeat 1.33 -Treated down. As likely secondary to ablation. Diabetes mellitus 2 -SSI -Monitor BG CAD -Continue Coreg Diabetic neuropathy -Continue Lyrica DVT prophylaxis -On Coumadin and therapeutic. Discharge Planning Passed O2 Walk test. Improved, DC home in stable condition to follow up as OP with PCP and consultants. Pt Condition on Discharge: Stable Discharge Disposition: Disch w/ Home Health Serv Discharge Time: > 30 minutes Discharge Instructions DIET: Follow Instructions for: Heart Healthy Diet, Diabetic Diet Activities you can perform: Regular-No Restrictions Follow up Referrals: Cardiology - 3-5 Days PCP Follow-up - 06/13/17 New Medications: Amiodarone (Amiodarone) 200 Mg Tab 200 MG PO DAILY for Regulate Heart Beat, #30 TAB 0 Refills Diltiazem ER 24 HR (Cardizem LA) 120 Mg Sandra 120 MG PO DAILY for afib, #30 TAB 0 Refills Amiodarone (Amiodarone) 200 Mg Tab 400 MG PO Q12HR for afib, #4 TAB take amiodarone 400 mg bid for 2 more days, then take amiodarone 200 mg by mouth daily Carvedilol (Coreg) 12.5 Mg Tab 25 MG PO BID for Blood Pressure Management, #60 TAB Levofloxacin (Levaquin) 750 Mg Tablet 750 MG PO DAILY for pna, #3 MG Continued Medications: Atorvastatin (Atorvastatin) 40 Mg Tab 40 MG PO HS for Cholesterol Management, #30 TAB 0 Refills Carvedilol (Carvedilol) 25 Mg Tab 25 MG PO DAILY, #60 TAB 0 Refills Furosemide (Furosemide) 40 Mg Tab 40 MG PO DAILY, #30 TAB 0 Refills Insulin Human Regular Inj (Humulin R Inj) 1,000 Unit/10 Ml Vial 5-25 UNITS SQ ACHS for Blood Sugar Management, #10 ML 0 Refills Max dose at bedtime:( )units; sugars < 70,(0)units; sugars 150-199,(5)units; sugars 200-249,(10)units; sugars 250-299,(15)units; sugars 300-349,(20)units; sugars more than 349,(25)units. Liraglutide Inj (Victoza Inj) 18 Mg/3 Ml Pen 1.8 MG SQ DAILY, #1 PEN 0 Refills Pregabalin (Lyrica) 200 Mg Cap 200 MG PO BID, #60 CAP 0 Refills PT TAKES 200MG IN AM AND 100MG AT HS Warfarin (Warfarin) 5 Mg Tab 5 MG PO DAILY for Blood Clot Prevention, #30 TAB 0 Refills ONE 5 MG TAB Q MON, WED, MON Discontinued Medications: Warfarin (Warfarin) 2.5 Mg Tab 2.5 MG PO DAILY for Blood Clot Prevention, #30 TAB 0 Refills ONE 2.5 MG TAB Q ART, BIBI MICHEL THURS Cosma, Mirela MD Jun 12, 2017 08:51
[2017-06-12] MEDS: CARVEDILOL 12.5 MG TAB PO SCH ×2 (08:52→20:19)
[2017-06-12] MEDS: LEVOFLOXACIN 750 MG TAB PO SCH (08:52)
[2017-06-12] MEDS: guaiFENesin E.R. 600 MG TAB PO SCH ×2 (08:52→20:18)
[2017-06-12] MEDS: POTASSIUM CHLORIDE 20 MEQ CONTROLLED RELEASE TAB PO SCH ×2 (08:52→20:18)
[2017-06-12] MEDS: DOCUSATE SODIUM 50 MG/SENNA 8.6 MG TAB PO SCH ×2 (08:53→20:18)
[2017-06-12] MEDS: AMIODARONE 200 MG TAB PO SCH ×2 (08:53→20:19)
[2017-06-12] MEDS: SODIUM CHLORIDE 0.9% FLUSH 10 ML FLUSH IV FLUSH SCH ×2 (08:53→20:26)
[2017-06-12] MEDS: PREGABALIN 100 MG CAP PO SCH ×2 (08:53→20:17)
[2017-06-12] MEDS: BUDESONIDE-FORMOTEROL 160/4.5 MCG INHALER INH SCH ×2 (08:53→20:26)
[2017-06-12] MEDS: FUROSEMIDE 40 MG/4 ML VIAL IV PUSH SCH ×2 (08:53→17:02)
[2017-06-12] MEDS ORDERED: LEVA750T9 PO (09:00)
[2017-06-12] MEDS ORDERED: DILT1TAB12 PO (09:02)
[2017-06-12] MEDS ORDERED: CARV12.5 PO (09:02)
[2017-06-12] MEDS ORDERED: AMIO200T PO ×2 (09:02)
--- NOTE | 2017-06-12 10:59 | HHI.PR ---
Subjective Remarks Feeling ok Objective Vital Signs Date Time Temp Pulse Resp B/P (MAP) Pulse Ox O2 Delivery O2 Flow Rate FiO2 06/12/17 09:59 20 06/12/17 09:21 93 21 06/12/17 09:00 92 06/12/17 08:00 76 06/12/17 07:00 90 06/12/17 07:00 92 Room Air 06/12/17 07:00 97.3 71 18 140/71 (94) 92 06/12/17 06:00 78 06/12/17 05:00 78 06/12/17 04:00 74 06/12/17 03:00 97.8 82 16 119/68 (85) 93 06/12/17 03:00 90 06/12/17 02:00 76 06/12/17 01:00 82 06/12/17 00:00 82 06/11/17 23:00 79 06/11/17 23:00 83 18 132/72 (92) 95 06/11/17 22:00 82 06/11/17 21:39 97 06/11/17 21:00 80 06/11/17 20:00 74 06/11/17 19:45 97.5 79 20 125/69 (87) 94 06/11/17 19:45 94 Room Air 06/11/17 19:00 87 06/11/17 18:00 99 06/11/17 17:09 94 21 06/11/17 17:00 86 06/11/17 16:00 74 06/11/17 15:00 89 06/11/17 15:00 98.0 89 18 117/62 (80) 100 06/11/17 14:00 81 06/11/17 13:00 68 06/11/17 12:00 74 06/11/17 11:00 82 06/11/17 11:00 98.6 85 18 107/58 (74) 95 06/11/17 11:00 94 Nasal Cannula 2.00 I/O 06/11/17 06/11/17 06/11/17 06/12/17 06/12/17 06/12/17 07:00 15:00 23:00 07:00 15:00 23:00 Intake Total 600 ml 517.5 ml 890 ml 480 ml Output Total 750 ml 475 ml 1650 ml Balance -150 ml 517.5 ml 415 ml -1170 ml Intake Oral 480 ml 840 ml 480 ml IV Total 120 ml 517.5 ml 50 ml Output Urine Total 750 ml 475 ml 1650 ml # Bowel Movements 2 0 Result Diagram: 06/12/1761706/12/17617 Imaging Alert, fully oriented Lungs: ventilated Heart: S1, S2 regular, no gallop Abdomen: soft, obese, no mass Ext: no edema Last Impressions Head CT 06/10/17 0000 Signed Impressions: Service Date/Time: Saturday, June 10, 2017 18:23 - CONCLUSION: Negative noncontrast head CT. Rajeev Madrid MD Chest X-Ray 06/07/17 2336 Signed Impressions: Service Date/Time: Wednesday, June 07, 2017 23:46 - CONCLUSION: Interval development of fullness and indistinctness of the central bronchopulmonary markings, right pleural effusion, and patchy infiltrates in the left lower lobe. Mckinley Villegas MD Current Medications Medications (Trade) Dose Ordered Sig/Chato Route Start Time Stop Time Status Last Admin (Lipitor) 40 mg HS PO 06/08/17 21:00 06/11/17 21:31 (Lyrica) 200 mg BID PO 06/08/17 09:00 06/12/17 08:53 (NS Flush) 2 ml UNSCH PRN IV FLUSH 06/08/17 05:00 (NS Flush) 2 ml BID IV FLUSH 06/08/17 09:00 06/12/17 08:53 (Tylenol) 650 mg Q4H PRN PO 06/08/17 05:00 (Zofran Inj) 4 mg Q6H PRN IV PUSH 06/08/17 05:00 (Lasix Inj) 40 mg BID@,18 IV PUSH 06/08/17 09:00 06/12/17 08:53 (D50w (Vial) Inj) 50 ml UNSCH PRN IV PUSH 06/08/17 05:00 (Glucagon Inj) 1 mg UNSCH PRN OTHER 06/08/17 05:00 (NovoLOG SUPPLEMENTAL SCALE) 1 ACHS SLIDING SCALE SQ 06/08/17 08:00 06/12/17 08:00 Pharmacy Profile Note 0 ml @ 0 mls/hr UNSCH OTHER 06/08/17 08:00 (Tayler-Colace) 1 tab BID PO 06/08/17 21:30 06/11/17 08:08 (Senokot) 17.2 mg Q12H PRN PO 06/08/17 21:30 06/08/17 21:53 (Dulcolax Supp) 10 mg DAILY PRN RECTAL 06/08/17 21:30 (Benadryl) 25 mg HS PRN PO 06/09/17 21:00 06/09/17 23:33 (Cordarone) 400 mg Q12HR PO 06/10/17 11:00 06/12/17 08:53 (Mucinex Er) 600 mg BID PO 06/10/17 11:00 06/12/17 08:52 (KCl) 20 meq Q12HR PO 06/10/17 11:00 06/12/17 08:52 (Coreg) 25 mg BID PO 06/10/17 21:00 06/12/17 08:52 Diltiazem HCl 125 mg/Sodium Chloride 125 ml @ 5 mls/hr TITRATE PRN IV 06/10/17 15:15 06/11/17 08:27 (Duoneb Neb) 1 ampule Q6HR NEB INH 06/10/17 16:00 06/12/17 09:21 (Atrovent Neb) 0.5 mg Q6HR NEB PRN INH 06/10/17 15:15 (Symbicort 160-4.5 Mcg Inh) 2 puff Q12HR INH 06/10/17 21:00 06/12/17 08:53 (Coumadin) 2.5 mg DAILY@1600 PO 06/12/17 16:00 Future Hold (Cardizem) 30 mg Q6HR PO 06/11/17 12:00 06/12/17 05:56 (Levaquin) 750 mg DAILY PO 06/11/17 15:15 06/12/17 08:52 (Tessalon) 100 mg TID PRN PO 06/12/17 03:15 06/12/17 03:25 Assessment and Plan Problem List: (1) Atrial fibrillation ICD Codes: I48.91 - Unspecified atrial fibrillation Plan: In atrial fibrillation/ left atrial tach This is may be due to acute inflammation Cardioversion discussed The risks, the nature and benefits of the procedure discussed. Patient and family understand and agree to proceed Patient can be DH later today (2) Palpitations ICD Codes: R00.2 - Palpitations Plan: No tachy reported (3) Shortness of breath ICD Codes: R06.02 - Shortness of breath Plan: Improving Natalie Washburn MD Jun 12, 2017 10:59
[2017-06-12] MEDS ORDERED: WARFARIN SOD 2.5 MG TAB PO SCH (16:00)
[2017-06-12] MEDS: ATORVASTATIN 40 MG TAB PO SCH (20:20)
--- NOTE | 2017-06-13 05:36 | MR ---
cc: DANI ARTEAGA M.D. [id number] DATE 06/12/2017 PROCEDURE PERFORMED Cardioversion. INDICATIONS FOR PROCEDURE Mr. Puente is an 81-year-old gentleman with history of atrial fibrillation, previous ablation, back in atrial tachycardia, to undergo cardioversion. The risks, the nature and the benefit of the procedure are clearly stated to him. The risks include cardiac arrest, need for endotracheal intubation and even . The patient understood and agreed to proceed. PROCEDURE After written consent was obtained, the patient was evaluated by the anesthesiologist. Once sedation was verified, anterolateral pads were placed. Subsequently a 200 sync biphasic joule was delivered that converted the patient into sinus rhythm. No incident reported. The patient tolerated the procedure. CONCLUSIONS Successful cardioversion. COMMEND AND RECOMMENDATIONS The patient is going to be observed, will be discharged home later today. Dani Arteaga MD HS/SSB /6:11 PM /5:16 AM
== END 2017-06-12 20:39 | disposition home health service (06) | DRG 291 ==
LOC: NEPE 23:25 → NEDA 06-08 03:46 → N06B 06-08 07:56 → HCIS 06-10 16:21
PROVIDERS: ADMIT Hospitalist; ATTEND Hospitalist
PROC: 5A2204Z Restoration of Cardiac Rhythm, Single (ICD-10-PCS; principal; 2017-06-12)
DX: I13.0 Hypertensive heart and chronic kidney disease with heart failure and stage 1 through stage 4 chronic kidney disease, or unspecified chronic kidney disease (principal); J18.9 Pneumonia, unspecified organism; E11.22 Type 2 diabetes mellitus with diabetic chronic kidney disease; J44.0 Chronic obstructive pulmonary disease with (acute) lower respiratory infection; R06.03 Acute respiratory distress; E11.40 Type 2 diabetes mellitus with diabetic neuropathy, unspecified; I48.91 Unspecified atrial fibrillation; I47.1 Supraventricular tachycardia; I50.23 Acute on chronic systolic (congestive) heart failure; Z68.41 Body mass index [BMI] 40.0-44.9, adult; R09.02 Hypoxemia; I25.10 Atherosclerotic heart disease of native coronary artery without angina pectoris; N18.9 Chronic kidney disease, unspecified; E78.5 Hyperlipidemia, unspecified; E66.9 Obesity, unspecified; R74.8 Abnormal levels of other serum enzymes; Y95 Nosocomial condition; Z79.01 Long term (current) use of anticoagulants; Z79.4 Long term (current) use of insulin; Z87.891 Personal history of nicotine dependence; Z95.5 Presence of coronary angioplasty implant and graft
CPT/HCPCS: 70450; 71045; 76937; 80048; 80053; 80202; 81001; 82550; 82552; 82948; 83036; 83735; 83880; 84100; 84439; 84443; 84484; 85025; 85027; 85610; 85730; 87040; 93005; 93306; 94150; 94618; 94640; 94664; 96365; 96375; J1815; J1940; J2543; J3370; J7040

== ENCOUNTER 2017-06-17 12:00 | Emergency (ER) | payer MEDICARE ==
[~2017-06-17 12:00] MED LIST changes: +AMIO200T PO; +CARV12.5 PO; +DILT1TAB12 PO; +LEVA750T9 PO; -WARF-18 PO
[2017-06-17 12:02] VITALS: BP 123/82; PULSE 86; RESP 24; TEMP 97.8; O2SAT 95
--- NOTE | 2017-06-17 12:27 | PD ---
HPI Chief Complaint: Pain: Acute or Chronic Time Seen by Provider: 12:13 Travel History International Travel<30 days: No Contact w/Intl Traveler<30days: No Traveled to known affect area: No History of Present Illness HPI 81-year-old male presents to the emergency department reporting bilateral lower extremity pain for 3 days. Patient was recently discharged on June 12 for pneumonia, CHF. He also has history of A. fib and had cardiac ablation done on June 05, 2017. Reports shortness of breath that has been ongoing since before his last admission as well as bilateral lower extremity edema. He states that he also would like an INR checked for his Coumadin. He is from [place] and comes every May to [place]. He states he does not have a physician here to check his INR. Patient denies any chest pain. No abdominal pain. No nausea, vomiting, diarrhea. Patient states the pain is in his bilateral lower calves without radiation. Walking will exacerbate pain. Rest help alleviate pain. He states that he thinks one of his new medications as doing this. Moderate severity. PFSH Past Medical History Hx Anticoagulant Therapy: Yes Autoimmune Disease: No Heart Rhythm Problems: Yes Cancer: No Cardiac Catheterization: Yes (stents) Cardiovascular Problems: Yes High Cholesterol: Yes Chest Pain: Yes Congestive Heart Failure: Yes Diabetes: Yes Diminished Hearing: No Endocrine: No Hypertension: Yes Immune Disorder: No Musculoskeletal: No Neurologic: No Respiratory: No Past Surgical History Abdominal Surgery: No Cardiac Surgery: Yes (ablation for A-fib) Ear Surgery: No Endocrine Surgery: No Eye Surgery: Yes (cataracts) Genitourinary Surgery: No Oral Surgery: No Thoracic Surgery: No Other Surgery: Yes (hemorrhoidectomy) Social History Alcohol Use: No Tobacco Use: No Substance Use: No Allergies-Medications (Allergen,Severity, Reaction): Coded Allergies: pioglitazone (Unverified Allergy, Severe, 06/17/17) Reported Meds & Prescriptions Reported Meds & Active Scripts Active Amiodarone (Amiodarone HCl) 200 Mg Tab 200 Mg PO DAILY Cardizem LA (Diltiazem ER 24 HR) 120 Mg Sandra 120 Mg PO DAILY Reported Klor-Con 10 (Potassium Chloride) 10 Meq Tab 10 Meq PO DAILY Warfarin 5 Mg Tab 5 Mg PO DAILY ONE 5 MG TAB Q MON, WED, MON Humulin R Inj (Insulin Human Regular) 1,000 Unit/10 Ml Vial 5-25 Units SQ ACHS Max dose at bedtime:( )units; sugars < 70,(0)units; sugars 150-199,(5)units; sugars 200-249,(10)units; sugars 250-299,(15)units; sugars 300-349,(20)units; sugars more than 349,(25)units. Atorvastatin (Atorvastatin Calcium) 40 Mg Tab 40 Mg PO HS Furosemide 40 Mg Tab 40 Mg PO DAILY Victoza Inj (Liraglutide Inj) 18 Mg/3 Ml Pen 1.8 Mg SQ DAILY Carvedilol 25 Mg Tab 25 Mg PO DAILY Lyrica (Pregabalin) 200 Mg Cap 200 Mg PO BID PT TAKES 200MG IN AM AND 100MG AT HS Review of Systems Except as stated in HPI: all other systems reviewed are Neg Physical Exam Narrative GENERAL: Well-nourished, well-developed male patient, afebrile. SKIN: Focused skin assessment warm/dry. HEAD: Normocephalic. Atraumatic. EYES: No scleral icterus. No injection or drainage. NECK: Supple, trachea midline. No JVD or lymphadenopathy. CARDIOVASCULAR: Regular rate and rhythm without murmurs, gallops, or rubs. RESPIRATORY: Breath sounds equal bilaterally. No accessory muscle use. Lungs sounds are clear to auscultation. GASTROINTESTINAL: Abdomen soft, non-tender, nondistended. MUSCULOSKELETAL: No cyanosis. Bilateral 3+ pitting edema to lower extremities. BACK: Nontender without obvious deformity. No CVA tenderness. Data Data Last Documented VS Vital Signs Date Time Temp Pulse Resp B/P (MAP) Pulse Ox O2 Delivery O2 Flow Rate FiO2 06/17/17 13:59 97.8 69 18 152/70 (97) 95 Room Air Orders Orders Complete Blood Count With Diff (06/17/17 12:20) Basic Metabolic Panel (Bmp) (06/17/17 12:20) B-Type Natriuretic Peptide (06/17/17 12:20) Act Partial Throm Time (Ptt) (06/17/17 12:20) Prothrombin Time / Inr (Pt) (06/17/17 12:20) Magnesium (Mg) (06/17/17 12:20) Ckmb (Isoenzyme) Profile (06/17/17 12:20) Troponin I (06/17/17 12:20) Iv Access Insert/Monitor (06/17/17 12:20) Electrocardiogram (06/17/17 12:20) Ecg Monitoring (06/17/17 12:20) Oximetry (06/17/17 12:20) Oxygen Administration (06/17/17 12:20) Chest, Single Ap (06/17/17 12:20) Sodium Chloride 0.9% Flush (Ns Flush) (06/17/17 12:30) CKMB (06/17/17 12:40) CKMB% (06/17/17 12:40) Phytonadione (Mephyton) (06/17/17 14:15) Acetaminophen (Tylenol) (06/17/17 14:30) Labs Laboratory Tests Test 06/17/17 12:40 White Blood Count 10.2 TH/MM3 Red Blood Count 4.08 MIL/MM3 Hemoglobin 13.0 GM/DL Hematocrit 37.6 % Mean Corpuscular Volume 92.1 FL Mean Corpuscular Hemoglobin 31.8 PG Mean Corpuscular Hemoglobin Concent 34.6 % Red Cell Distribution Width 14.4 % Platelet Count 219 TH/MM3 Mean Platelet Volume 9.0 FL Neutrophils (%) (Auto) 81.6 % Lymphocytes (%) (Auto) 10.4 % Monocytes (%) (Auto) 5.6 % Eosinophils (%) (Auto) 1.6 % Basophils (%) (Auto) 0.8 % Neutrophils # (Auto) 8.3 TH/MM3 Lymphocytes # (Auto) 1.1 TH/MM3 Monocytes # (Auto) 0.6 TH/MM3 Eosinophils # (Auto) 0.2 TH/MM3 Basophils # (Auto) 0.1 TH/MM3 CBC Comment DIFF FINAL Differential Comment Prothrombin Time 70.9 SEC Prothromb Time International Ratio 7.1 RATIO Activated Partial Thromboplast Time 43.4 SEC Blood Urea Nitrogen 25 MG/DL Creatinine 1.70 MG/DL Random Glucose 144 MG/DL Calcium Level 8.5 MG/DL Magnesium Level 2.3 MG/DL Sodium Level 139 MEQ/L Potassium Level 4.4 MEQ/L Chloride Level 103 MEQ/L Carbon Dioxide Level 32.6 MEQ/L Anion Gap 3 MEQ/L Estimat Glomerular Filtration Rate 39 ML/MIN Total Creatine Kinase 116 U/L Creatine Kinase MB 0.6 NG/ML Troponin I LESS THAN 0.02 NG/ML B-Type Natriuretic Peptide 178 PG/ML MDM Medical Decision Making Medical Screen Exam Complete: Yes Emergency Medical Condition: Yes Medical Record Reviewed: Yes Interpretation(s) chest x-ray - CONCLUSION: 1. Minimal bibasilar subsegmental atelectasis. 2. Cardiomegaly. Differential Diagnosis CHF exacerbation versus electrolyte abnormality versus unlikely DVT Narrative Course 81-year-old male presents to the emergency department for evaluation of bilateral lower extremity pain, chronic edema, chronic shortness of breath. EKG , CBC, BMP, BNP, magnesium, CK, troponin, PTT, PT/INR, chest x-ray are ordered and pending. EKG shows atrial fibrillation, HR 74. CBC shows no acute abnormality. BMP shows BUN 25, creatinine 1.70, which is chronic for patient. BNP is 178. Magnesium is 2.3. CK is 116. Troponin is less than 0.02. PTT is 43.4, PT is 70.9, INR is 7.1. Chest x-ray shows minimal bibasilar subsegmental atelectasis ; cardiomegaly. My attending physician, Dr. Mayfield, also examined patient and agrees with plan and disposition. Patient is given vitamin k 2.5 mg PO and tylenol 650 mg PO for pain. He is to hold his Coumadin today and tomorrow and see Dr. Washburn on Monday for INR recheck. He verbalizes agreement and understanding. He is to return here for any acute, worsening of symptoms. The patient was discharged in stable condition with instructions, including return instructions and follow up instructions. Diagnosis Primary Impression: Supratherapeutic INR Referrals: Natalie Washburn MD 2 days Patient Instructions: Elevated INR (ED), General Instructions Additional Instructions: Hold Coumadin today and tomorrow. Follow up with Dr. Washburn on Monday for INR recheck. Return to the emergency department for any acute, worsening of symptoms. Med/Other Pt SpecificInfo: No Change to Meds Disposition: 01 DISCHARGE HOME Condition: Stable Lyndsay Martines Jun 17, 2017 12:27
[2017-06-17] MEDS ORDERED: KLOR10TA PO (12:28)
[2017-06-17] MEDS ORDERED: SODIUM CHLORIDE 0.9% FLUSH 10 ML FLUSH IVF PRN (12:30)
[2017-06-17 12:44] VITALS: RESP 20; O2SAT 96
--- NOTE | 2017-06-17 12:44 | RADRPT ---
EXAM DATE/TIME: 06/17/2017 12:27 [facility] COMPARISON: CHEST SINGLE AP, June 07, 2017, 23:46. INDICATIONS : Short of Breath MEDICAL HISTORY : Cardiovascular disease. SURGICAL HISTORY : Cardiac Stent ENCOUNTER: Initial ACUITY: 1 day PAIN SCORE: 0/10 LOCATION: chest FINDINGS: A single view of the chest demonstrates minimal bibasilar densities. No consolidation. Cardiomegaly. The cardiomediastinal contours are unremarkable. Osseous structures are intact. CONCLUSION: 1. Minimal bibasilar subsegmental atelectasis. 2. Cardiomegaly. Fausto Hallman MD on June 17, 2017 at 12:39 Board Certified Radiologist. This report was verified electronically.
[2017-06-17 13:11] LABS: AUTOMATED NEUTROPHIL # 8.3 TH/MM3 (1.8-7.7); BASOPHIL # 0.1 TH/MM3 (0-0.2); BASOPHIL % 0.8 % (0.0-2.0); EOSINOPHIL # 0.2 TH/MM3 (0-0.4); EOSINOPHIL % 1.6 % (0.0-4.0); HEMATOCRIT 37.6 % (39.0-51.0); LYMPH % 10.4 % (9.0-44.0); LYMPHOCYTE # 1.1 TH/MM3 (1.0-4.8); MEAN CELL VOLUME 92.1 FL (80.0-100.0); MEAN CORPUSCULAR HEMOGLOBIN 31.8 PG (27.0-34.0); MEAN CORPUSCULAR HGB CONC 34.6 % (32.0-36.0); MONO % 5.6 % (0.0-8.0); MONOCYTE # 0.6 TH/MM3 (0-0.9); NEUT % 81.6 % (16.0-70.0); PLATELET COUNT 219 TH/MM3 (150-450); RED BLOOD COUNT 4.08 MIL/MM3 (4.50-5.90); RED CELL DISTRIBUTION WIDTH 14.4 % (11.6-17.2); WHITE BLOOD COUNT 10.2 TH/MM3 (4.0-11.0)
[2017-06-17 13:25] LABS: PROTHROMBIN TIME - PATIENT 70.9 SEC (9.8-11.6)
[2017-06-17 13:29] LABS: INTERNATIONAL NORMALIZED RATIO 7.1 RATIO
[2017-06-17 13:34] LABS: BICARBONATE 32.6 MEQ/L (21.0-32.0); BLOOD UREA NITROGEN 25 MG/DL (7-18); CALCIUM 8.5 MG/DL (8.5-10.1); CHLORIDE 103 MEQ/L (98-107); GLOMERULAR FILTRATION RATE 39 ML/MIN (>89); GLUCOSE,RANDOM 144 MG/DL (74-106); MAGNESIUM 2.3 MG/DL (1.5-2.5); SODIUM (NA) 139 MEQ/L (136-145); TROPONIN I LESS THAN 0.02 NG/ML (0.02-0.05)
[2017-06-17 13:59] VITALS: BP 152/70; PULSE 69; RESP 18; TEMP 97.8; O2SAT 95
[2017-06-17] MEDS ORDERED: PHYTONADIONE 5 MG TAB PO ONE (14:15)
[2017-06-17] MEDS ORDERED: ACETAMINOPHEN 325 MG TAB PO ONE (14:30)
--- NOTE | 2017-06-17 14:32 | PD ---
Physical Exam Narrative I, Dr. Mayfield, have reviewed the advance practice practitioner's documentation and am in agreement, met with the patient face to face, made the diagnosis, and the medical decision making was done by me. *My assessment and Findings: Supratherapeutic INR vs. muscle cramps vs. Hurtado cyst vs. DVT 81yo M with afib on coumadin here with complain of bilateral calf pain for a few days. Pt also wants to get his INR check. Labs reviewed, no leukocytosis. H/H 13/37.6. INR is supratherapeutic at 7.1. However, pt has no signs of bleeding. Denies any epistaxis, headache, chest pain, sob, n/v, abdominal pain , focal weakness or numbness. Denies any trauma. No mucosal bleeding. Bilateral lower extremity has no ecchymoses and soft compartments. Only mildly tender on deep palpation. Pt given acetaminophen for pain. Pt given vitamin K 2.5mg PO since he is elderly. Instructed pt to hold coumadin today and tomorrow and pt has appointment with rotary adjuster Dr. Zurita the next day. Strict return precautions given. Data Data Last Documented VS Vital Signs Date Time Temp Pulse Resp B/P (MAP) Pulse Ox O2 Delivery O2 Flow Rate FiO2 06/17/17 13:59 97.8 69 18 152/70 (97) 95 Room Air Orders Orders Complete Blood Count With Diff (06/17/17 12:20) Basic Metabolic Panel (Bmp) (06/17/17 12:20) B-Type Natriuretic Peptide (06/17/17 12:20) Act Partial Throm Time (Ptt) (06/17/17 12:20) Prothrombin Time / Inr (Pt) (06/17/17 12:20) Magnesium (Mg) (06/17/17 12:20) Ckmb (Isoenzyme) Profile (06/17/17 12:20) Troponin I (06/17/17 12:20) Iv Access Insert/Monitor (06/17/17 12:20) Electrocardiogram (06/17/17 12:20) Ecg Monitoring (06/17/17 12:20) Oximetry (06/17/17 12:20) Oxygen Administration (06/17/17 12:20) Chest, Single Ap (06/17/17 12:20) Sodium Chloride 0.9% Flush (Ns Flush) (06/17/17 12:30) CKMB (06/17/17 12:40) CKMB% (06/17/17 12:40) Acetaminophen (Tylenol) (06/17/17 14:30) Ed Discharge Order (06/17/17 14:26) Phytonadione Liq (Mephyton Liq) (06/17/17 14:45) Labs Laboratory Tests Test 06/17/17 12:40 White Blood Count 10.2 TH/MM3 Red Blood Count 4.08 MIL/MM3 Hemoglobin 13.0 GM/DL Hematocrit 37.6 % Mean Corpuscular Volume 92.1 FL Mean Corpuscular Hemoglobin 31.8 PG Mean Corpuscular Hemoglobin Concent 34.6 % Red Cell Distribution Width 14.4 % Platelet Count 219 TH/MM3 Mean Platelet Volume 9.0 FL Neutrophils (%) (Auto) 81.6 % Lymphocytes (%) (Auto) 10.4 % Monocytes (%) (Auto) 5.6 % Eosinophils (%) (Auto) 1.6 % Basophils (%) (Auto) 0.8 % Neutrophils # (Auto) 8.3 TH/MM3 Lymphocytes # (Auto) 1.1 TH/MM3 Monocytes # (Auto) 0.6 TH/MM3 Eosinophils # (Auto) 0.2 TH/MM3 Basophils # (Auto) 0.1 TH/MM3 CBC Comment DIFF FINAL Differential Comment Prothrombin Time 70.9 SEC Prothromb Time International Ratio 7.1 RATIO Activated Partial Thromboplast Time 43.4 SEC Blood Urea Nitrogen 25 MG/DL Creatinine 1.70 MG/DL Random Glucose 144 MG/DL Calcium Level 8.5 MG/DL Magnesium Level 2.3 MG/DL Sodium Level 139 MEQ/L Potassium Level 4.4 MEQ/L Chloride Level 103 MEQ/L Carbon Dioxide Level 32.6 MEQ/L Anion Gap 3 MEQ/L Estimat Glomerular Filtration Rate 39 ML/MIN Total Creatine Kinase 116 U/L Creatine Kinase MB 0.6 NG/ML Troponin I LESS THAN 0.02 NG/ML B-Type Natriuretic Peptide 178 PG/ML [facility] Supervised Visit with SHU: Yes Interpretation(s) EKG: Afib at 74bpm. Normal axis. Diagnosis Primary Impression: Supratherapeutic INR Referrals: Natalie Washburn MD 2 days Patient Instructions: General Instructions, Elevated INR (ED) Additional Instruction: Hold Coumadin today and tomorrow. Follow up with Dr. Washburn on Monday for INR recheck. Return to the emergency department for any acute, worsening of symptoms. Disposition: 01 DISCHARGE HOME Condition: Stable Jagruti Mayfield Jun 17, 2017 14:32
[2017-06-17] MEDS ORDERED: PHYTONADIONE 2.5 MG/SWFI 2.5 ML ORAL SYR PO ONE (14:45)
[2017-06-17] MEDS ORDERED: PHYTONADIONE 5 MG/SWFI 5 ML ORAL SYR PO ONE (15:15)
--- NOTE | 2017-06-18 13:30 | EKG ---
Date Performed: 06/17/2017 Time Performed: 12:34:08 PTAGE: 81 years EKG: ATRIAL FIBRILLATION LOW QRS VOLTAGE IN EXTREMITY LEADS ABNORMAL RHYTHM ECG Compared to PREVIOUS TRACING , ventricular response to the atrial fibrillation is now controlled. PRE VIOUS TRACIN06/10/2017 14.42 DOCTOR: Jeanmarie Edwards Interpretating Date/Time 06/18/2017 13:28:31
== END 2017-06-17 15:40 | disposition home or self-care (01) ==
LOC: NEPE 12:00
DX: R79.1 Abnormal coagulation profile (principal); I48.91 Unspecified atrial fibrillation; R60.0 Localized edema; R06.02 Shortness of breath; E11.9 Type 2 diabetes mellitus without complications; E78.00 Pure hypercholesterolemia, unspecified; I11.0 Hypertensive heart disease with heart failure; I50.9 Heart failure, unspecified; Z79.01 Long term (current) use of anticoagulants
CPT/HCPCS: 71045; 80048; 82550; 82552; 83735; 83880; 84484; 85025; 85610; 85730; 93005; 99285